=== PATIENT | male | born 1960 | race Caucasian/White ===

== ENCOUNTER 2024-05-08 14:43 | Outpatient (CLI) | payer OTHER, SELFPAY ==
[2024-05-08 15:01] LABS: Hematocrit 44.7 % (42.0-52.0); Hemoglobin 14.8 g/dL (14.0-18.0); Mean Corpuscular HGB Conc 33.1 g/dl (32-36); Mean Corpuscular Hemoglobin 30.8 pg (26-34); Mean Corpuscular Volume 92.9 fl (80-100); Mean Platelet Volume 8.7 fl (7.4-10.4); Platelet Count Result 200 k/mm3 (150-375); Red Blood Count 4.81 M/mm3 (4.6-6.20); Red Cell Distribution Width 13.2 % (11.5-14.5)
[2024-05-08 15:07] LABS: Blood Urea Nitrogen 21 mg/dL (8-26); Carbon Dioxide 25 mmol/L (22-30); Chloride 102 mmol/L (98-109); Estimated Glomerular Filt Rate > 60; Glucose 165 mg/dL (70-105); Ionized Calcium (POC) 1.18 mmol/L (1.11-1.31); Potassium 3.9 mmol/L (3.5-4.9); Sodium 139 mmol/L (138-146)
== END 2024-05-08 14:44 | disposition home or self-care (01) ==
PROVIDERS: PCP Internal Medicine; Visit Provider Internal Medicine Hematology & Oncology
DX: D75.1 Secondary polycythemia (principal)
CPT/HCPCS: 36415; 80047; 85027

== ENCOUNTER 2025-05-08 13:35 | Outpatient (CLI) | payer OTHER, SELFPAY ==
--- OUTSIDE RECORDS SUMMARY | 2025-05-08 13:40 | XMS_ITS | Data Portability ---
Author Organization [facility] [place] Address [address] [address] Care Team Providers Care Junior Brand Manager Name Role Phone LINO MOON Primary Care Provider [phone] Assessment Encounter Date Assessment Date Assessment LastModified by Organization Details LastModified Time 11/30/2024 11/30/2024 Telehealth visit Mode of communication: Secure audiovisual communication Patient location: [place], [place] Physician location: [facility], [place] Total time spent with patient: 11 minutes Total time spent on visit: 21 minutes Assessment: Familial hypercholesterole ines: Noticing increasing myalgias. Discussed options and after shared decision-making we will discontinue rosuvastatin and continue Repatha. CK levels normal. Encouraged to reach out to us regarding update on symptoms in 2 weeks' time. Check follow-up CMP and lipid panel in 8 weeks. Continue current dose of Vascepa. Diet/exercise discussed at length. Coronary artery disease with no angina: Maintained on single antiplatelet therapy with aspirin. No angina. Status post CABG to LAD with OM lesion managed medically. Hypertension: Low-sodium diet, ambulatory blood pressure monitoring. Continue losartan 50 mg daily. Aortic stenosis: Moderate. No symptoms. We will continue monitoring with periodic echocardiograms. Atrial fibrillation: Postoperative. Encouraged self rhythm monitoring and reaching out to us if atrial fibrillation noted on smart watch to consider 30 day event monitor and consideration for resumption of anticoagulation. Type 2 diabetes: Maintained on Mounjaro monitored per endocrinology MARY: Currently intermittently using CPAP. Discussed relationship with untreated sleep apnea and AFib. Encouraged follow-up with sleep specialist to optimize CPAP treatment. We will request a routine in office assessment in 2 months with CMP and lipid panel prior. [email or web address] Not available 11/30/2024 12:26:15 Plan of Treatment Reminders Order Date Submit Date Provider Last Modified By Organization Details Last Modified Time Details Appointments ANY 15 2024 01:15P Sebas Reagan MD Not available Not available Not available Lab CBC [address] Outpatient Lab, [address] [place] [address], [address], 03/29/2025 14:20:24 CMP, serum or plasma [address] Outpatient Lab, [facility] [place], [address], 03/29/2025 14:20:24 lipid panel, serum [address] Outpatient Lab, [address] [place] [address], [address], 03/29/2025 14:20:24 CMP, serum or plasma 2024 025 [facility] Outpatient Lab, [facility] [place], [address], 04/24/2025 09:32:33 lipid panel, serum 2024 025 [facility] Outpatient Lab, [address] [place] [address], [address], 04/24/2025 09:32:33 CMP, serum or plasma 2024 025 [facility], [address] [place], [address], 01/29/2025 11:05:29 lipid panel, serum 2024 025 [facility], [address] [place], [address], 01/29/2025 11:16:19 BMP, serum or plasma 2023 025 [facility] Out[facility], [address] [place], [address], 10/31/2024 09:45:50 CBC 2023 025 [facility] Out[facility], [address] [place] [address] , [place], [address], 10/31/2024 09:45:50 lipid panel, serum 2023 025 [facility], [address] [place] [address] [place], [address], 11/28/2024 14:53:55 hepatic function panel, serum 2023 025 [facility] Out[facility], [address] [place] [address] [place], [address], 10/31/2024 09:45:50 Referral None recorded. Procedures None recorded. Surgeries None recorded. Imaging US, echocardi ogram, transthor acic, complete, w/ color flow 2024 025 [facility], [address], [place], [address], 04/17/2025 15:22:59 Medication Orders Xarelto 20 mg tablet 2024 025 [facility], [address] [place] [address] [address], [place], [address], 03/29/2025 17:08:52 Tricor 145 mg tablet 2024 025 [facility]armacy #[id number], [address] [place], [address], 02/02/2025 14:55:36 aspirin 81 mg tablet,de layed release 2023 024 [facility]/Pharmacy #[id number], [address] [place], [address], 09/27/2024 16:05:57 Repatha SureClick 140 mg/mL subcutane ous pen injector 2023 1204 024 [facility]/Pharmacy #[id number], [address] [place], [address], 09/27/2024 16:05:51 Patient TargetsNo targets recorded. Patient Instructions Encounter Date Encounter Id Patient Instructions Last Modified By Organization Details Last Modified Time 09/27/2024 [id number] 1. Labs 4 weeks 2. Follow up 4 months [email or web address] Not available 09/27/2024 16:08:05 02/02/2025 [id number] A healthy lifestyle: care instructions Not available 02/02/2025 14:55:33 03/29/2025 [id number] A healthy lifestyle: care instructions Not available 03/29/2025 14:20:24 Reason for Referral None Reported. Results Created Date Observation Date Name Description Value Unit Range Abnormal Flag Note LastModifiedBy Organization Detail LastModifiedTime 09/29/2009/29/2024 Gluco se [Mass /volu me] in Blood by Autom ated test strip glucose [mass/volume ] in blood by automated test strip 125 mg/dL low: 70mg/d Lhigh: 99mg/d L high Not Available Not Available 03/29/2025 04:09:25 09/29/20 24 09/29/2024 Gluco se [Mass /volu me] in Blood by Autom ated test strip interpretati on and review of laboratory results Abnorm al Not Available Not Available 04:09:25 09/29/20 24 09/29/2024 Gluco se [Mass /volu me] in Blood by Autom ated test strip glucose [mass/volume ] in blood by automated test strip 107 mg/dL low: 70mg/d Lhigh: 99mg/d L high Not Available Not Available 03/29/2025 04:09:25 09/29/20 24 09/29/2024 Gluco se [Mass /volu me] in Blood by Autom ated test strip interpretati on and review of laboratory results Abnorm al Not Available Not Available 04:09:25 12/06/09/29/2024 Hemog lobin A1c/H emogl obin. total in Blood hemoglobin A1C/hemoglob in.total in blood 6.9 % high: 5.7% high HGB A1C 6.9 (H) <5.7 % 09/29 7:57 AM [facility] Not Available Not Available 02/02/2025 14:28:14 09/29/20 24 09/29/2024 Hemog lobin A1c/H emogl obin. total in Blood glucose mean value [mass/volume ] in blood estimated from glycated hemoglobin 151 mg/dL ESTIM ATED AVG GLUCO SE 151 mg/dL 09/29 7:57 AM [facility] Not Available Not Available 02/02/2025 14:28:14 09/29/20 24 09/29/2024 Hemog lobin A1c/H emogl obin. total in Blood interpretati on and review of laboratory results Abnorm al Not Available Not Available 14:28:14 09/29/20 24 10/03/2024 Patho logy study pathology study [facility] ment of [facility] ne [address] [place] [address] Teleph one: , extens ion [id number] Pathol ogy Report Surgic al Pathol ogy Report Name: CHRISTOPH QUARLES Drew KINGSLEY JR. Specim en #: [id number] Age: [birth year] (Age: 64) Locati on: [place] Sex: M Proced ure Date: Hospit al #: [id number] Date Receiv ed: Date Report ed: 2023 Provid er: BLANCA Alva MD Source : Soft tissue mass, abdomi nal wall Clinic al Histor y: Right upper quadra nt abdomi nal mass. FINAL DIAGNO SIS: Soft tissue , abdomi nal wall mass, excisi on: -Matur e fibroa dipose tissue consis tent with lipoma . Gross Descri ption: Receiv ed in formal in, labele d with a patien t label and as abdom inal wall mass are multip le disrup rukhsana pieces of soft yellow tissue , 10.0 x 7.0 x 1.5 cm in aggreg ate. Sectio ns reveal pale yellow cut surfac es. Repres entati ve tissue is submit rukhsana in casset te 1. Gross examin ation (when applic able), interp retati on, and [facility] [address] [place] [address]. Elec annamaria tapia Signed Out VENICE Hilliard MD Not Available Not Available 04:09:25 11/02/19 25 11/02/2024 Hemog lobin A1c/H emogl obin. total in Blood hemoglobin A1C, POC 7.1 % low: 4%high : 5.6% Hemog lobin A1C, POC 7.1 4.0 - 5.6 % Not Available Not Available 02/02/2025 03:30:42 02/06/20 25 02/05/2025 Hemog lobin A1c/H emogl obin. total in Blood hemoglobin A1C, POC 7.4 % low: 4%high : 5.6% Hemog lobin A1C, POC 7.4 4.0 - 5.6 % Not Available Not Available 03/20/2025 15:04:44 04/17/20 25 04/16/2025 US, echoc ardio gram, trans thora cic, compl ete, w/ color flow No observ ation record ed. [facility] [address] [place], [address], 04/18/2025 14:58:10 04/19/20 event monit or No observ ation record ed. [facility] [address], [place], [address], 04/20/2025 14:22:35 Result Notes None recorded. Problems Name Problem SNOMED Code Status Onset Date Resolution Date Notes Provider Name and Address Organization Details Recorded Time Atheroscler osis of coronary artery without angina pectoris [id number] 03 Active 2023 Tyler Reagan MD Attn: Rebekah bahena,[address], [place], [address], [facility] 4 16:22:09 Essential hypertensio n 07491603 Active 2023 Tyler Reagan MD Attn: Rebekah bahena,[address], [place], [address], [facility] 4 16:22:10 Thoracic aortic aneurysm without rupture 41652755 Active 2023 Tyler Reagan MD Attn: Rebekah bahena,[address], [place], [address], [facility] 4 16:22:12 Pure hypercholes terolemia 374007828 Active 2023 Tyler Reagan MD Attn: Rebekah bahena,[address], [place], [address], [facility] 4 16:22:14 Paroxysmal atrial fibrillatio n 973083204 Active 2023 Tyler Reagan MD Attn: Rebekah bahena,[address], [place], [address], [facility] 4 16:22:17 Type 2 diabetes mellitus without complicatio n 495399121 Active 2023 Tyler Reagan MD Attn: Rebekah bahena,[address], [place], [address], [facility] 4 16:23:01 Aortic valve stenosis 26878172 Active 2023 Tyler Reagan MD Attn: Rebekah bahena,[address], [place], [address], [facility] 4 16:23:59 Problem Notes None recorded. Procedures Surgical History Date Name Laterality Status Provider Name and Address Organization Details Recorded Time 4 Colonoscopy completed Tarsha Andersen RN [facility] 09/27/2024 15:46:04 4 resection of polyp completed Tarsha Andersen RN [facility] 09/27/2024 15:46:35 3 open heart surgery completed Tarsha Andersen RN [facility] 09/27/2024 15:52:19 Imaging Results None recorded. Procedure Notes None recorded. Medical Equipment None Reported. Allergies Allergen ID Allergen Name Allergen Category Reaction Reaction Severity Criticality Documentation Date Start Date Code Code System Note Provider Name and Address Organization Details Recorded Time [id number] niacin medicatio n Not available Not available Not available 09/27/2024 7393 RxNorm VALDEMAR Martinez, [facility] 4 15:48:07 456780 iodine medicatio n Not available Not available Not available 09/27/2024 5933 RxNorm VALDEMAR Martinez, [facility] 4 15:48:12 Medications Name Sig Start Date Stop Date Status Note LastModified by Organization Details LastModified Time losartan 50 mg tablet TAKE 1/2 TABLET BY MOUTH DAILY 2024 active Not Available Not Available Not Avai lable latanoprost 0.005 % eye drops INSTILL 1 DROP INTO BOTH EYES AT BEDTIME active Not Available Not Available No t Available metoprolol tartrate 100 mg tablet TAKE 1 TABLET BY MOUTH TWICE A DAY 09/27 completed Not Available Not Available Not Available amiodarone 200 mg tablet TAKE 1 TABLET BY MOUTH EVERY DAY 09/27 completed Not Available Not Available Not Available hydrocodone 5 mg-acetamin ophen 325 mg tablet prn active Not Available Not Available No t Available amlodipine 5 mg tablet TAKE 1 TABLET (5 MG TOTAL) BY MOUTH DAILY. 09/27 completed Not Available Not Available Not Available aspirin 81 mg tablet,gabbi yed release TAKE 1 TABLET BY MOUTH EVERY DAY active Not Available Not Available No t Available tramadol 50 mg tablet TAKE 1 TABLET (50 MG TOTAL) BY MOUTH EVERY 6 (SIX) HOURS NEEDED FOR ACUTE PAIN active Not Available Not Available No t Available triamcinolo ne acetonide 0.1 % topical cream APPLY A SMALL AMOUNT TO AFFECTED AREA TWICE A DAY NEEDED FOR LEFT ARM active Not Available Not Available No t Available glimepiride 1 mg tablet TAKE 1 TABLET BY MOUTH DAILY BEFORE BREAKFAST . active Not Available Not Available No t Available tamsulosin 0.4 mg capsule TAKE 1 CAPSULE BY MOUTH EVERY DAY active Not Available Not Available No t Available baclofen 10 mg tablet TAKE 1 TABLET BY MOUTH THREE TIMES A DAY active Not Available Not Available No t Available cephalexin 500 mg capsule TAKE 1 CAPSULE BY MOUTH FOUR TIMES A DAY FOR 7 DAYS 09/27 completed Not Available Not Available Not Available metformin 1,000 mg tablet TAKE 1 TABLET BY MOUTH TWICE A DAY active Not Available Not Available No t Available prednisone 50 mg tablet PLEASE SEE ATTACHED FOR DETAILED DIRECTION S 09/27 completed Not Available Not Available Not Available gabapentin 300 mg capsule TAKE 1 CAPSULE BY MOUTH THREE TIMES A DAY 09/27 completed Not Available Not Available Not Available Banophen 25 mg capsule TAKE 2 TABLET/CA PSULE (50 MG TOTAL) BY MOUTH ONCE FOR 1 DOSE TAKE ONE HOUR PRIOR TO CT SCAN. 09/27 completed Not Available Not Available Not Available folic acid 1 mg tablet TAKE 1 TABLET BY MOUTH EVERY DAY IN THE MORNING active Not Available Not Available No t Available zolpidem 10 mg tablet TAKE 1 TABLET BY MOUTH EVERY DAY AT BEDTIME NEEDED FOR SLEEP 09/27 completed Not Available Not Available Not Available rosuvastati n 20 mg tablet TAKE 1 TABLET BY MOUTH EVERY DAY 11/30 completed Not Available Not Available Not Available rosuvastati n 40 mg tablet TAKE 1 TABLET BY MOUTH EVERY DAY 09/27 completed Not Available Not Available Not Available eszopiclone 3 mg tablet TAKE 1 TABLET (3 MG TOTAL) BY MOUTH NIGHTLY TAKE IMMEDIATE LY BEFORE BEDTIME active Not Available Not Available No t Available fenofibrate nanocrystal lized 145 mg tablet TAKE 1 TABLET BY MOUTH EVERY DAY active Not Available Not Available No t Available ferrous sulfate 324 mg (65 mg iron) tablet,gabbi yed release TAKE 1 TABLET BY MOUTH EVERY OTHER DAY active Not Available Not Available No t Available GaviLyte-G 236 gram-22.74 gram-6.74 gram-5.86 gram oral solution TAKE 4,000 ML BY MOUTH ONCE FOR 1 DOSE. active Not Available Not Available No t Available Xarelto 20 mg tablet TAKE ONE TABLET BY MOUTH EVERY DAY active Not Available Not Available No t Available icosapent ethyl 1 gram capsule TAKE 2 CAPSULES BY MOUTH TWICE A DAY WITH MEALS active Not Available Not Available No t Available Eliquis 5 mg tablet TAKE 1 TABLET BY MOUTH TWICE A DAY 09/27 completed Not Available Not Available Not Available Farxiga 10 mg tablet TAKE 1 TABLET (10 MG TOTAL) BY MOUTH EVERY MORNING. active Not Available Not Available No t Available Repatha SureClick 140 mg/mL subcutaneou s pen injector INJECT 1 ML SUBCUTANE OUSLY EVERY 2 WEEKS 2024 active Not Available Not Available Not Avai lable Tresiba FlexTouch U-200 insulin 200 unit/mL (3 mL) subcutaneou s pen INJECT 62 UNITS UNDER THE SKIN DAILY active Not Available Not Available No t Available Accu-Chek Guide test strips USE TO TEST BLOOD SUGAR ONCE DAILY. NEED NEW DISCOUNT CARD active Not Available Not Available No t Available Rybelsus 14 mg tablet TAKE 1 TABLET (14 MG TOTAL) BY MOUTH DYE WINCH OPERATOR BEFORE BREAKFAST 02/02 completed Not Available Not Available Not Available Rybelsus 7 mg tablet TAKE 1 TABLET BY MOUTH EVERY DAY IN THE MORNING 09/27 completed Not Available Not Available Not Available Jatenzo 237 mg capsule TAKE 1 CAPSULE ONCE A DAY BY ORAL ROUTE BEFORE BREAKFAST FOR 90 DAYS. 09/27 completed Not Available Not Available Not Available Mounjaro 5 mg/0.5 mL subcutaneou s pen injector PLEASE SEE ATTACHED FOR DETAILED DIRECTION S active Not Available Not Available No t Available Mounjaro 2.5 mg/0.5 mL subcutaneou s pen injector PLEASE SEE ATTACHED FOR DETAILED DIRECTION S 03/29 completed Not Available Not Available Not Available Vitals Date Recorded Body height Body mass index (BMI) Body weight Respiratory rate Heart rate Oxygen saturation Oxygen saturation in Arterial blood by Pulse oximetry Systolic And Diastolic Provider Name and Address Organization Details Last Updated DateTime 5 180.34 cm 39.1 kg/m2 600974. 86 g 18 /min 86 /min 97 % 97 % 142/78 mm[Hg] Sherie Donnelly LPN [place] [facility] 5 14:39:50 Date Recorded Body height Body mass index (BMI) Body weight Heart rate Oxygen saturation Oxygen saturation in Arterial blood by Pulse oximetry Systolic And Diastolic Provider Name and Address Organization Details Last Updated DateTime 5 180.34 cm 38.1 kg/m2 931397. 72 g 95 /min 96 % 96 % 124/50 mm[Hg] Tarsha Andersen RN [facility] 5 14:05:04 Date Recorded Body weight Body mass index (BMI) Body height Heart rate Respiratory rate Oxygen saturation Oxygen saturation in Arterial blood by Pulse oximetry Systolic And Diastolic Provider Name and Address Organization Details Last Updated DateTime 4 777676. 9 g 38.4 kg/m2 180.34 cm 74 /min 18 /min 98 % 98 % 118/60 mm[Hg] Tarsha Andersen RN [facility] 15:54:35 Social History Question Answer Notes LastModified by [employer] ion Details LastModified Time Tobacco Smoking Status Never Smoker Tarsha Andersen RN null, [facility] 09/27/2024 15:51:40 What Is Your Level Of Caffeine Consumption? Occasional Information not available 09/27/2024 What Was The Date Of Your Most Recent Tobacco Screening? 03/29/2025 Information not available 03/29/2025 Has Tobacco Cessation Counseling Been Provided? No [email or web address] Information not available 02/02/2025 Sex: Male Functional Status Question Answer Note LastModified by Organization D etails LastModified Time Do you or have you ever used any other forms of tobacco or nicotine? No Information not available 03/29/2025 What is your level of alcohol consumption? None Information not available 09/27/2024 Mental Status None recorded. Family History Nothing Reported. Medical History No medical history recorded. Past Encounters Encounter ID Performer Location Encounter Start Date Encounter Closed Date Diagnosis/Indication Diagnosis SNOMED-CT Code Diagnosis ICD10 Code Diagnosis Note [id number] Tyler Reagan MD [facility] [place] [facility] [address] [place] [address] 09/27/2024 15:30:21 10/06/2024 11:08:42 Atherosclerosis of coronary artery without angina pectoris 5259929235 98391 I25.10 Cardiac catheteriz ation in September 13, 2023 with 70% proximal LAD stenosis status post CABG with STOVER. 70% OM1 stenosis and 30% mid RCA stenosis managed medically. Continue aspirin 81 mg daily. No angina and regular aerobic exercise encouraged . Thoracic a ortic aneurysm without rupture 04091454 I71.20 Status post surgical repair by Dr. Morales at [facility] in August 2023. Continue monitoring . Essential hypertension 98867860 I10 Low-sodium diet, ambulatory blood pressure monitoring . Continue losartan 25 mg daily. Pure hypercholesterolemia 366326231 E78.00 Lipid panel in June 2024 markedly suboptimal with triglyceri franko 344, HDL 23, LDL 36. Myalgias with higher intensity statin. Initiate Repatha 140 mg every 2 weeks. Check follow-up CMP and lipid panel 4 weeks after initiation of Repatha. Preoperati ve cardiovascular examination 293245886 Z01.810 Low cardiac risk to proceed with planned right upper quadrant mass excision, Paroxysmal atrial fibrillation 391191646 I48.0 noted in the postoperat emily duration. No recurrence on 30 day event monitor. Anticoagul ation discontinu ed after shared decision-m aking. Continued need monitoring via smart watch reinforced . Type 2 damian betes mellitus without complication 315717008 E11.9 managed by endocrinol ogy. We discussed cardiac risk reduction benefits of Ozempic/We govy/Mounodell marifer over Rybelsus and he plans to discuss further with his endocrinol ogy team regarding potentiall y switching. Aortic valve stenosis 60 977144 I35.0 Echocardio gram June 2023 with moderate aortic stenosis with JONATHAN 1.3, mean gradient 12 mmHg, V max 236 cm/s. We will plan periodic echocardio grams to determine timing of TAVR referral [id number] Tyler Reagan MD [facility] [place] [address] [place] [address] 11/30/2024 10:20:58 12/09/2024 11:37:17 Familial hypercholesterolemia 694732803 E78.01 Paroxysmal atrial fibrillation 194778165 I48.0 Obstructiv e sleep apnea syndrome 86819808 G47.33 [id number] Tyler Reagan MD [facility] [place] [facility] [address] [place] [address] 02/02/2025 14:26:24 02/05/2025 14:58:55 Hypertriglyceridemia 346535559 E78.1 continue Repatha 140 mg subcutaneo us q.2 weeks, or Vascepa. Due to markedly suboptimal triglyceri franko discussed options at length. Lifestyle modificati ons including aerobic exercise, cutting process and carbohydra te rich food discussed. Initiate fenofibrat e 140 mg daily. Check follow-up CMP and lipid panel. Aortic valve stenosis 60 557350 I35.0 Moderate aortic stenosis which is managed conservati vely. We will plan echocardio gram in 6-12 months. Currently asymptomat ic. Echocardio gram June 2023 with moderate aortic stenosis with JONATHAN 1.3, mean gradient 12 mmHg, V max 236 cm/s. Atheroscle rosis of coronary artery without angina pectoris 9570910889 68428 I25.10 Status post CABG x1. Om and RCA stenosis managed medically. Single antiplatel et therapy with aspirin. Regular aerobic exercise encouraged . Cardiac catheteriz ation in August 2023 with 70% proximal LAD stenosis status post CABG with STOVER. 70% OM1 stenosis and 30% mid RCA stenosis managed medically. Paroxysmal atrial fibrillation 311745931 I48.0 Not noted on 30 day event monitor. Anticoagul ation discontinu ed after shared decision-m juddg. Encouraged routine monitoring with his smart watch to be checked around the clock. He will reach out to us if there is recurrence of atrial fibrillati on. We discussed options of implantabl e loop monitor for long-term rhythm detection which he wishes to defer and is reasonable at this juncture. Obesity 402733504 E66.9 Continue current dose of Mounjaro managed per his endocrinol ogy team. Diet/ exercise discussed. He plans to reach out to his endocrinol ogy team to consider escalation of GLP 1 RA dosage. [id number] Tyler Reagan MD [facility] [place] [facility] [address] [place] [address] 03/29/2025 13:46:55 03/30/2025 13:52:09 Obese class II 0622682150 63134 E66.812 Ongoing efforts at diet/exerc ise encouraged . On Mounjaro managed by endocrinol ogy. Paroxysmal atrial fibrillation 051065178 I48.0 CHADS2 Vasc score elevated with age, CAD, hypertensi on, type 2 diabetes. Discussed options of anticoagul ation. Denies bleeding diathesis in the middle initiate rivaroxaba n 20 mg daily given BMI greater than 35. We will consider evaluation for left atrial appendage occlusion in case of any bleeding diathesis. Coronary arteriosclerosis 07609575 I25.10 Status post CABG x1. . Cardiac catheteriz ation in August 2023 with 70% proximal LAD stenosis status post CABG with STOVER. 70% OM1 stenosis and 30% mid RCA stenosis managed medically. No angina. We will continue aspirin along with anticoagul ation for now and consider discontinu ing aspirin case of any bleeding diathesis. Thoracic a ortic aneurysm without rupture 92501441 I71.20 Status post surgical repair by Dr. Morales at [facility] in August 2023. We will need continued monitoring . Currently asymptomat ic. Aortic uri nosis, non-rheumatic 461405818 I35.0 Check follow-up echocardio gram to monitor for progressio n of aortic stenosis. Health Concerns Section Related Observation LastModified by Organization Detai ls LastModified Time None Recorded Concern Status LastModified by Organization Details LastModified Time None Recorded Advance Directives Directive None Recorded Payers Insurance Date Sequence Insurance Name Policy Number Policy Gonzalez Covered Member ID Gonzalez Member ID Guarantor Name 04/24/2025 1 [employer] [facility] B[employer] [id number] Chris Quarles [id number] OI Chris Quarles 09/27/2024 1 [employer] - ALLIED BENEFITS - OPEN ACCESS [id number] Chris Quarles [id number] OI Chris Qurales 01/14/2025 1 UNSPECIFIED REMIT PAYOR Chris Quarles Notes Date Note Type Note Provider Name and Address Organization Details Recorded Time 4 text/html Chris Quarles Jr. is a 64 old male who presents for follow-up of CAD, ascending aortic aneurysm repair, hypertension and postoperative atrial fibrillation. No recurrence of atrial fibrillation noted on smart watch. Denies chest pain or pressure. Denies palpitations, presyncope or syncope. Reports exertional fatigue which is improving following a bout of postoperative anemia after his colonoscopy. Hemoglobin levels are improving. Reports difficulty wearing CPAP and plans to follow-up with a sleep specialist. Denies lower extremity edema. BP normal on current dose of losartan.CARDIAC DIAGNOSTICS:CT chest, 07/28/2023: Thoracic aortic aneurysm at 5.0 centimetreTransthoracic echocardiogram 07/19/2023: LVEF 60-65%, normal RV function, functionally bicuspid aortic valve with fusion of left and right cusp with moderate aortic stenosis and no significant aortic insufficiency (JONATHAN 1.3 cm2, mean gradient 12 mmHg ) with grade 2 diastolic dysfunctionTreadmill nuclear stress test if 02/09/2022: No fixed or reversible perfusion defects. No TID. No EKG changes diagnostic for ischemia at 7 METS on the Jonathan protocol.Cardiac catheterization, 07/07/2016: 20% mid LAD stenosis, codominant RCA with mid 20% stenosis, elevated LVEDP of 20 mmHgCardiac catheterization August 2023: 70% mid LAD and OM stenosisStatus post ascending aortic aneurysm repair 30 mm gel weave graft and single-vessel CABG (STOVER-LAD) by Dr. Morales at [facility] in Augustostoperative atrial fibrillation noted on Holter monitor with burden of 25%, no significant PVCs or clinically significant pauses noted Tyler Reagan MD Attn: Accounting,[address] [place], [address], [facility] 09/27/2024 16:24:17 5 text/html Chris Khalilyao Ulloa. is a 64 old male who presents for follow-up of CAD, ascending aortic aneurysm repair, moderate aortic stenosis, familial hypercholesterolemia, type 2 diabetes, hypertension and postoperative atrial fibrillation. Interval history: Reports dietary indiscretions resulting in increasing cholesterol levels. Reports back pain which he has noticed after initiation of Repatha. Denies chest pain or pressure. Has not remain functionally as active due to the weather. Sporadic tracings of AFib reported on smart watch. Labs:11/28/2024: Sodium 140, potassium 4.4, chloride 105, CO2 23, BUN 18, creatinine 1.0, alk phos 75, CK 141, total cholesterol 130, HDL 23, TG 621,1922-5: HGB A1c 7.111: HGB 11.6, WBC 7.0, platelets 34166/07/2024: TSH 2.25CARDIAC DIAGNOSTICS:CT chest, 07/28/2023: Thoracic aortic aneurysm at 5.0 centimetreTransthoracic echocardiogram 07/19/2023: LVEF 60-65%, normal RV function, functionally bicuspid aortic valve with fusion of left and right cusp with moderate aortic stenosis and no significant aortic insufficiency (JONATHAN 1.3 cm2, mean gradient 12 mmHg ) with grade 2 diastolic dysfunctionTreadmill nuclear stress test if 02/09/2022: No fixed or reversible perfusion defects. No TID. No EKG changes diagnostic for ischemia at 7 METS on the Jonathan protocol.Cardiac catheterization, 07/07/2016: 20% mid LAD stenosis, codominant RCA with mid 20% stenosis, elevated LVEDP of 20 mmHgCardiac catheterization August 2023: 70% mid LAD and OM stenosisStatus post ascending aortic aneurysm repair 30 mm gel weave graft and single-vessel CABG (STOVER-LAD) by Dr. Morales at [facility] in Augustostoperative atrial fibrillation noted on 14 day Holter monitor Done 09/29/2023 with burden of 25%, no significant PVCs or clinically significant pauses noted 30 day MCOT done on 04/24/2024 after greater than 6 weeks on amiodarone: No atrial fibrillation noted, average heart rate 75, Pac and PVC burden less than 1% Tyler Reagan MD Attn: Accounting,[address] [place], [address], [facility] 11/30/2024 13:50:02 5 text/html Chris Quarles Jr. is a 64 old male who presents for follow-up of CAD, ascending aortic aneurysm repair, moderate aortic stenosis, familial hypercholesterolemia, type 2 diabetes, hypertension and postoperative atrial fibrillation. Interval history: triglycerides continue to remain greater than 600. Reports compliance with Repatha and Vascepa. No chest pain or pressure. Smart watch has not shown any recurrence of atrial fibrillation. Walking 3 times a day with his dog for approximately 20 minutes each visit.CARDIAC DIAGNOSTICS:CT chest, 07/28/2023: Thoracic aortic aneurysm at 5.0 centimetreTransthoracic echocardiogram 07/19/2023: LVEF 60-65%, normal RV function, functionally bicuspid aortic valve with fusion of left and right cusp with moderate aortic stenosis and no significant aortic insufficiency (JONATHAN 1.3 cm2, mean gradient 12 mmHg ) with grade 2 diastolic dysfunctionTreadmill nuclear stress test if 02/09/2022: No fixed or reversible perfusion defects. No TID. No EKG changes diagnostic for ischemia at 7 METS on the Jonathan protocol.Cardiac catheterization, 07/07/2016: 20% mid LAD stenosis, codominant RCA with mid 20% stenosis, elevated LVEDP of 20 mmHgCardiac catheterization August 2023: 70% mid LAD and OM stenosisStatus post ascending aortic aneurysm repair 30 mm gel weave graft and single-vessel CABG (STOVER-LAD) by Dr. Morales at [facility] in Augustostoperative atrial fibrillation noted on 14 day Holter monitor Done 09/29/2023 with burden of 25%, no significant PVCs or clinically significant pauses noted 30 day MCOT done on 04/24/2024 after greater than 6 weeks on amiodarone: No atrial fibrillation noted, average heart rate 75, Pac and PVC burden less than 1% Tyler Reagan MD Attn: Accounting,[address] [place] [address], [phone], [facility] 02/02/2025 15:22:56 5 text/html Chris Quarles Jr. is a 64 old male who presents for follow-up of CAD, ascending aortic aneurysm repair, moderate aortic stenosis, familial hypercholesterolemia, type 2 diabetes, hypertension and postoperative atrial fibrillation. Interval history: event monitor with paroxysmal of atrial fibrillation noted. No chest pain or pressure. No symptomatic awareness. He is losing weight through diet/exercise. Denies bleeding diathesis. Reports optimal blood pressure at home. Denies excessive caffeine use and has cut back on diet soda. Does not drink alcohol. CARDIAC DIAGNOSTICS:CT chest, 07/28/2023: Thoracic aortic aneurysm at 5.0 centimetreTransthoracic echocardiogram 07/19/2023: LVEF 60-65%, normal RV function, functionally bicuspid aortic valve with fusion of left and right cusp with moderate aortic stenosis and no significant aortic insufficiency (JONATHAN 1.3 cm2, mean gradient 12 mmHg ) with grade 2 diastolic dysfunctionTreadmill nuclear stress test if 02/09/2022: No fixed or reversible perfusion defects. No TID. No EKG changes diagnostic for ischemia at 7 METS on the Jonathan protocol.Cardiac catheterization, 07/07/2016: 20% mid LAD stenosis, codominant RCA with mid 20% stenosis, elevated LVEDP of 20 mmHgCardiac catheterization August 2023: 70% mid LAD and OM stenosisStatus post ascending aortic aneurysm repair 30 mm gel weave graft and single-vessel CABG (STOVER-LAD) by Dr. Morales at [facility] in Augustostoperative atrial fibrillation noted on 14 day Holter monitor Done 09/29/2023 with burden of 25%, no significant PVCs or clinically significant pauses noted 30 day MCOT done on 04/24/2024 after greater than 6 weeks on amiodarone: No atrial fibrillation noted, average heart rate 75, Pac and PVC burden less than 1% Tyler Reagan MD Attn: Accounting,[address] [place], [address], [facility] 03/29/2025 14:40:12
--- OUTSIDE RECORDS SUMMARY | 2025-05-08 13:40 | XMS_ITS | Encounter Summary ---
Author Organization [facility] Address [address] [place] [address] Care Team Providers Care Human Resource Internship Name Role Phone Unavailable Primary Care Provider Unavailabl e Encounter Details Date Type Department Care Team (Late st Contact Info) Description 02/16/2020 Lab Requisition [facility] DermPath Lab [address] [facility] [place] [address] Hannah Roman MD [address] [facility] [address] [place] [address] Social History Tobacco Use Types Packs/Day Years Used Date Smoking Tobacco: Never Assessed Sex and Gender Information Value Date Recorded Sex Assigned at Not on file Legal Sex Male 12:21 PM CDT Gender Identity Not on file Sexual Orientation Not on file documented as of this encounter Plan of Treatment Not on file documented as of this encounter Procedures Procedure Name Priority Date/Time Associated Diagnosis Comments DERMATOPATH TECHNICAL REPORT Routine 02/15/2020 12:00 AM CDT documented in this encounter Results * DERMATOPATH TECHNICAL REPORT (02/15/2020 12:00 AM CDT) Case Report Dermatopathology Report Case: [id number] Authorizing Provider: Hannah Roman MD Collected: 02/15/2020 12:00 AM Ordering Location: [facility] DermPath Lab Received: 02/16/2020 08:05 AM Pathologist: Frances Covarrubias MD Specimen: Skin, right clifton 0 12:53 PM CDT DERMATOPATHOLOGY LABORATORY Addendum 1 At the request of the diagnosing physician, the technical component for GMS was performed by [facility] Dermatopathology Laboratory. 0 12:53 PM CDT DERMATOPATHOLOGY LABORATORY Addendum electronically signed by Frances Covarrubias MD on 02/20/2020 at 1253 CDT Clinical History Eczema vs NMSC. Chamberlain papule, crusted papule. 0 12:53 PM CDT DERMATOPATHOLOGY LABORATORY Gross Description Specimen A: Received is one formalin filled container labeled with the patient's name and designated right clifton. The specimen consists of a shave measuring [id number]. Jar 0. [facility] Dermatopathology Laboratory performed the technical component only. 0 12:53 PM CDT DERMATOPATHOLOGY LABORATORY Embedded Images 0 12:53 PM CDT DERMATOPATHOLOGY LABORATORY DISCLAIMER An external and internal positive and negative controls are appropriate for the histochemical, immunohistochemical and immunofluorescence stain(s) in this case (if any), except where stated explicitly. The performance characteristics of the stain(s) cited in this report were developed and its performance characteristic determined by the Dermatopathology Laboratory at [facility], directed by Dr. Rashaad Valenzuela. These tests need not be, and therefore are not, approved by the [place] Food and Drug Administration. The tests are used for clinical purposes. 0 12:53 PM CDT DERMATOPATHOLOGY LABORATORY at 1416 CDT Pathology/Cytolog y TISSUE SPECIMEN FROM SKIN / Unknown 02/15/2020 02/16/2020 8:05 AM CDT Hannah Roman MD LAB - PATHOLOGY/CYTOLOGY ORD ERABLES Edited Result - Final DERMATOPATHOLOGY LABORATORY [facility] - Department of Dermatology [address] [place] [address], [address] [place] [address], [facility] [phone] documented in this encounter Visit Diagnoses Not on filedocumented in this encounter
--- OUTSIDE RECORDS SUMMARY | 2025-05-08 13:40 | XMS_ITS | Encounter Summary ---
Author Organization [facility] Care Team Providers Care Industrial Gas Servicer Supervisor Name Role Phone Deepthi Davenport MD Primary Care Provider [phone] Raleigh Villarreal MD Unavailable [phone] Marychuy Pires MD Unavailable [phone] Madyson Carcamo DPM Unavailable [phone] Jacob Truong MD Unavailable [phone] Pietro Estrada MD Unavailable [phone] Raul Cannon MD Unavailable [phone] Lois East MD Unavailable [phone] Chay Emmanuel MD Unavailable [phone] Humble Huerta MD Unavailable [phone] Tyler Reagan MD Unavailable John Vargas OD Unavailable [phone] Antonietta Morales MD Unavailable [phone] Louis Sevilla MD Unavailable [phone] Karla Gu MD Unavailable Encounter Details Date Type Department Care Team (Latest Contact Info) Description 07/07/2016 Orders Only [facility]INCONV Provider, MD Thor [address] [place] [address] Social History Tobacco Use Types Packs/Day Years Used Date Smoking Tobacco: Never Assessed Sex and Gender Information Value Date Recorded Sex Assigned at Not on file Legal Sex Male 7:57 PM OFFLINE EDITOR Gender Identity Male 10/09/2021 7:46 AM OFFLINE EDITOR Sexual Orientation Straight 10/09/2021 7: 46 AM OFFLINE EDITOR documented as of this encounter Plan of Treatment Not on file documented as of this encounter Procedures Procedure Name Priority Date/Time Associated Diagnosis Comments CARDIOLOGY REPORT 09/04/2016 12: 00 AM OFFLINE EDITOR CARDIOLOGY REPORT 07/07/2016 12: 00 AM CDT documented in this encounter Results * CARDIOLOGY REPORT (09/04/2016 12:00 AM OFFLINE EDITOR) Anatomical Region Laterality Modality Other Narrative 09/04/2016 12:00 AM OFFLINE EDITOR Ordered by an unspecified provider. us Historical Provider [facility] CARDIAC SERVICES PROCE DURES Final Result * CARDIOLOGY REPORT (07/07/2016 12:00 AM CDT) Anatomical Region Laterality Modality Other Narrative 07/07/2016 12:00 AM CDT Ordered by an unspecified provider. us Historical Provider CV CARDIAC SERVICES PROCE DURES Final Result documented in this encounter Visit Diagnoses Not on filedocumented in this encounter Additional Health Concerns Infection Onset Date Last Indicated Resolved Time COVID: Suspected 11/25/2021 11/25/2021 11/25/2021 10:00 AM OFFLINE EDITOR documented as of this encounter Care Teams Industrial Gas Servicer Supervisor Relationship Specialty Start Date End Date Deepthi Davenport MD [address] [address] PCP - General Internal Medicine 02/17/19 Raleigh Villarreal MD [address] [place] [address] Referring Physician Cardiovascular Disease 04/26/1911/26/21 Marychuy Pires MD [address] [address] Endocrinology 04/26/19 03/07/24 Madyson Carcamo DPM [address] [facility] [address] [place] [address] Referring Physician Orthopedic Surgery 04/26/19 Jacob Truong MD [address] [place] [address] Referring Physician Ophthalmology 11/12/20 Pietro Estrada MD [address] [facility] [address] [place] [address] Consulting Physician Pulmonary Disease 11/12/20 Raul Cannon MD [address] [facility] [address] [place] [address] Referring Physician Urology 11/12/20 Lois East MD [address] [facility] [address] [place] [address] Consulting Physician Cardiology 11/27/21 12/01/23 Chay Emmanuel MD [address] [place] [address] Referring Physician Cardiology 08/03/23 Humble Huerta MD [address] [place] [address] Consulting Physician Cardiothoracic Surgery 08/03/23 Tyler Reagan MD [address] [facility] [address] [place] [address] Consulting Physician Cardiovascular Disease 09/15/23 John Vargas OD [address] [place] [address] Optometry 03/08/24 Antonietta Morales MD [address] [facility] [address] [place] [address] Consulting Physician Cardiothoracic Surgery 03/08/24 Louis Sevilla MD [address] [address] Referring Physician Hematology 05/15/24 Karla Gu MD [address] [facility] [address] Consulting Physician Pain Management 06/08/24 documented as of this encounter
--- OUTSIDE RECORDS SUMMARY | 2025-05-08 13:40 | XMS_ITS ---
Author Organization [facility] Address [address] [place], [place] [address] Care Team Providers Care Personal Caregiver Name Role Phone NENA CARCAMO Unavailable [phone] Deepthi Freire Unavailable Unavailable REASON FOR VISIT fracture check w/o xray Encounters Encounter Location Date Provider Diagnosis [facility] [address] [place], [place] [id number] 05/03/2024 NENA CARCAMO Plan Of Treatment No Information Progress Notes * DANICA QUAR[birth year]DOB:[birth year] (65 yo M)Acc No.[id number]:05/03/2024 Patient: Drew DANICA CHAPA Provider: Jesús Carcamo DPM :1960 A ge:64 Y S ex:Male Date:05/03/2024 Address:[facility] [address] [place], [place] Subjective: * Chief Complaints: * 1 . Fracture check w/o xray. * Medical History: Objective: * Vitals: Assessment: Plan: * Treatment: * Billing Information: * Visit Code: * Procedure Codes: * Electronic signature of NURYS VIRAMONTES DPM on 05/08/2025 at 01:39 PM CDT Sign off status: Pending * Provider: Jesús Carcamo DPM Date: 05/03/2024 Generated for Toddi julieta/Hailey/eTransmitting on: 0 05/08/2025 01:39 PM CDT
--- OUTSIDE RECORDS SUMMARY | 2025-05-08 13:40 | XMS_ITS | Clinical Summary ---
Author Organization [facility] Address [address] [facility] [place] [address] Care Team Providers Care Blanchard Grinder Operator Name Role Phone Unavailable Primary Care Provider Unavailabl e Source Comments [facility],non-owned Affiliates and Associated Physician Practices is amultiple site organization consisting of ambulatory clinics and hospital sitesin [place], [place], [place] and [place]. This disclosure is being madepursuant to the Care Everywhere program and may not contain all information available regarding this patient. Last updated 18.[facility] oboxo Social History Tobacco Use Types Packs/Day Years Used Date Smoking Tobacco: Never Assessed Sex and Gender Information Value Date Recorded Sex Assigned at Not on file Legal Sex Male 12:21 PM CDT Gender Identity Not on file Sexual Orientation Not on file Plan of Treatment Health Maintenance Due Date Last Done Comments COLOGUARD (AGES 45-75) - COL ON CA SCREENING 1960 COLON MONITORING 1960 COLONOSCOPY - COLON CA SCREENING 1958 CT COLONOGRAPHY - COLON CA SCREENING 1960 Colorectal Cancer Screening 1960 FIT - COLON CA SCREENING 1960 FLEX SIG - COLON CA SCREENING 1958 LIPID TESTING 1960 HEPATITIS C SCREENING 04/26/1976 DTAP/TDAP/TD VACCINES (1 - Tdap) 1977 PNEUMOCOCCAL VACCINE 50+ (1 of 1 - PCV) 2008 ZOSTER VACCINE (1 of 2) 2008 COVID-19 VACCINE ( - 2023-2 5 season) 2024 DEPRESSION SCREENING 10/25/2024 INFLUENZA VACCINE (#1) 2025 Respiratory Syncytial Virus (RSV) Vaccine Pt: or over 60 yrs (1 - 1-dose 75+ series) 2033 HEPATITIS B VACCINE Aged Out No longe r eligible based on patient's age to complete this topic HIB VACCINE Aged Out No longer eligi ble based on patient's age to complete this topic HPV VACCINE Aged Out No longer eligi ble based on patient's age to complete this topic MENINGOCOCCAL (Group B) VACC INE SHARED DECISION-MAKING Aged Out No longer eligibl e based on patient's age to complete this topic MENINGOCOCCAL GROUPS A/C/Y/W VACCINE Aged Out No longer eligible b ased on patient's age to complete this topic Insurance [employer]
--- OUTSIDE RECORDS SUMMARY | 2025-05-08 13:40 | XMS_ITS | Encounter Summary ---
Author Organization [facility] Address [address] [facility] [place] [address] Care Team Providers Care Customs Broker Name Role Phone Unavailable Primary Care Provider Unavailabl e Encounter Details Date Type Department Care Team (Late st Contact Info) Description 07/19/2024 Lab Requisition [facility] - DermPath Lab [address] [facility] [place] [address] Hannah Roman MD [address] [facility] [address] [place] [address] Social History Tobacco Use Types Packs/Day Years [...] Procedure Name Priority Date/Time Associated Diagnosis Comments DERMATOPATHOLOGY Routine 07/19/2024 8:14 AM CDT documented in this encounter Results * DERMATOPATHOLOGY (07/19/2024 8:14 AM CDT) Case Report Dermatopathology Report Case: [id number] Authorizing Provider: Hannah Roman MD Collected: 07/19/2024 08:14 AM Ordering Location: [facility] - Received: 07/19/2024 12:21 PM DermPath Lab Pathologist: Damari Covarrubias MD Specimen: Skin, right crown 4:25 PM CDT DERMATOPATHOLOGY LABORATORY Final Diagnosis Specimen A. SKIN, right crown: HYPERPLASTIC (HYPERTROPHIC) ACTINIC KERATOSIS, WITH ADNEXAL EXTENSION (L57.0) 4:25 PM CDT DERMATOPATHOLOGY LABORATORY at 1624 CDT Clinical History R/O SCC 4:25 PM CDT DERMATOPATHOLOGY LABORATORY Gross Description Specimen A: Received is one formalin filled container labeled with the patient's name and designated right crown. The specimen consists of a shave biopsy measuring 10x5x1 mm. Jar 0. 4:25 PM CDT DERMATOPATHOLOGY LABORATORY Microscopic Description Specimen A. SKIN, right crown: There is hyperkeratosis alternating with parakeratosis. There is epidermal hyperplasia with disorderly maturation of keratinocytes with nuclear pleomorphism confined to the lower half of the epidermis. Adnexal extension of the lesion is seen. 4:25 PM CDT DERMATOPATHOLOGY LABORATORY Disclaimer An external and internal positive and negative controls are appropriate for the histochemical, immunohistochemical and immunofluorescence stain(s) in this case (if any), except where stated explicitly. The performance characteristics of the stain(s) cited in this report were developed and its performance characteristic determined by the Dermatopathology Laboratory at [facility], directed by Dr. Rashaad Valenzuela. These tests need not be, and therefore are not, approved by the [place] Food and Drug Administration. The tests are used for clinical purposes. Billing Codes Specimen Charges Stain Charges 38324 1 4:25 PM CDT DERMATOPATHOLOGY LABORATORY Embedded Images 4:25 PM CDT DERMATOPATHOLOGY LABORATORY Pathology/Cytolo gy TISSUE SPECIMEN FROM SKIN / Unknown 07/19/2024 8:14 AM CDT 07/19/2024 12:21 PM CDT us Hannah Roman MD LAB - PATHOLOGY/CYTOLOGY ORD ERABLES Final Result DERMATOPATHOLOGY LABORATORY [facility] - Department of Dermatology [address], [address] [phone] documented in this encounter Visit Diagnoses Not on filedocumented in this encounter
--- OUTSIDE RECORDS SUMMARY | 2025-05-08 13:40 | XMS_ITS | Clinical Summary ---
Author Organization [facility] Address [address] [place] [address] Care Team Providers Care Supervisor [employer] Name Role Phone Lino Davenport MD Primary Care Provider + [phone] Madyson Carcamo DPM Unavailable [phone] Jacob Truong MD Unavailable [phone] Pietro Estrada MD Unavailable [phone] Raul Cannon MD Unavailable [phone] Chay Emmanuel MD Unavailable [phone] Humble Huerta MD Unavailable [phone] Tyler Reagan MD Unavailable John Vargas OD Unavailable [phone] Antonietta Morales MD Unavailable [phone] Louis Sevilla MD Unavailable [phone] Karla Gu MD Unavailable Allergies Active Allergy Reactions Criticality Noted Date Comments Gadolinium-Containing Contrast Media Rash Medium 07/11/2024 Iodinated Contrast Media Unknown,Hives Medium 04/26/2019 Iodine Unknown 02/16/2019 Betadine is ok Niacin Rash,Other (See comments),Unknown Medium 11/05/2016 rash,swelling Purple ears Hot face Medications folic acid (FOLVITE) 1 mg tablet Take 1 tablet (1,000 mcg total) by mouth daily 1 019 Active [place] [facility] [place]u-[place] Zo[place] Acti ve lancets 33 gauge [facility] [place] OneTouch Delica Lancets 33 gauge USE TO TEST SUGARS TWICE A DAY Active aspirin 81 mg enteric coated tablet Low Dose Aspirin 81 mg tablet,delayed release Take 1 tablet every day by oral route. 018 Active latanoprost (XALATAN) 0.005 % ophthalmic solution 022 Active Vascepa 1 gram capsule Take 2 capsules (2 g total) by mouth 2 (two) times a day 360 capsule 3 023 Active acetaminophen (TYLENOL) 325 mg tabletIndications: Pain Take 1 tablet (325 mg total) by mouth every 4 (four) hours as needed for pain 023 Active gabapentin (NEURONTIN) 300 mg capsule Take 1 capsule (300 mg total) by mouth 3 (three) times a day 90 capsule 024 Active blood-glucose sensor device Dexcom g7 sample 1 each 024 Active losartan (COZAAR) 50 mg tablet TAKE 1/2 TABLET BY MOUTH DAILY 45 tablet 1 024 Active zolpidem (AMBIEN) 10 mg tabletIndications: Primary insomnia TAKE 1 TABLET BY MOUTH AT BEDTIME NEEDED FOR SLEEP 30 tablet 2 024 Active metoprolol (LOPRESSOR) 100 mg tablet Take 1 tablet (100 mg total) by mouth 2 (two) times a day 024 Active rosuvastatin (CRESTOR) 20 mg tablet Take 1 tablet (20 mg total) by mouth daily 024 Active Repatha SureClick 140 mg/mL pen injector INJECT 1 ML SUBCUTANEOUSLY EVERY 2 WEEKS 024 Active metFORMIN (GLUCOPHAGE) 1,000 mg tabletIndications: Type 2 diabetes mellitus without complication, without long-term current use of insulin (HCC) Take 1 tablet (1,000 mg total) by mouth 2 (two) times a day 180 tablet 1 025 Active fenofibrate nanocrystallized (TRICOR) 145 mg tablet 1 tablet (145 mg total) 025 Active triamcinolone (KENALOG) 0.1 % cream Apply topically Active TRESIBA 200 unit/mL (3 mL) pen for injectionIndicatio ns:Type 2 diabetes mellitus with stable proliferative retinopathy of left eye, with long-term current use of insulin ([facility]) INJECT 0.31 ML (62 UNITS TOTAL) UNDER THE SKIN DAILY 27.9 mL 3 025 02/07 Active Accu-Chek Guide test strips strip USE TO TEST BLOOD SUGAR ONCE DAILY 100 strip 2 Active baclofen (LIORESAL) 10 mg tablet TAKE 1 TABLET BY MOUTH THREE TIMES A DAY 270 tablet 1 Active tamsulosin (FLOMAX) 0.4 mg extended release capsuleIndications :Benign prostatic hyperplasia with lower urinary tract symptoms TAKE 1 CAPSULE BY MOUTH EVERY DAY 100 capsule 1 Active Farxiga 10 mg tabletIndications: Type 2 diabetes mellitus with stable proliferative retinopathy of left eye, with long-term current use of insulin ([facility]) TAKE 1 TABLET (10 MG TOTAL) BY MOUTH EVERY MORNING. 90 tablet 3 025 04/18 Active tirzepatide (MOUNJARO) 5 mg/0.5 mL pen injector injectionIndicatio ns:type 2 diabetes mellitus 5 mg weekly subQ, Hold medication if developing abdominal pain, nausea, vomiting, dyspepsia, bloating, or severely ill; Hold medication during hospital stay; Hold medication for >1 week for planned surgical/medical procedure with anesthesia, to prevent possible complications such as vomiting. 2 mL 1 Active pen needle, diabetic 32 gauge x 1/4 needleIndications: Uncontrolled type 2 diabetes mellitus with hyperglycemia (HCC) Use to inject tresiba once daily 100 each 3 Active ferrous sulfate ER 324 mg (65 mg iron) EC tablet TAKE 1 TABLET BY MOUTH EVERY OTHER DAY 45 tablet Active eszopiclone (LUNESTA) 3 mg tabletIndications: Insomnia TAKE 1 TABLET (3 MG TOTAL) BY MOUTH NIGHTLY TAKE IMMEDIATELY BEFORE BEDTIME 30 tablet Active pen needle, diabetic 32 gauge x 1/4 needle BD Ultra-Fine Micro Pen Needle 32 gauge x 1/4 USE TO INJECT TRESIBA AT BEDTIME 05/04 Discontinued( Reorder) Farxiga 10 mg tabletIndications: Type 2 diabetes mellitus with stable proliferative retinopathy of left eye, with long-term current use of insulin (HCC) Take 1 tablet (10 mg total) by mouth every morning 90 tablet 3 024 04/18 Discontinued ferrous sulfate ER 324 mg (65 mg iron) EC tablet TAKE 1 TABLET BY MOUTH EVERY OTHER DAY 45 tablet 1 025 05/08 Discontinued tirzepatide (MOUNJARO) 5 mg/0.5 mL pen injector injectionIndicatio ns:type 2 diabetes mellitus 5 mg weekly subQ, Hold medication if developing abdominal pain, nausea, vomiting, dyspepsia, bloating, or severely ill; Hold medication during hospital stay; Hold medication for >1 week for planned surgical/medical procedure with anesthesia, to prevent possible complications such as vomiting. 2 mL 3 025 05/01 Discontinued( Reorder) eszopiclone (LUNESTA) 3 mg tabletIndications: Insomnia TAKE 1 TABLET (3 MG TOTAL) BY MOUTH NIGHTLY TAKE IMMEDIATELY BEFORE BEDTIME 30 tablet 1 025 05/08 Discontinued Active Problems Problem Noted Date Diagnosed Date Colon cancer screening 02/16/2025 Chronic midline low back pain without sciatica 0 02/05/2025 Lower GI bleed 07/16/2024 Acute blood loss anemia 07/12/2024 Assessment & Plan (07/25/2024 9:46 AM CDT): From removal of polyp during colonoscopy , admitted for 2 days for gi bleed Hgb down to 9.6 Hgb up to 10.3 Start ferrous gluconate 324 mg q other day Eat iron rich foods Sacroiliac pain 03/08/2024 Assessment & Plan (03/08/2024 9:07 AM CDT): Uncomfortable and causing pain nicole in am or sits too long No recent xrays of the L spine and pelvis Will refer to pain mgt for trigger point inj and eval and tx of LBP PAF (paroxysmal atrial fibrillation) 11/04/2023 Assessment & Plan (12/02/2023 5:34 PM GRAIN INSPECTOR): Continue under the care gmat tutor. Continue on anticoagulation therapy. Stable. High risk medication use 11/04/2023 Aftercare following surgery of the circulatory s ystem 10/20/2023 Hx of CABG 09/19/2023 Overview (03/08/2024): Ascending aortic aneurysm, bicuspid aortic valve with mild aortic stenosis, severe left anterior descending coronary artery stenosis; s/p ascending aortic replacement, coronary artery bypass grafting x 1, and Titanium sternal plating on 09/14/23 Aortic aneurysm without rupture 09/14/2023 Nonrheumatic aortic valve stenosis 08/30/2023 Aneurysm of ascending aorta without rupture 06/2023 Assessment & Plan (12/02/2023 5:33 PM GRAIN INSPECTOR): Resolved with recent surgical repair Vitamin B12 deficiency (non anemic) 07/26/2023 Secondary erythrocytosis 05/14/2023 Overview (05/14/2023): Dr Di crawford managing Phlebotomy started December 23, 2020 Secondary erythrocytosis JAK2 mutation negative. This is secondary to sleep apnea and testosterone replacement therapy. Assessment & Plan (05/14/2023 2:30 PM CDT): Stable Dr Di crawford managing Phlebotomy started December 23, 2020 Secondary erythrocytosis JAK2 mutation negative. This is secondary to sleep apnea and testosterone replacement therapy. Lipoma of abdominal wall 05/14/2023 Assessment & Plan (03/08/2024 9:01 AM CDT): Changing in size Repeat US abd wall for lipomatous growth Assessment & Plan (05/14/2023 2:56 PM CDT): Getting more uncomfortable and painful Unsure if enlarging Imaging and possible bx or excision of the back Start with US of both areas and then might need MRI next Trapezius strain 08/10/2022 Assessment & Plan (08/10/2022 10:00 AM CDT): Worsening Refer to PT Mixed hyperlipidemia 07/13/2022 Male hypogonadism 07/13/2022 Well controlled type 2 diabetes mellitus 022 Pneumonia due to COVID-19 virus 12/16/2021 Abnormal chest x-ray 11/28/2021 Overview (11/28/2021): IMPRESSION: Mild left basilar ground-glass opacity, likely infectious/inflammatory change. Recommend short interval follow-up standard two-view chest radiograph to document resolution. Assessment & Plan (11/28/2021 8:43 AM GRAIN INSPECTOR): IMPRESSION: Mild left basilar ground-glass opacity, likely infectious/inflammatory change. Recommend short interval follow-up standard two-view chest radiograph to document resolution. No hx of covid illness Vaccinated 3 doses completed Repeat cxr in 4 wks to trend If better, do nothing If same, monitor likely repeat cxr in 6 mos could be from old bilat pneumonia yrs ago If worse, high resolution CT chest Discussed plans with Kam Johnson symptoms Decreased vision of left eye 11/28/2021 Overview (11/28/2021): Proliferative Retinopathy, sec to DM Dr Truong is retina specialist Assessment & Plan (11/28/2021 8:51 AM GRAIN INSPECTOR): Proliferative Retinopathy, sec to DM Dr Truong is retina specialist Medial epicondylitis of elbow, right 10/29/2021 Overview (11/28/2021): Dr Troy injected right elbow with cortisone Right lateral epicondylitis 10/29/2021 Right bundle branch block 04/24/2021 Status post colon polypectomy 03/10/2021 Overview (04/30/2021): Dr Jennifer Carcamo, Colonoscopy 02/27/2021, tubular adenoma. Poor prep, repeated 04/24/2021, poor prep, 3 transverse colon polyps removed. Repeat in 3 yrs Assessment & Plan (08/18/2024 9:34 PM CDT): The patient was recently hospitalized in [place] with post polypectomy bleeding after a colonoscopy on 07/04/2024 at [facility]. Pathology results unavailable for review today - I will request these from [facility]. The colonoscopy in [place] revealed an additional 5-6 small 3-6 mm polyps throughout the cecum and ascending colon. Will plan for a repeat colonoscopy within 6 months to 1 year - the patient will reach out to our office when he is ready to schedule in this time frame. Will check a CBC in the meantime. Primary insomnia 01/31/2021 Assessment & Plan (08/15/2024 2:45 PM CDT): The patient will continue with the Ambien. After the patient is near the end of his Ambien prescription he will call in for a change in sleep aid. The patient was advised to try cognitive behavioral therapy for insomnia. Assessment & Plan (05/15/2024 3:57 PM CDT): Due to continued symptoms, the patient will continue cognitive behavior therapy. The patient will also continue Ambien 10 mg nightly and alternating with Tylenol PM. He denied need for medication refill at this time Assessment & Plan (05/10/2023 3:22 PM CDT): The problem of recurrent insomnia is discussed. Avoidance of caffeine sources is strongly encouraged. Sleep restriction and Sleep hygiene issues are reviewed.The patient and I also discussed the gold standard of insomnia is cognitive behavior therapy. I have also provided the patient with 2 pamphlets in regards to sleeping better insomnia as written by the [place] [employer]. I encouraged the patient to keep a journal and to get out of bed if mind is racing and unable to get back to sleep. The patient and I also discussed the decrease of lighting in the evening hours and turning off electronic devices. The use of sedative hypnotics for temporary relief is appropriate; we discussed the addictive nature of these drugs. Cognitive behavior therapy was reviewed in depth. The patient will continue with Ambien 10 mg nightly. I have offered to prescribe the patient Ambien extended release, however, the patient would like to try cognitive behavior therapy. Assessment & Plan (04/06/2022 11:33 AM CDT): The problem of recurrent insomnia is discussed. The patient and I discussed practicing cognitive behavior therapy. I have instructed the patient the gold standard of treating insomnia is cognitive behavior therapy. The patient was provided 2 pamphlets in regards to sleeping better and insomnia. Avoidance of caffeine sources is strongly encouraged. Sleep restriction and Sleep hygiene issues are reviewed. The use of sedative hypnotics for temporary relief is appropriate; we discussed the addictive nature of these drugs. I have reordered the Ambien 10 mg p.o. at bedtime. The patient was instructed that if he takes Ambien he must wear his CPAP at night. Assessment & Plan (02/02/2022 12:49 PM CDT): I did give the patient a trial of Ambien 10 mg to take at night to help initiate and maintain sleep. The patient was informed that he must wear his CPAP if taking the Ambien. The patient verbalized understanding. Assessment & Plan (01/31/2021 10:44 AM CDT): I did inform the patient that he can try melatonin up to 10 mg [id number]. I also gave the patient information published by the Academy of [employer]. Annual physical exam 11/09/2019 Assessment & Plan (07/25/2024 9:34 AM CDT): Reviewed previous labs and diagnostic test results. Chronic medical problems evaluated and management plans discussed with the patient. Prescription medications, supplements, vitamins and immunizations reviewed. Wear seatbelts. Use sunscreen. Discussed healthy diet and disease prevention. Recommend moving towards a plant based diet. Discussed importance of scheduling recommended screening tests. Discussed importance of regular physical examinations for health maintenance. Assessment & Plan (05/14/2023 2:32 PM CDT): Reviewed previous labs and diagnostic test results. Chronic medical problems evaluated and management plans discussed with the patient. Prescription medications, supplements, vitamins and immunizations reviewed. Wear seatbelts. Use sunscreen. Discussed healthy diet and disease prevention. Recommend moving towards a plant based diet. Discussed importance of scheduling recommended screening tests. Discussed importance of regular physical examinations for health maintenance. Assessment & Plan (11/27/2021 3:25 PM GRAIN INSPECTOR): shingrix vaccination series recommended Flu vax if not already done Dilated eye exam due, need report if done psa screening due Reviewed previous labs and diagnostic test results. Chronic medical problems evaluated and management plans discussed with the patient. Prescription medications, supplements, vitamins and immunizations reviewed. Wear seatbelts. Use sunscreen. Discussed healthy diet and disease prevention. Recommend moving towards a plant based diet. Discussed importance of scheduling recommended screening tests. Discussed importance of regular physical examinations for health maintenance. Discussed importance of a living will, advanced directives and establishing or updating healthcare power of document review attorney document and providing our office with a copy. Assessment & Plan (11/12/2020 8:15 AM GRAIN INSPECTOR): Wear sunscreen with SPF over 50 while outdoors. Wear sun protective head wear and clothing if planning to stay outdoors exposed to the direct sunlight for extended hours. Wear seatbelts while in a vehicle. Do not TEXT and DRIVE Do not DRINK and DRIVE. Drink responsibly Follow a heart healthy diet and lifestyle. Consume 5-7 servings of fruits and vegetables a day.. Such as the Mediterranean Diet. Maintain/attain normal body weight. Exercise regularly, minimum 20 mins 3 days a week to reduce cardiovascular healthy. Maintain good sleep schedule and sleep habits I recommend that all patients follow a diet that is high in fruits and vegetables and low in processed foods such as sugar and foods that are made with white flour. I recommend using beneficial fats such as olive oil, nuts, seeds and berries and avoiding saturated animal fats. Please stay physically active to the extent that you are physically able to. Test results: if you have not received communication about test results within 7 days of the test being performed, please contact the office. Assessment & Plan (11/09/2019 10:02 AM GRAIN INSPECTOR): Wear sunscreen while outdoors. Wear seatbelts while in a vehicle. Do not text and drive. Follow a heart healthy diet and lifestyle. Consume 5-7 servings of fruits and vegetables a day. Maintain/attain normal body weight. Maintain good sleep schedule and sleep habits. I recommend that all patients follow a diet that is high in fruits and vegetables and low in processed foods such as sugar and foods that are made with white flour. I recommend using beneficial fats such as olive oil, nuts, seeds and berries and avoiding saturated animal fats. Please stay physically active to the extent that you are able. Test results: if you have not received communication about test results within 7 days of the test being performed, please contact the office. Consider getting Shingrix (shingles vaccine). This is a 2-shot series with each injection given 2-6 months apart. You can obtain the vaccine at most major pharmacies without a prescription Mediterranean diet recommended Class 2 severe obesity due t o excess calories with serious comorbidity and body mass index (BMI) of 39.0 to 39.9 in adult 11/09/2019 Overview (11/27/2021): Last Assessment & Plan: Work on attempts to lose weight about 1 lb a week. Join a wt loss program if necessary. Try to reach for BMI under 30. Exercise regularly, Limit carbs and sugars. Control portion intake. Consume 6-8 8oz glasses of water daily. BMI Follow-up includes: nutrition counseling, exercise counseling and education provided. Assessment & Plan (07/25/2024 9:41 AM CDT): Cont to work on wt loss Cont to walk more regularly Assessment & Plan (03/08/2024 8:49 AM CDT): Working on wt loss Cont to walk more regularly Assessment & Plan (12/02/2023 8:54 AM GRAIN INSPECTOR): Cont wt loss attempts Cont to exercise regularly Heart healthy diet Assessment & Plan (05/14/2023 2:25 PM CDT): Work on attempts to lose weight about 1 lb a week. Join a wt loss program if necessary. Try to reach for BMI under 30. Exercise regularly, Limit carbs and sugars. Control portion intake. Consume 6-8 8oz glasses of water daily. BMI Follow-up includes: nutrition counseling, exercise counseling and education provided. Assessment & Plan (08/10/2022 9:59 AM CDT): Work on wt loss exercise Assessment & Plan (11/27/2021 3:19 PM GRAIN INSPECTOR): Work on serious permanent wt loss attempts Candidate for gastric sleeve surgery, discussed Assessment & Plan (11/12/2020 8:19 AM GRAIN INSPECTOR): Work on attempts to lose weight about 1 lb a week. Join a wt loss program if necessary. Try to reach for BMI under 30. Exercise regularly, Limit carbs and sugars. Control portion intake. Consume 6-8 8oz glasses of water daily. BMI Follow-up includes: nutrition counseling, exercise counseling and education provided. Assessment & Plan (11/09/2019 9:59 AM GRAIN INSPECTOR): Work on attempts to lose weight about 1 lb a week. Join a wt loss program if necessary. Try to reach for BMI under 30. Exercise regularly, Limit carbs and sugars. Control portion intake. Consume 6-8 8oz glasses of water daily. BMI Follow-up includes: nutrition counseling, exercise counseling and education provided. Dyslipidemia 04/30/2019 Overview (11/12/2020): Dr Villarreal managing Essential hypertension 04/30/2019 Assessment & Plan (03/08/2024 9:05 AM CDT): Follow low sodium DASH Diet. Exercise regularly for CV health and weight loss. Achieve or Maintain normal BMI/Weight. Continue Rx medication. BP is controlled and stable. Assessment & Plan (12/02/2023 5:32 PM GRAIN INSPECTOR): Follow low sodium DASH Diet. Exercise regularly for CV health and weight loss. Achieve or Maintain normal BMI/Weight. Continue Rx medication. BP is controlled and stable. Assessment & Plan (05/14/2023 2:25 PM CDT): Follow low sodium DASH Diet. Exercise regularly for CV health and weight loss. Achieve or Maintain normal BMI/Weight. Take medications as prescribed. Report if having problems with the medication or if develops Chest pains. Monitor BP occly and record. Report if BP consistently over 160/90 or under 90/60 and dizzy and LH. Continue Rx medication. BP is controlled and stable. Assessment & Plan (08/10/2022 9:58 AM CDT): bp controlled Cont same regimen Lose wt Assessment & Plan (11/27/2021 3:20 PM GRAIN INSPECTOR): bp controlled Low sodium diet Reg exercise, make it regular at least 4 d a week for 30 mins Wt loss Assessment & Plan (11/12/2020 8:25 AM GRAIN INSPECTOR): bp controlled Type 2 diabetes mellitus wit h ophthalmic complication, with long-term current use of insulin 04/30/2019 Overview (03/08/2024): Dr esdras Pires managing Dr Truong retina specialist. Decreased vision left eye, retinopathy >>OVERVIEW FOR CONTROLLED TYPE 2 DIABETES MELLITUS WITH RETINOPATHY, WITH LONG- TERM CURRENT USE OF INSULIN (HCC) WRITTEN ON 11/27/2021 3:28 PM BY LINO DAVENPORT MD Managed by Dr Pires On Tresiba therapy Assessment & Plan (03/08/2024 9:04 AM CDT): Seeing endo soon at [facility] Will see what they recommend re med changes A1c is 6.4 cont the same regimen for now Assessment & Plan (12/02/2023 8:52 AM GRAIN INSPECTOR): Improving Cont to exercise A1c 6 Lower amaryl to 1 mg ( BS low and to avoid Hypoglycemia) Inc rybelsus to 14 mg, plan is to get off amaryl Plan is to reduce insulin over time, come off sulfonylurea and get on GLP 1 injections once availably of supply is feasible Wednesday gets inj to retina Assessment & Plan (03/08/2024 8:42 AM CDT): >>ASSESSMENT AND PLAN FOR TYPE 2 DIABETES MELLITUS WITH OPHTHALMIC COMPLICATION, WITH LONG-TERM CURRENT USE OF INSULIN (HCC) WRITTEN ON 11/28/2021 8:44 AM BY LINO DAVENPORT MD Cont under dr Pires for diabetic care Cont under Dr Truong for retinal care and monitoring Ff diabetic diet Wt loss and exercise as discussed Good glycemic control No sugar or high carbs in diet >>ASSESSMENT AND PLAN FOR CONTROLLED TYPE 2 DIABETES MELLITUS WITH RETINOPATHY, WITH LONG-TERM CURRENT USE OF INSULIN (HCC) WRITTEN ON 11/27/2021 3:28 PM BY LINO DAVENPORT MD Managed by Dr Pires On tresiba therapy Get yrly dilated eye exams Assessment & Plan (04/30/2019 9:46 PM CDT): Follow a diabetic diet, especially no sugar in the diet Work on wt loss if body mass not at goal Start to exercise on a regular basis at least 3 days a week once boot comes off foot Routine diabetic foot care recommended with a mill worker Inspect feet on a regular basis report immediately if there are any open sores or signs of infection Monitor blood sugars as discussed. Fasting blood sugars should be less than 120 and two-hour post meal blood sugars should be less than 180. Repeat and record blood sugars and bring readings to office visits. Controlled on current regimen. Continue under care of turbine engineer Dr Pires Weight disorder 04/30/2019 Assessment & Plan (04/30/2019 10:00 PM CDT): Morbid obesity = body mass index above 40, Pt is almost MORBID Today his BMI =Body mass index is 39.47 kg/m . I recommend 30 minutes of challenging exercise daily to your heart rate goal. Once boot comes off, he needs to start seriously exercising. In meantime since it is summer and he has access to a pool, he needs to do water exercises and swim. He needs to eat out much less and prep meals more often. is diabetic, the 2 should get more serious about their health. Their children are no longer living at home and are independent. Any alcohol needs to be reduced, slows metabolism. A great deal of time at the was spent counseling the patient about diet, lifestyle and risk for complications given his co-morbidities. His meds were reviewed and none cause or can be blamed for weight gain. I recommend initiating the Whole 30 diet-- He has looked into it in the past, but never started it despite my previous counseling. Consider going on this Whole 30 diet program. The book that discusses the diet in informative and a useful read. This diet eliminates: Alcohol, Sugar, Gluten, Legumes, Peanuts & Peanut butter, Soy, Dairy, processed foods and preservatives. After one month on these restrictions try to resume the food group you miss the most and observe how It effects you over 2-3 weeks before introducing foods from any other new group. I advise moving towards the Mediterranian diet as your ultimate diet routine, anti-inflammatory and compatible with his diabetes. Splenic artery aneurysm (CMS/HCC) 06/21/2018 Overview (11/27/2021): 1.[address] Angiogram Overview: 1.[address] Angiogram ED (erectile dysfunction) of organic origin 03/26 Overview (11/27/2021): Diabetes, Low T Diabetes, Low T Last Assessment & Plan: Continue under care of Dr Pires, she seems to be managing this well and giving him instructions on Testosterone injections. Stable at this time. Labs reviewed and discussed with patient. Assessment & Plan (04/30/2019 9:47 PM CDT): Continue under care of Dr Pires, she seems to be managing this well and giving him instructions on Testosterone injections. Stable at this time. Labs reviewed and discussed with patient. Thoracic aortic ectasia 04/20/2018 PVC (premature ventricular contraction) 10/27/19 17 Coronary artery disease invo lving [place] heart without angina pectoris 10/22/2016 Overview (09/19/2023): Ascending aortic aneurysm, bicuspid aortic valve with mild aortic stenosis, severe left anterior descending coronary artery stenosis; s/p ascending aortic replacement, coronary artery bypass grafting x 1, and sternal plating on 09/14/23 Assessment & Plan (11/28/2021 8:49 AM GRAIN INSPECTOR): 15 % blockage of coronary artery on cardiac cath dont think recent ER visit with r sided cp is cardiac. Patient has musculoskeletal pain and pain in the shoulder upper back area Stretching and exercises of the upper back and shoulders recommended Patient to ff up with Dr East soon, may need update on stress testing MARY on CPAP 08/27/2016 Overview (11/12/2020): On CPAP, Dr Estrada Assessment & Plan (08/15/2024 2:45 PM CDT): Patient will continue to wear CPAP at 14 cm water pressure while sleeping. His DME is [facility]. Assessment & Plan (05/15/2024 3:58 PM CDT): Due to the current CPAP machine malfunctioning, I have ordered the patient a new CPAP machine set at 14 cm water pressure with heated humidity and a full set of supplies. I ordered a ResMed machine. The patient and I discussed the possible need to recertify for CPAP therapy with a PSG if required by insurance. The patient states he would be willing to complete an in-home nocturnal polysomnogram if required. The patient will prefer not to do an in-lab study. DME adapt Assessment & Plan (12/02/2023 5:32 PM GRAIN INSPECTOR): Work on compliance with CPAP Ff up with Dr Estrada Assessment & Plan (05/10/2023 3:21 PM CDT): The patient will continue CPAP at 14 cm water pressure. Denied need for supplies. DME adapt Assessment & Plan (04/06/2022 11:32 AM CDT): Patient will continue with CPAP therapy at 14 cm water pressure. Patient denied need for supplies. DME company [employer]. The patient and I discussed the recall in depth. Patient was educated on the need to examine CPAP machine prior to use for debris. Patient was also provided information in regards to the recall. Assessment & Plan (02/02/2022 12:48 PM CDT): Patient continue to wear CPAP at 14 cm water pressure while sleeping. His DME is [facility]. Assessment & Plan (11/27/2021 3:19 PM GRAIN INSPECTOR): Work on compliance with CPAP Ff up with Dr Estrada in January as planned Assessment & Plan (01/31/2021 10:43 AM CDT): Patient continue to wear his CPAP at 14 cm water pressure while sleeping. His DME is [facility]. Assessment & Plan (11/12/2020 8:26 AM GRAIN INSPECTOR): Work on compliance with CPAP Ff up with Dr Estrada in January as planned Pure hypertriglyceridemia 06/10/2016 Overview (11/27/2021): Managed by dr East on fenofibrate 160 mg daily. Managed by dr East on fenofibrate 160 mg daily. Last Assessment & Plan: Ff low chol diet, cont meds. Eat out less Stop cheese intake Assessment & Plan (11/28/2021 8:46 AM GRAIN INSPECTOR): Now on lopid 600 mg bid and vascepa Improve diet No sugars in diet, no pastas, flour, breads Change cooking oils to avocado, olive oil instead Eat more fish in diet At risk for stroke and pancreatitis Patient does not drink etoh Assessment & Plan (04/26/2019 4:32 PM CDT): Ff low chol diet, cont meds. Eat out less Stop cheese intake Bicuspid aortic valve 05/27/2016 Overview (11/27/2021): Aortic Valve Insuf Aortic Valve Insuf Resolved Problems Problem Noted Date Diagnosed Date Resolved Date Right upper quadrant abdominal pain 08/10/2022 05/14/2023 Assessment & Plan (08/10/2022 9:56 AM CDT): Probably has a spigelian hernia CT abdomen c contrast Encounters Date Type Department Care Team Description 04/16/2025 Orders Only [facility] Information Management [address] [place] [id number] Scanning, Provider 03/28/2025 3:05 PM CDT Lab [facility] [address] [place] [address] 03/28/2025 Telephone [facility] Primary Care [address] [facility] [address] [place] [address] Lino Davenport MD 03/07/2025 9:02 AM CDT - 03/07/2025 11:59 PM CDT Hospital Encounter [facility] Pain [facility]mt [address] [facility] [address] [place] [address] Karla Gu MD Pain of lumbar facet joint (Primary Dx); Facet arthropathy, lumbar Discharge Disposition: Discharge to home or self care 03/04/2025 Results Follow-Up [facility] Gastroenterology at [place] [address] [facility] [address] [place] [address] Konrad Jj MD Surgical pathology 02/21/2025 9:02 AM CDT - 02/21/2025 11:59 PM CDT Hospital Encounter [facility] Pain Mgmt [address] [address] Karla Gu MD Pain of lumbar facet joint (Primary Dx); Facet arthropathy, lumbar Discharge Disposition: Discharge to home or self care 02/16/2025 1:42 PM CDT Anesthesia Event [facility] [address] [place] [address] Asiya Quarles MD Stein, Robert Joseph, [facility] 02/16/2025 1:30 PM CDT - 02/16/2025 2:00 PM CDT Surgery [facility] [address] [place] [id number] Konrad Jj MD COLON REMOVAL SNARE 02/16/2025 12:30 PM CDT - 02/16/2025 3:30 PM CDT Hospital Encounter [facility] [address] [place] [address] Konrad Jj MD Status post colon polypectomy Discharge Disposition: Discharge to home or self care 02/13/2025 2:08 PM CDT - 02/13/2025 11:59 PM CDT Hospital Encounter [facility] Pain [facility] [address] [id number] Karla Gu MD Facet arthropathy, lumbar (Primary Dx); Pain of lumbar facet joint; Facet arthropathy, thoracic Discharge Disposition: Discharge to home or self care from Last 3 Months Immunizations Immunization Administration Dates Next Due Influenza, Quadrivalent, Spl it, Preservative Free, Intramuscular 10/12/2023,11/28/2021,08/29/2020,11/09 Influenza, Trivalent, High D ose, Split, Preservative Free, Intramuscular 07/25/2024 Influenza, Trivalent, IM (MDV) 08/26/2016,2011,08/22/2012 Influenza, Unspecified 07/23/2022,2015,10/02/2012,08/22 Pfizer SARS-CoV-2 Monovalent Vaccination (12+ Yrs) FAULKNER-READY TO USE 04/06/2022 Pfizer SARS-CoV-2 Monovalent Vaccination (12+ Yrs) PURPLE 07/07/2022 Pfizer Sars-Cov-2 Bivalent V accination (12+ YRS) 07/06/2022 Pneumococcal Conjugate Pcv20 08/10/2022 ZOSTER Recombinant 11/23/2022,08/24/2022 Surgical History Surgery Date Site/Laterality Comments ROTATOR CUFF REPAIR COLONOSCOPY CARDIAC CATHETERIZATION CYSTOSCOPY PROSTATE W/ LASER 05/2021 [place] CORONARY ARTERY BYPASS GRAFT 09/14/2023 Ascending aortic aneurysm, bicuspid aortic valve with mild aortic stenosis, severe left anterior descending coronary artery stenosis; s/p ascending aortic replacement, coronary artery bypass grafting x 1, and sternal plating on 09/14/23 ARTERIAL ANEURYSM REPAIR 09/14/2023 Asc Aorta Repl. CABGx1, Sternal Plating LIPOMA RESECTION 07/25/2024 from abd POLYPECTOMY Medical History Medical History Date Comments DM2 (diabetes mellitus, type 2) (HCC) Dyslipidemia Rosacea Lumbar facet arthropathy Bicuspid aortic valve Aortic valve insufficiency Dilated aortic root Hypertension DDD (degenerative disc disease), cervical Arthropathy of cervical facet joint Foraminal stenosis of cervical region Spondylolisthesis, cervical region Hyperlipidemia Obesity Family History Medical History Relation Name Comments Cancer Father Danica Quarles Alzheimer's disease Mother Acacia Quarles Diabetes Mother Acacia Quarles Cancer Sister 1 Jenniffer Mcintosh Lung cancer Sister 1 Jenniffer Mcintosh Diabetes Sister 2 Acacia Jeannette Malagon Relation Name Status Comments Father Danica Quarles Mother Acacia Quarles Sister 1 Jenniffer Mcintosh Sister 2 Acacia Malagon Social History Tobacco Use Types Packs/Day Years Used Date Smoking Tobacco: Never Smokeless Tobacco: Never Tobacco Cessation:Counseling Given: Not Answered Alcohol Use Standard Drinks/Week Comments Not Currently 0 (1 standard drink = 0.6 oz pur e alcohol) very rare OASIS D0700: Social Isolation Answer Da te Recorded Frequency of experiencing loneliness or isolatio n Never 10/07/2023 OASIS A1250: Transportation Answer Date Recorded Lack of Transportation (Medical) No 10/07/2023 Lack of Transportation (Non-Medical) No 10/07/2023 Patient Unable or Declines to Respond No 10/07/2023 OASIS B1300: Health Literacy Answer Ramesh e Recorded Frequency of needing help to read materials from doctor or pharmacy Never 10/07/2023 [facility] Utilities Answer Date Recorded In the past 12 months has th e [employer], gas, oil, or water company threatened to shut off services in your home? No 09/17/2023 Social Connection and Isolation Panel [NHANES] A nswer Date Recorded In a typical week, how many times do you talk on the phone with family, friends, or neighbors? Three times a week 09/17/20 How often do you get togethe r with friends or relatives? Three times a week 09/17/2023 How often do you attend chur ch or jehovah's witness services? 1 to 4 times per year 09/17/2023 Do you belong to any clubs o r organizations such as yarsani groups, unions, fraternal or athletic groups, or school groups? Yes 09/17/2023 How often do you attend meet ings of the clubs or organizations you belong to? 1 to 4 times per year 09/17/2023 Are you , , di vorced, , never , or living with a partner? 09/17/2023 AUDIT-C Answer Date Recorded Q1: How often do you have a drink containing alc ohol? Monthly or less 02/16/2025 Q2: How many drinks containi ng alcohol do you have on a typical day when you are drinking? 1 or 2 02/16/2025 Q3: How often do you have si x or more drinks on one occasion? Never 02/16/2025 Overall Financial Resource Strain (CARDIA) Answe r Date Recorded How hard is it for you to pa y for the very basics like food, housing, medical care, and heating? Not very hard 09/17/2023 PHQ-2 Answer Date Recorded PHQ-2 Total Score (If total score is 3 or more points, staff should administer the PHQ-9) 0 02/05/2025 Hunger Vital Sign Answer Date Recorded Within the past 12 months, y ou worried that your food would run out before you got the money to buy more. Never true 09/17/20 23 Within the past 12 months, t he food you bought just didn't last and you didn't have money to get more. Never true 09/17/2023 PRAPARE - Transportation Answer Date Re corded In the past 12 months, has l ack of transportation kept you from medical appointments or from getting medications? No 08/26 In the past 12 months, has l ack of transportation kept you from meetings, work, or from getting things needed for daily living? No 09/17/2023 Housing Stability Vital Sign Answer Ramesh e Recorded In the last 12 months, was t here a time when you were not able to pay the mortgage or rent on time? No 09/17/2023 In the last 12 months, how many places have you lived? 1 09/17/2023 In the last 12 months, was t here a time when you did not have a steady place to sleep or slept in a custodial (including now)? No 09/17/2023 PHQ-9 Answer Date Recorded PHQ-9 Total Score 4 07/25/2024 Personal Safety Answer Date Recorded Have you ever been in or are you currently in a harmful physical or emotional relationship or is someone making you feel afraid or unsafe? Denies 02/16/2025 Sex and Gender Information Value Date Recorded Sex Assigned at Not on file Legal Sex Male 7:57 PM GRAIN INSPECTOR Gender Identity Male 10/09/2021 7:46 AM GRAIN INSPECTOR Sexual Orientation Straight 10/09/2021 7: 46 AM GRAIN INSPECTOR Obstetrics History Last Filed Vital Signs Vital Sign Reading Time Taken Comments Blood Pressure 122/67 03/07/2025 10:12 AM CDT Pulse 85 03/07/2025 10:12 AM CDT Temperature 36.2 C (97.2 F) 03/07/2025 9:19 AM CDT Respiratory Rate 18 03/07/2025 9:19 AM CDT Oxygen Saturation 94% 03/07/2025 10:12 AM CDT Inhaled Oxygen Concentration - - Weight 122.5 kg (270 lb) 02/16/2025 1:00 PM CDT Height 180.3 cm (5' 11) 02/13/2025 2:17 PM CDT Body Mass Index 37.66 02/13/2025 2:17 PM CDT Plan of Treatment Health Maintenance Due Date Last Done Comments Hepatitis B Screening 1978 Covid-19 Vaccine (2023- 5 season) 2024 10/12/2023, 07/07/2022, 07/06/2022, Additional history exists Albumin Creatinine Ratio, Urine 03/01/2025 03/01/2024, 11/26/2023, 07/05/2023, Additional history exists Influenza Vaccine (#1) 2025 , 10/12/2023, 07/23/2022, Additional history exists Foot Exam 07/25/2025 07/25/2024, 10/2023, 05/14/2023, Additional history exists Well Visit 65+ 07/25/2025 07/25/2024, 04/25, 11/28/2021, Additional history exists Hemoglobin A1C 08/07/2025 02/05/2025, 0 06/2025, 07/18/2024, Additional history exists Prostate Cancer Screening-PSA 11/26/2025 11/26/2023, 06/08/2022 Lipid Panel 01/29/2026 01/29/2025, 020 01/2025, 07/18/2024, Additional history exists Depression Screening 02/05/2026 02/05/2025, 07/25/2024, 07/25/2024, Additional history exists Fall Risk Assessment 02/05/2026 02/05/2025, 12/02/2023, 09/20/2023, Additional history exists Dilated Eye Exam 03/28/2026 03/28/2025, , 02/07/2024, Additional history exists eGFR 03/28/2026 03/28/2025, 04/0 04/2025, 11/28/2024, Additional history exists Colon Cancer Screening-Colonoscopy 02/16/2030 02/16/2025, 07/04/2024, 04/24/2021, Additional history exists Hepatitis C Screening Completed 03/26/2020, 020 Pneumococcal vaccine 65+ Completed 08/10/2022 Zoster Vaccine Completed 11/23/2022, 08/24/2022 Colon Cancer Screening-CT Colonography Discontinued 02/16/2025, 07/04/2024, 04/24/2021, Additional history exists Colon Cancer Screening-DNA Stool Discontinued 02/16/2025, 07/04/2024, 04/24/2021, Additional history exists Colon Cancer Screening-FIT Discontinued 02/16, 07/04/2024, 04/24/2021, Additional history exists Colon Cancer Screening-Sigmoidoscopy Discontinued 02/16/2025, 07/04/2024, 04/24/2021, Additional history exists DTaP/Tdap/Td Vaccine Discontinued Medical Devices Implanted Type Area Soft Crab Shedder Device Identifier Shelf Expiration Date Model / Serial / Lot Abyrx Hemasorb Os-Spa Sp[place] Wax 2gm Bone Sterile Os-201 - [id number] Implanted:Qty: 1 on 09/14/2023 by Antonietta Morales MD at [facility] Other - see comments N/A: Sternum Abyrx 03/24/2026 OS- [employer] Plate Bone Low Profile 6 Hole H Shape Sternum Ti 115.102.06 - [id number] Implanted:Qty: 2 on 09/14/2023 by Antonietta Morales MD at [facility] Other - see comments N/A: Sternum [employer] 115.102. 06 / / [employer] Plate Bone Low Profile 6 Hole O Shape Sternum Ti 115.104.06 - [id number] Implanted:Qty: 1 on 09/14/2023 by Antonietta Morales MD at [facility] Other - see comments N/A: Sternum [employer] 115.104. 06 / / [employer] Screw Bone Slf Drl Full Thread Locking 3.5x18mm Ti 100.035.18 - [id number] Implanted:Qty: 12 on 09/14/2023 by Antonietta Morales MD at [facility] Other - see comments N/A: Sternum [employer] 100.035. 18 / / [employer] Screw Bone Slf Drl Full Thread Locking 3.5x16mm Ti 100.035.16 - [id number] Implanted:Qty: 10 on 09/14/2023 by Antonietta Morales MD at [facility] Other - see comments N/A: Sternum [employer] 100.035. 16 / / [employer] Plate Bone Low Profile 4 Hole Box Sternum Ti 115.103.04 - [id number] Implanted:Qty: 1 on 09/14/2023 by Antonietta Morales MD at [facility] Other - see comments N/A: Sternum [employer] 115.103. 04 / / [employer] Gelweave 30mm 30cm Suture Retention Unique Hydrolyzable Abdomen [id number] - S20... - [id number] Implanted:Qty: 1 on 09/14/2023 by Antonietta Morales MD at [facility] N/A: Asending Aorta [employer] 04/23/2026 [id number] / 20... / [id number] Procedures Procedure Name Priority Date/Time Associated Diagnosis Comments CARDIOLOGY DOCUMENT SCAN 04/16/2025 EGFR Routine 03/28/2025 3:24 PM CDT DIFFERENTIAL AUTO Routine 03/28/2025 3:2 4 PM CDT CBC WITH AUTO DIFFERENTIAL Routine 03/28/2025 3:24 PM CDT COMPREHENSIVE METABOLIC PANEL Routine 03/28/2025 3:24 PM CDT HM DIABETES EYE EXAM Routine 03/28/2025 11:46 AM CDT PAIN MGMT IMAGING LUMBAR/SACRAL FACET/ MEDIAL BRANCH BLOCK BILATERAL Schedule Routine, Read Routine (OP Routine) 03/07/2025 9:50 AM CDT Facet arthropathy, lumbar POCT GLUCOSE DEVICE Routine 03/07/2025 9 :09 AM CDT PAIN MGMT IMAGING LUMBAR/SACRAL FACET/ MEDIAL BRANCH BLOCK BILATERAL Schedule Routine, Read Routine (OP Routine) 02/21/2025 9:57 AM CDT Facet arthropathy, lumbar POCT GLUCOSE DEVICE Routine 02/21/2025 9 :15 AM CDT SURGICAL PATHOLOGY Routine 02/16/2025 1: 55 PM CDT Status post colon polypectomy COLON REMOVAL SNARE 02/16/2025 1 :44 PM CDT Status post colon polypectomy COLONOSCOPY 02/16/2025 1:40 PM CDT POCT GLUCOSE DEVICE Routine 02/16/2025 1 :11 PM CDT POCT HEMOGLOBIN A1C Routine 02/05/2025 8 :47 AM CDT Type 2 diabetes mellitus with stable proliferative retinopathy of left eye, with long-term current use of insulin (HCC) LIPID PANEL Routine 01/29/2025 7:26 AM CDT ALBUMIN CREATININE RATIO, URINE Routine 03/01/2024 7:49 AM CDT Essential hypertension PSA SCREEN Routine 11/26/2023 7:27 AM GRAIN INSPECTOR Benign prostatic hyperplasia with lower urinary tract symptoms, symptom details unspecified Essential hypertension Hypertriglyceridemi a Mixed hyperlipidemia Type 2 diabetes mellitus with stable proliferative retinopathy of left eye, with long-term current use of insulin (HCC) HEPATITIS C ANTIBODY Routine 03/26/2020 8:44 AM CDT Encounter for hepatitis C screening test for low risk patient HM DIABETES FOOT EXAM Routine 05/09/2019 from Last 3 Months or Most Recently Relevant to Health Maintenance Results * Cardiology Document Scan (04/16/2025) Anatomical Region Laterality Modality Other us Provider Scanning CV CARDIAC SERVICES PROCEDURES Final Result * eGFR (03/28/2025 3:24 PM CDT) eGFR 74 >=60 mL/min/1. 73 m2 Comment: Interpretive Data Reference Interval Normal >/= 90 mL/min/1.73m2 Mildly decreased* 60 - 89 mL/min/1.73m2 Mildly to moderately decreased 45 - 59 mL/min/1.73m2 Moderately to severely decreased 30 - 44 mL/min/1.73m2 Severely decreased 15 - 29 mL/min/1.73m2 Kidney Failure < 15 mL/min/1.73m2 *Relative to young adult level Estimated glomerular filtration rate is determined by the 2020 CKD-EPI equation recommended by the National Kidney Foundation (A Unifying Approach to GFR Estimation: Recommendations of the NKF-ASK Task Force on Reassessing the Inclusion of Race in Diagnosing Kidney Disease, JASN 2020). The CKD-EPI equation should not be used for patients with unstable renal function and has not been validated in children and those over 70. Current interpretive data was last reviewed 2021. Testing performed by: [address] [address] Blood 03/28/2025 3:24 PM CDT 03/28/2025 3:42 PM CDT us Tyler Reagan MD LAB BLOOD ORDERABLES Final Resul t [facility] [address] [facility] [place] [address] * Differential, auto (03/28/2025 3:24 PM CDT) Neutrophil abs 4.13 1.50 - 6.50 K/cumm Comment:Testing performed by : [address] [address] Imm gran abs 0.02 0.00 - 0.10 K/cumm [facility] Comment:Testing performed by : [address], [place]., [address] Lymphocyte abs 1.90 0.80 - 3.30 K/cumm [facility] Comment:Testing performed by : [address] [address] Monocyte abs 0.66 0.20 - 0.80 K/cumm [facility] Comment:Testing performed by : [address], [place]., [address] Eosinophil abs 0.25 0.00 - 0.50 K/cumm [facility] Comment:Testing performed by : [address], [place]., [address] Basophil abs 0.06 0.00 - 0.10 K/cumm [facility] Comment:Testing performed by : [address] [address] Neutrophil pct 58.7 % [facility] Comment: Interpretive Data Percent cell count reference ranges are not reported, since discordance with absolute values may lead to misinterpretation of CBC data. Current Interpretive Data was last revised on 2018. Testing performed by: [address] [address] Imm gran pct 0.3 % [facility] Comment: Interpretive Data Percent cell count reference ranges are not reported, since discordance with absolute values may lead to misinterpretation of CBC data. Current Interpretive Data was last revised on 2018. Testing performed by: [address] [address] Lymphocyte pct 27.1 % [facility] Comment: Interpretive Data Percent cell count reference ranges are not reported, since discordance with absolute values may lead to misinterpretation of CBC data. Current Interpretive Data was last revised on 2018. Testing performed by: [address] [address] Monocyte pct 9.4 % [facility] Comment: Interpretive Data Percent cell count reference ranges are not reported, since discordance with absolute values may lead to misinterpretation of CBC data. Current Interpretive Data was last revised on 2018. Testing performed by: [address] [address] Eosinophil pct 3.6 % [facility] Comment: Interpretive Data Percent cell count reference ranges are not reported, since discordance with absolute values may lead to misinterpretation of CBC data. Current Interpretive Data was last revised on 2018. Testing performed by: [address] [address] Basophil pct 0.9 % [facility] Comment: Interpretive Data Percent cell count reference ranges are not reported, since discordance with absolute values may lead to misinterpretation of CBC data. Current Interpretive Data was last revised on 2018. Testing performed by: [address] [address] Blood 03/28/2025 3:24 PM CDT 03/28/2025 3:24 PM CDT us Tyler Reagan MD LAB BLOOD ORDERABLES Final Resul t [facility] Department [place] [address] * (ABNORMAL) CBC with auto differential (03/28/2025 3:24 PM CDT) WBC 7.02 3.80 - 9.90 K/cumm Comment:Testing performed by : [address] [address] Hgb 13.4 13.0 - 17.5 g/dL [facility] Comment:Testing performed by : [address] [address] Hct 42.9 38.9 - 50.3 % [facility] Comment:Testing performed by : [address] [address] Plt 209 150 - 400 K/cumm [facility] Comment:Testing performed by : [address] [address] MPV 8.9(L) 9.1 - 12.3 fL [facility] Comment:Testing performed by : [address] [address] RBC 5.11 4.30 - 5.80 M/cumm [facility] Comment:Testing performed by : [address] [address] MCV 84.0 81.3 - 96.4 fL [facility] Comment:Testing performed by : [address] [address] MCH 26.2(L) 27.1 - 33.3 pg [facility] Comment:Testing performed by : [address] [address] MCHC 31.2(L) 32.3 - 35.7 g/dL [facility] Comment:Testing performed by : [address] [address] RDW CV 17.8(H) 11.1 - 14.9 % [facility] Comment:Testing performed by : [address] [address] RDW SD 53.8(H) 35.7 - 48.1 fL [facility] Comment:Testing performed by : [address] [address] NRBC abs 0.00 0.00 - 0.01 K/cumm [facility] Comment:Testing performed by : 05 [address] [address] Blood 03/28/2025 3:24 PM CDT 03/28/2025 3:42 PM CDT Tyler Reagan MD LAB BLOOD ORDERABLES Final Resul t [facility] [address] [facility] [place] [address] * Comprehensive metabolic panel (03/28/2025 3:24 PM CDT) Sodium 140 135 - 145 mmol/L Comment:Testing performed by : [address] [address] Potassium, pl 4.0 3.3 - 4.9 mmol/L ELIZABETH Comment:Testing performed by : [address] [address] Chloride 105 97 - 110 mmol/L [facility] Comment:Testing performed by : [address], [place]., [address] CO2 23 22 - 32 mmol/L ELIZABETH Comment:Testing performed by : [address], [place]., [address] Anion gap 12 2 - 15 mmol/L ELIZABETH Comment:Testing performed by : [address], [place]., [address] BUN 19 6 - 25 mg/dL [facility] Comment:Testing performed by : [address], [place]., [address] Creatinine 1.10 0.80 - 1.30 mg/dL ELIZABETH Comment:Testing performed by : [address], [place]., [address] Glucose 176 70 - 199 mg/dL [facility] Comment: Interpretive Data Fasting glucose >/= 126 mg/dl is diagnostic for diabetes. Fasting is defined as no caloric intake for at least 8 hours. Fasting glucose between 100 mg/dl to 125 mg/dl is diagnostic of prediabetes. In a patient with classic symptoms of hyperglycemia or hyperglycemic crisis, a random glucose >/= 200 mg/dl is diagnostic for diabetes. In the absence of unequivocal hyperglycemia, results should be confirmed by repeat testing. The classification and Diagnosis of Diabetes Diabetes Care 202; 46: S19-S40. Current interpretive data was last revised 2022. Testing performed by: [address] [address] Calcium 8.8 8.5 - 10.3 mg/dL [facility] Comment:Testing performed by : [address] [address] Bilirubin, total 0.3 0.1 - 1.2 mg/dL EL[facility]ETH Comment:Testing performed by : [address] [address] Protein, pl 6.7 6.5 - 8.5 g/dL [facility]ETH Comment:Testing performed by : [address] [address] Albumin 4.1 3.5 - 5.0 g/dL EL[facility]ETH Comment:Testing performed by : [facility], [address] [place] [address]., [address] Alk phos 66 40 - 130 Units/L ELIZABETH Comment:Testing performed by : [address] [address] ALT 32 7 - 55 Units/L ELIZABETH Comment:Testing performed by : [address] [address] AST 22 10 - 50 Units/L [facility]ETH Comment:Testing performed by : [address] [address] Blood 03/28/2025 3:24 PM CDT 03/28/2025 3:42 PM CDT Tyler Reagan MD LAB BLOOD ORDERABLES Final Resul t Performing Organization Address [facility] Co de Phone Number [place] [phone] [facility] Department [place] [address] * (ABNORMAL) DIABETES EYE EXAM (03/28/2025 11:46 AM CDT) SCRIBED DIABETIC DILATED EYE EXAM Abnormal Thor Lizama MD HEALTH MAINTENANCE Final Result * Imaging Lumbar/Sacral Facet Medial Branch Block Bilateral ([id number]) (03/07/2025 9:50 AM CDT) Narrative R[facility]MON_[facility]GET_CR[facility]Y_[facility] - 03/07/2025 4:01 PM CDT The images from this study are not interpreted by Radiology. Please refer to the physician's procedure / OR operative note. Karla Gu MD IMG PAIN MGMT PROCEDURES Final R esult Performing Organization Address City/[facility]/ZIP Co de Phone Number [email or web address] * POCT glucose (03/07/2025 9:09 AM CDT) Glucose, POC 157 70 - 199 mg/dL Blood 03/07/2025 9:09 AM CDT 03/07/2025 9:09 AM CDT Karla Gu MD LAB POCT ORDERABLES - DEVICE Fin al Result Performing Organization Address [facility] de Phone Number ELIZABETH [address] [address] * Imaging Lumbar/Sacral Facet Medial Branch Block Bilateral ([id number]) (02/21/2025 9:57 AM CDT) Narrative TRAMAINE_MHB_MHE - 02/21/2025 12:57 PM CDT The images from this study are not interpreted by Radiology. Please refer to the physician's procedure / OR operative note. Karla Gu MD IMG PAIN MGMT PROCEDURES Final R esult Performing Organization Address [facility] de Phone Number [email or web address] * POCT glucose (02/21/2025 9:15 AM CDT) Glucose, POC 182 70 - 199 mg/dL Blood 02/21/2025 9:15 AM CDT 02/21/2025 9:15 AM CDT Karla Gu MD LAB POCT ORDERABLES - DEVICE Fin al Result Performing Organization Address [facility] Co de Phone Number ELIZABETH [address] [place] [address] * Surgical pathology (02/16/2025 1:55 PM CDT) Tissue (Polyp(s), colon/colorectal, esophageal, gastric) 02/16/2025 1:55 PM CDT Tissue specimen (specimen) (Polyp(s), colon/colorectal, esophageal, gastric) 02/16/2025 2:08 PM CDT Narrative PATHOLOGY [facility] - 02/20/2025 2:55 PM CDT [facility] Department of Pathology [address] [place] [address] Note to Patients: This report may contain a detailed description of human tissue sent by a health care provider to the laboratory for pathologic evaluation. The content of this report is essential for diagnosis and may provide important critical findings. This information may be unfamiliar to patients to review without a medical professional present. It is advised that the patient review this report in the presence of a health care provider who can answer questions and explain the details. Final Report Patient Name: DANICA QUARLES JR. : 1960 (Age: 64) Gender: M Address: [address] [place] [address] [place] [address] Hospital #: [id number] Service: Gastro Location: Patient Type: [facility] OUTPATIENT Taken: 02/16/2025 Received: 02/19/2025 Accessioned: 02/19/2025 Reported: 02/20/2025 Physician(s): MD Lino Corcoran M.D. Diagnosis: A. Large bowel, cecal polyp x3, biopsy - Fragments of tubular adenoma(s) B. Large bowel, ascending colon polyp x3, biopsy - Fragments of tubular adenoma(s) Francy Guzman MD Report Electronically Reviewed and Signed Out By Francy Guzman MD 02/20/2025 14:55:31 Specimen(s) Received: A: Cecal polyp x3 B: Ascending colon polyp cold x3 Microscopic Description: Unless gross-only is specified, the final diagnosis for each specimen is based on a microscopic examination of each tissue sample. Clinical History: The patient is a 64-year-old man status post colon polypectomy. Operative procedure: Colonoscopy with biopsy. Gross Description Received in two formalin jars labeled with the patient's identifiers. A. Labeled cecal polyp x3 and consists of three schumacher tissue fragments ranging from 0.5-0.8 cm. Entirely submitted. Labeled A1. Jar 0. B. Labeled ascending colon polyp cold x3 and consists of multiple schumacher tissue fragments admixed with debris, measuring 1.2 x 1.0 x 0.3 cm in aggregate. Entirely submitted. Labeled B1. Jar 0. jjmhb/02/19/2025 15:01 ANGELO Kwon, PA (ASCP) Microscopic slide review and interpretation for this case was performed at [facility], Department of Surgical Pathology, [address] [facility] [id number], [place] [address] CLIA # [id number] Konrad Jj MD LAB PATHOLOGY ORDERABLES Final Result PATHOLOGY [facility] * Colonoscopy (02/16/2025 1:40 PM CDT) Anatomical Region Laterality Modality Other Narrative Procedure Note Konrad Jj MD - 02/16/2025 1:40 PM CDT [facility] GI ENDOSCOPY Patient Name: Danica Quarles Procedure Date: 02/16/2025 1:40 PM Date of : 1960 Admit Type: Outpatient Age: 64 Gender: Male Attending MD: Konrad Jj M.D. Room: [facility] ENDOSCOPY ROOM 06 Note Status: Finalized Procedure: Colonoscopy Indications: High risk colon cancer surveillance: Personalhistory of colonic polyps Referring MD: Providers: Konrad Jj M.D. Medicines: See the Anesthesia note for documentation of the administered medications Complications: No immediate complications. Estimated Blood Loss: Estimated blood loss was minimal. Procedure: Pre-Anesthesia Assessment: - Prior to the procedure, a History and Physicalwas performed, and patient medications and allergieswere reviewed. The risks and benefits of the procedureand the sedation options and risks were discussed withthe patient. All questions were answered and informed consent was obtained. Patient identification and proposed procedure were verified. After reviewingthe risks and benefits, the patient was deemed in satisfactory condition to undergo the procedure.The anesthesia plan was to use monitored anesthesiacare (MAC). Immediately prior to administration of medications, the patient was re-assessed foradequacy to receive sedatives. The heart rate, respiratory rate, oxygen saturations, blood pressure, adequacyof pulmonary ventilation, and response to care were monitored throughout the procedure. The physical status of the patient was re-assessed after the procedure. The benefits, risks and alternatives of theprocedure and sedation were discussed and informed consentwas obtained. All questions were answered. Please referto the signed informed consent document in the medical record. The scope was passed under direct vision.The [id number] colonoscope was introduced through theanus and advanced to the cecum, identified byappendiceal orifice and ileocecal valve. The colonoscopy was performed without difficulty. The patient tolerated the procedure well. The quality of the bowel preparation was adequate. Scope insertion time was5 minutes. Scope withdrawal time was 25 minutes. Prep was administered in a split dose. Findings: The perianal and digital rectal examinations were normal. Three sessile polyps were found in the cecum. The polyps were 5 - 6mm in size. These polyps were removed with a cold snare. Resection and retrieval were complete. Three sessile polyps were found in the ascending colon. The polypswere 5 - 6 mm in size. These polyps were removed with a cold snare.Resection and retrieval were complete. Diverticula (mild) were found in the sigmoid colon. Internal hemorrhoids were found. The hemorrhoids were small. Impression: - Three 5 - 6 mm polyps in the cecum, removed witha cold snare. Resected and retrieved. - Three 5 - 6 mm polyps in the ascending colon, removed with a cold snare. Resected andretrieved. - Diverticulosis in the sigmoid colon. - Internal hemorrhoids. Recommendation: - Await pathology results. - Resume previous diet today. - Discharge patient to home. - Patient has a contact number available for emergencies. The signs and symptoms of potential delayed complications were discussed with thepatient. Return to normal activities tomorrow. Written discharge instructions were provided to thepatient. - Repeat colonoscopy in 3 years for surveillancewith extended prep. - I would be happy to see you in my GI clinic ifyou have further questions or concerns or if symptoms progress Konrad Jj M.D. 02/16/2025 3:07:35 PM Number of Addenda: 0 Note Initiated On: 02/16/2025 1:40 PM Recognized by the [employer] for promoting quality in endoscopy Konrad Jj MD ENDOSCOPY PROCEDURES Lillie l Result * POCT glucose (02/16/2025 1:11 PM CDT) Glucose, POC 122 70 - 199 mg/dL Blood 02/16/2025 1:11 PM CDT 02/16/2025 1:11 PM CDT Konrad Jj MD LAB POCT ORDERABLES - DEV ICE Final Result [facility] [address] [facility] Department [place] [address] * POCT hemoglobin A1c (02/05/2025 8:47 AM CDT) Hemoglobin A1C, POC 7.4 4.0 - 5.6 % Blood spot 02/05/2025 8:47 AM CDT Irena Jung NP POINT OF CARE TEST ORDERABLE S Final Result * (ABNORMAL) Lipid panel (01/29/2025 7:26 AM CDT) Cholesterol 152 30 - 199 mg/dL Comment: Interpretive Data Ages < or = 19 years Acceptable: <170 mg/dL Borderline high: 170-199 mg/dL High: >or= 200 mg/dL Ages > or = 20 years Desirable: <200 mg/dL Borderline high: 200-239 mg/dL High: >or= 240 mg/dL Literature References: 1. Expert Panel on Integrated Guidelines for Cardiovascular Health and Risk Reduction in Children and Adolescents. Pediatrics 2011;128:S213 2. NCEP Expert Panel. Circulation 2003;110:227 Current Interpretive Data was last revised on 2018. Testing performed by: [address] [address] Triglycerides 666(H) <=149 mg/dL ELIZABETH Comment: Interpretive Data Ages < or = 9 years Acceptable: <75 mg/dL Borderline high: 75-99 mg/dL High: >or= 100 mg/dL Ages 10 to 20 years Acceptable: <90 mg/dL Borderline high: 90-129 mg/dL High: >or= 130 mg/dL Ages > or = 20 years Desirable: <150 mg/dL Borderline high: 150-199 mg/dL High: 200-499 mg/dL Very high: >or= 499 mg/dL Literature References: 1. Expert Panel on Integrated Guidelines for Cardiovascular Health and Risk Reduction in Children and Adolescents. Pediatrics 2011;128:S213 2. NCEP Expert Panel. Circulation 2004;110:227 Current Interpretive Data was last revised on 2018. Testing performed by: [address] [address] HDL 24(L) >=40 mg/dL ELIZABETH Comment: Interpretive Data Ages < or = 19 years Acceptable: >45 mg/dL Borderline low: 40-45 mg/dL Low: <40 mg/dL Ages > or = 20 years Desirable: >or= 60 mg/dL Low: <40 mg/dL Literature References: 1. Expert Panel on Integrated Guidelines for Cardiovascular Health and Risk Reduction in Children and Adolescents. Pediatrics 2011;128:S213 2. NCEP Expert Panel. Circulation 2004;110:227 Current Interpretive Data was last revised on 2018. Testing performed by: [address] [address] LDL, calculated See Comment <=129 mg/dL [facility]HN Comment: Unable to calculate due to elevated Triglycerides. Interpretive Data Ages < or = 19 years Acceptable: <110 mg/dL Borderline high: 110-129 mg/dL High: >or= 130 mg/dL Ages > or = 20 years Optimal: <100 mg/dL Near optimal: 100-129 mg/dL Borderline high: 130-159 mg/dL High: >160 mg/dL Calculated using the Varun LDL-C estimating equation. This equation was implemented on 2024. Prior to this date LDL-C was estimated using the Friedewald equation. Literature References: 1. Expert Panel on Integrated Guidelines for Cardiovascular Health and Risk Reduction in Children and Adolescents. Pediatrics 2011;128:S213 2. NCEP Expert Panel. Circulation 2004;110:227 3. Varun Mullen et al. SEVERINO Cardiol. 2020 February 22;5(5):540-548. doi: 10.1001/jamacardio.2020.0013 Current Interpretive Data was last revised on 2024. Testing performed by: [address] [address] Non-HDL Cholesterol 128 mg/dL [facility] HAHN Comment: Interpretive Data Ages < or = 19 years Acceptable: <120 mg/dL Borderline high: 120-144 mg/dL High: >145 mg/dL Ages > or = 20 years When triglycerides are >200 mg/dL, Non-HDL cholesterol is a secondary target of therapy with treatment goals that are 30 mg/dL greater than the LDL cholesterol target. Literature References: 1. Expert Panel on Integrated Guidelines for Cardiovascular Health and Risk Reduction in Children and Adolescents. Pediatrics 2011;128:S213 2. NCEP Expert Panel. Circulation 2004;110:227 Current Interpretive Data was last revised on 2018. Testing performed by: [address] [address] Chol/HDL ratio 6 ELIZABETH Comment:Testing performed by : [address] [address] Blood 01/29/2025 7:26 AM CDT 01/29/2025 7:36 AM CDT us Tyler Reagan MD LAB BLOOD ORDERABLES Final Resul t Performing Organization Address [facility] de Phone Number [place] [phone] [place] [address] * Albumin Creatinine Ratio, Urine (03/01/2024 7:49 AM CDT) Albumin Ur 16.3 mg/L Comment: Interpretive Data No reference range established. Current interpretive data was last revised 2019. Testing performed by: [address] [address] Creatinine Ur 96.2 mg/dL ELIZABETH Comment: Interpretive Data No reference range established. Current interpretive data was last revised 2019. Testing performed by: [address] [address] Albumin Creatinine Ratio, Ur 17 1 - 29 mg/g ELIZABETH Comment:Testing performed by : [address] [address] Urine 03/01/2024 7:49 AM CDT 03/01/2024 9:53 AM CDT us Lino Davenport MD LAB URINE ORDERABLES Final R esult Performing Organization Address [facility] Co de Phone Number [place] [phone] [facility] [place] [address] * PSA screen (11/26/2023 7:27 AM GRAIN INSPECTOR) PSA-Total 2.53 <=5.40 ng/mL ELIZABETH Comment: Interpretive Data AGE SEX REFERENCE INTERVAL 0 minutes-150 years Female None 0 minutes-49 years Male None 50-59 years Male 0-3.90 60-69 years Male 0-5.40 70-79 years Male 0-6.20 80-150 years Male 0-6.20 The Jose Francisco PSA Total assay procedure was used. Results from different manufacturers or methods may not be comparable. Serial testing should be performed using the same method. Current interpretive data last revised 22. Testing performed by: [facility], [address] [place] [address]., [address] Blood 11/26/2023 7:27 AM GRAIN INSPECTOR 11/26/2023 7:39 AM GRAIN INSPECTOR Lino Davenport MD LAB BLOOD ORDERABLES Final R esult Performing Organization Address [facility] Co de Phone Number ELIZABETH [address] Department [place] [address] * Hepatitis C antibody (03/26/2020 8:44 AM CDT) Hep C Ab NONREACT NONREACTIVE [facility] Comment: Siemens [employer] using COLTON (chemiluminescent immunoassay) technology. NONREACTIVE: Antibodies to Hepatitis C not detected. This does not exclude early acute Hepatitis C infection, possibility of exposure to Hepatitis C, antibodies below detection limit, or to lack of antibody reactivity to the antigen used in this assay. EQUIVOCAL: Antibodies to Hepatitis C may or may not be present. Sample to be confirmed by real-time PCR method. REACTIVE: Antibodies to Hepatitis C detected.Sample to be confirmed by real-time PCR method. Blood specimen (specimen) 03/26/2020 8:44 AM CDT 03/26/2020 9:33 AM CDT Narrative Resulting Agency Comment CLI Lino Davenport MD LAB MICROBIOLOGY - GENERAL O RDERABLES Final Result Performing Organization Address [facility] [place] [address], [facility] [phone] * DIABETES FOOT EXAM (05/09/2019) Diabetic Foot Exam Unknown Thor Lizama MD HEALTH MAINTENANCE Final Result from Last 3 Months or Most Recently Relevant to Health Maintenance Insurance [facility] [id number] MEDICARE [facility] [id number] Advance Directives For more information, please contact: [phone] Documents on File Type Date Recorded Patient Cardboard Inserter Expl anation Power of [place] Torque Tester 08/30/2023 9:34 AM Advance Directives and Livin g Will 08/25/2023 10:41 AM * Full Code (Latest Code Status on File) Date Activated Date Inactivated Comments 09/14/2023 4:13 PM 09/20/2023 4:11 PM Care Teams Supervisor [employer] Relationship Specialty Start Date End Date Lino Davenport MD [address] [place] [address] PCP - General Internal Medicine 02/17/19 Madyson Carcamo DPM [address] [facility] [address] [place] [address] Referring Physician Orthopedic Surgery 04/26/19 Jacob Truong MD [address] [place] [address] Referring Physician Ophthalmology 11/12/20 Pietro Estrada MD [address] [facility] [address] [place] [address] Consulting Physician Pulmonary Disease 11/12/20 Ralu Cannon MD [address] [facility] [address] [place] [address] Referring Physician Urology 11/12/20 Chay Emmanuel MD [address] [facility] [address] [place] [address] Referring Physician Cardiology 08/03/23 Humble Huerta MD [address] [place] [address] Consulting Physician Cardiothoracic Surgery 08/03/23 Tyler Reagan MD [address] [place] [address] Consulting Physician Cardiovascular Disease 09/15/23 John Vargas, OD [address] [place] [address] Optometry 03/08/24 Antonietta Morales MD [address] [place] [address] Consulting Physician Cardiothoracic Surgery 03/08/24 Louis Sevilla MD [address] [facility] [address] [place] [address] Referring Physician Hematology 05/15/24 Karla Gu MD [address] [facility] [address] [place] [address] Consulting Physician Pain Management 06/08/24
--- OUTSIDE RECORDS SUMMARY | 2025-05-08 13:40 | XMS_ITS | Clinical Summary ---
Author Organization [facility] eliud [facility] Address [address] [place] [address] Care Team Providers Care Freight Booker Name Role Phone Marychuy Pires MD Primary Care Provider [phone] Allergies Active Allergy Reactions Criticality Noted Date Comments Iodinated Contrast Media Hives High 12/09/2020 Iodine Hives,Unknown High 02/16/2019 IV dye Niacin Rash,Unknown Medium 11/05/2016 rash,swelling Purple ears Hot face rash,swelling rash,swelling Purple ears Hot face Medications dapagliflozin (Farxiga) 10 mg Tablet Farxiga 10 mg tablet 01/05/20 19 Active fenofibrate (LOFIBRA) 160 mg Tablet Take 160 mg by mouth. 12/30/19 20 Active folic acid (FOLVITE) 1 mg tablet folic acid 1 mg tablet 12/18/19 19 Active icosapent ethyL (Vascepa) 1 gram Capsule Vascepa 1 gram capsule 07/31/20 19 Active insulin degludec (Tresiba FlexTouch U-200) 200 unit/mL pen syringe Tresiba FlexTouch U-200 insulin 200 unit/mL (3 mL) subcutaneous pen INJECT 70 UNITS SUB Q ONCE DAILY 01/06/20 19 Active latanoprost (XALATAN) 0.005 % solution latanoprost 0.005 % eye drops Active magnesium oxide 500 mg Tablet magnesium oxide 500 mg tablet TAKE 1 TABLET BY MOUTH EVERY DAY 12/28/19 20 Active metFORMIN (GLUCOPHAGE) 1,000 mg tablet metformin 1,000 mg tablet TAKE 1 TABLET BY MOUTH TWICE A DAY 05/22/20 19 Active metoprolol tartrate (LOPRESSOR) 25 mg tablet metoprolol tartrate 25 mg tablet 07/19/20 20 Active rosuvastatin (CRESTOR) 20 mg tablet rosuvastatin 20 mg tablet 06/17/20 20 Active tamsulosin (FLOMAX) 0.4 mg capsule tamsulosin 0.4 mg capsule TAKE 1 CAPSULE BY MOUTH EVERY DAY 12/27/19 19 Active Blood-Glucose Meter (OneTouch UltraMini) Kit OneTouch UltraMini kit USE DIRECTED. Active lancets (One Touch Delica) 33 gauge OneTouch Delica Lancets 33 gauge USE TO TEST SUGARS TWICE A DAY Active Syringe with Needle, Disp, (BD Luer-Venu Syringe) 3 mL 25 gauge x 1 Syringe BD Luer-Venu Syringe 3 mL 25 gauge x 1 USE TO INJECT TESTOSTERONE ONCE WEEKLY Active Needle, Disp, 18 G (Disposable [place]) 18 gauge x 1 Needle BD Regular Bevel [place] 18 gauge x 1 USE TO WITHDRAW TESTOSTERONE DIRECTED Active Insulin [place], Disposable, (BD Ultra-Fine Micro Pen Needle) 32 gauge x 1/4 Needle BD Ultra-Fine Micro Pen Needle 32 gauge x 1/4 USE TO INJECT TRESIBA AT BEDTIME Active testosterone cypionate (DEPO-TESTOSTE JG) 200 mg/mL Oil testosterone cypionate 200 mg/mL intramuscular oil INJECT 1 ML INTRAMUSCULARLY EVERY OTHER WEEK. 06/02/20 20 Active blood sugar diagnostic (OneTouch Ultra Blue Test Strip) Strip OneTouch Ultra Blue Test Strip Active aspirin (Adult Low Dose Aspirin) 81 mg Tablet, Delayed Release (E.C.) Low Dose Aspirin 81 mg tablet,delayed release Take 1 tablet every day by oral route. 08/11/20 18 Active glimepiride (AMARYL) 1 mg tablet glimepiride 1 mg tablet PLEASE SEE ATTACHED FOR DETAILED DIRECTIONS Active losartan (COZAAR) 25 mg tablet losartan 25 mg tablet TAKE 1 TABLET BY MOUTH EVERY DAY Active semaglutide (Rybelsus) 7 mg Tablet Rybelsus 7 mg tablet TAKE 1 TABLET BY MOUTH EVERY DAY IN THE MORNING FOR 30 DAYS. 02/05/20 21 Active Insulin [place], Disposable, (BD Ultra-Fine Short Pen Needle) 31 gauge x 5/16 Needle BD Ultra-Fine Short Pen Needle 31 gauge x 5/16 Active blood sugar diagnostic (Accu-Chek Guide test strips) Strip Accu-Chek Guide test strips TESTS BLOOD SUGAR ONCE DAILY X 90 DAYS Active apixaban (Eliquis) 5 mg tablet Take 5 mg by mouth 2 times daily. 05/04/20 24 Active Active Problems Problem Noted Date Diagnosed Date Erythrocytosis 12/09/2020 Family History Medical History Relation Name Comments Brain Cancer Daughter 1 Lung Cancer Father Lung Cancer Sister 2 Relation Name Status Comments Daughter 1 Alive Daughter 2 Alive Father Mother Sister 1 Sister 2 Sister 3 Alive Social History Tobacco Use Types Packs/Day Years Used Date Smoking Tobacco: Never Smokeless Tobacco: Never Tobacco Cessation:Counseling Given: Not Answered Alcohol Use Standard Drinks/Week Comments Not Currently 0 (1 standard drink = 0.6 oz pur e alcohol) occasionally Feeling Safe Answer Date Recorded Within the last year, have y ou been afraid of your partner or ex-partner? No 12/09/2020 Within the last year, have y ou been humiliated or emotionally abused in other ways by your partner or ex-partner? No Within the last year, have y ou been kicked, hit, slapped, or otherwise physically hurt by your partner or ex-partner? No 12/09/2020 Within the last year, have y ou been raped or forced to have any kind of sexual activity by your partner or ex-partner? No 12/09/2020 Social Connections Answer Date Recorded In a typical week, how many times do you talk on the phone with family, friends, or neighbors? More than three times a week 12/09/2020 How often do you get togethe r with friends or relatives? Once a week 12/09/2020 How often do you attend chur or christianity services? Never 12/09/2020 Do you belong to any clubs o r organizations such as religious groups, unions, fraternal or athletic groups, or school groups? No 12/09/2020 How often do you attend meet ings of the clubs or organizations you belong to? Never 12/09/2020 Are you , , di vorced, , never , or living with a partner? 12/09/2020 Financial Resource Strain Answer Date R ecorded How hard is it for you to pa y for the very basics like food, housing, medical care, and heating? 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 Gender Identity Not on file Sexual Orientation Not on file Last Filed Vital Signs Vital Sign Reading Time Taken Comments Blood Pressure 127/68 05/08/2024 3:24 PM CDT Pulse 61 05/08/2024 3:24 PM CDT Temperature 36.7 C (98 F) 05/08/2024 3:24 PM CDT Respiratory Rate 18 05/08/2024 3:24 PM CDT Oxygen Saturation 94% 05/08/2024 3:24 PM CDT Inhaled Oxygen Concentration - - Weight 124.7 kg (275 lb) 05/08/2024 3:24 PM CDT Height 180.3 cm (5' 11) 05/06/2022 3:55 PM CDT Body Mass Index 38.35 05/06/2022 3:55 PM CDT Plan of Treatment Upcoming Encounters Date Type Department Care Team (Late st Contact Info) Description 05/08/2025 3:30 PM CDT Office Visit [facility] Oncology and Hematology - [address] [facility] [address] [place] [address] Louis Sevilla MD [address] [facility] [address] [place] [address] Health Maintenance Due Date Last Done Comments DIABETES ANNUAL RETINAL EXAM 1976 DIABETES MICROALBUMIN ANNUAL SCREEN 1976 LDL CHOLESTEROL ANNUAL 1976 DTAP/TDAP/TD VACCINES (1 - Tdap) 1977 FIT-DNA Q 3 years 2003 FIT/FOBT Q 1 year 2003 Flex Sig/CT Colonography Q 5 years 2003 RSV VACCINE (60+ or ) (1 - Risk 60-74 years 1-dose series) 2018 DIABETES ANNUAL FOOT EXAM 05/14/2024 05/14/2023 COVID-19 Vaccine (4 - 2023-2 5 season) 2024 07/07/2022, 07/06/2022, 04/06/2022 DIABETES HBA1C Q 6 MONTHS 09/01/20242023, 11/26/2023, 09/15/2021, Additional history exists Preventative Visit- Commercial 10/25/2024 0 05/14/2023, 11/28/2021, 11/12/2020, Additional history exists INFLUENZA VACCINE (#1) 2025 3, 11/28/2021, 08/29/2020, Additional history exists COLORECTAL SCREENING 04/24/2031 04/24/2021, 04/24/2021, 04/24/2021, Additional history exists Colorectal Cancer Screening 04/24/2031 PNEUMOCOCCAL VACCINE 50+ YEARS Completed 08/10/2022 ZOSTER VACCINE Completed 11/23/2022, 08/24/2022 Insurance [employer] Care Teams Freight Booker Relationship Specialty Start Date End Date Marychuy Pires MD PCP - General Endocrinology 12/09/20
--- OUTSIDE RECORDS SUMMARY | 2025-05-08 13:40 | XMS_ITS | Encounter Summary ---
Author Organization [facility] Address [address] [place] [place] [address] Care Team Providers Care Buckle And Button Maker Name Role Phone Unavailable Primary Care Provider Unavailabl e Encounter Details Date Type Department Care Team (Late st Contact Info) Description 05/24/2020 Lab Requisition [facility] DermPath Lab [address], [place] [address] Hannah Roman MD [address] [facility] [address] [place] [address] Social History Tobacco Use Types Packs/Day Years [...] Priority Date/Time Associated Diagnosis Comments DERMATOPATHOLOGY Routine 05/23/2020 12:0 0 AM CDT documented in this encounter Results * DERMATOPATHOLOGY (05/23/2020 12:00 AM CDT) Case Report Dermatopathology Report Case: [id number] Authorizing Provider: Hannah Roman MD Collected: 05/23/2020 12:00 AM Ordering Location: [facility] DermPath Lab Received: 05/24/2020 08:22 AM Pathologist: Jory Klein MD Specimen: Skin, right distal clifton 0 4:20 PM CDT DERMATOPATHOLOGY LABORATORY Final Diagnosis Specimen A. SKIN, right distal clifton: DERMATOFIBROMA (D23.9) 0 4:20 PM CDT DERMATOPATHOLOGY LABORATORY at 1620 CDT Clinical History [place]-white papule; DF, calcinosis cutis; R/O atypia. 0 4:20 PM CDT DERMATOPATHOLOGY LABORATORY Gross Description Specimen A: Received is one formalin filled container labeled with the patient's name and designated right distal clifton. The specimen consists of a shave measuring [id number], bisected. Jar 0. 0 4:20 PM CDT DERMATOPATHOLOGY LABORATORY Microscopic Description Specimen A. SKIN, right distal clifton: There is epidermal hyperplasia. Within the dermis, there are fibrohistiocytic cells in haphazard array among coarse collagen bundles. 0 4:20 PM CDT DERMATOPATHOLOGY LABORATORY Disclaimer An external and internal positive and negative controls are appropriate for the histochemical, immunohistochemical and immunofluorescence stain(s) in this case (if any), except where stated explicitly. The performance characteristics of the stain(s) cited in this report were developed and its performance characteristic determined by the Dermatopathology Laboratory at [facility], directed by Dr. Rashaad Valenzuela. These tests need not be, and therefore are not, approved by the [place] Food and Drug Administration. The tests are used for clinical purposes. Billing Codes Specimen Charges Stain Charges 04397 1 0 4:20 PM CDT DERMATOPATHOLOGY LABORATORY Embedded Images 0 4:20 PM CDT DERMATOPATHOLOGY LABORATORY Pathology/Cytolog y TISSUE SPECIMEN FROM SKIN / Unknown 05/23/2020 05/24/2020 8:22 AM CDT us Hannah Roman MD LAB - PATHOLOGY/CYTOLOGY ORD ERABLES Final Result DERMATOPATHOLOGY LABORATORY [facility] - Department of Dermatology Comic Book Artist [place] [address], RUST [phone] documented in this encounter Visit Diagnoses Not on filedocumented in this encounter
--- OUTSIDE RECORDS SUMMARY | 2025-05-08 13:41 | XMS_ITS | Encounter Summary ---
Author Organization [facility] Facility Care Team Providers Care Pathology Laboratory Director Name Role Phone Deepthi Davenport MD Primary Care Provider [phone] Raleigh Villarreal MD Unavailable [phone] Marychuy Pires MD Unavailable [phone] Madyson Carcamo DPM Unavailable [phone] Jacob Truong MD Unavailable [phone] Pietro Estrada MD Unavailable [phone] Raul Cannon MD Unavailable [phone] Lois East MD Unavailable [phone] Chay Emmanuel MD Unavailable [phone] Humble Huerta MD Unavailable [phone] Tyler Reagan MD Unavailable John Vargas OD Unavailable [phone] Antonietta Morales MD Unavailable [phone] Louis Sevilla MD Unavailable [phone] Karla Gu MD Unavailable Encounter Details Date Type Department Care Team (Latest Contact Info) Description 01/11/2014 Orders Only [facility] CLINCONV Provider, MD Thor [address] [place] [address] Social History Tobacco Use Types Packs/Day Years Used Date Smoking Tobacco: Never Assessed Sex and Gender Information Value Date Recorded Sex Assigned at Not on file Legal Sex Male 7:57 PM ELECTRONIC GLUER Gender Identity Male 10/09/2021 7:46 AM ELECTRONIC GLUER Sexual Orientation Straight 10/09/2021 7: 46 AM ELECTRONIC GLUER documented as of this encounter Plan of Treatment Not on file documented as of this encounter Procedures Procedure Name Priority Date/Time Associated Diagnosis Comments CARDIOLOGY REPORT 09/01/2016 12: 00 AM ELECTRONIC GLUER CARDIOLOGY REPORT 09/01/2016 12: 00 AM ELECTRONIC GLUER documented in this encounter Results * CARDIOLOGY REPORT (09/01/2016 12:00 AM ELECTRONIC GLUER) Anatomical Region Laterality Modality Other Narrative 09/01/2016 12:00 AM ELECTRONIC GLUER Ordered by an unspecified provider. us Historical Provider CV CARDIAC SERVICES PROCE DURES Final Result * CARDIOLOGY REPORT (09/01/2016 12:00 AM ELECTRONIC GLUER) Anatomical Region Laterality Modality Other Narrative 09/01/2016 12:00 AM ELECTRONIC GLUER Ordered by an unspecified provider. us Historical Provider CV CARDIAC SERVICES PROCE DURES Final Result documented in this encounter Visit Diagnoses Not on filedocumented in this encounter Additional Health Concerns Infection Onset Date Last Indicated Resolved Time COVID: Suspected 11/25/2021 11/25/2021 11/25/2021 10:00 AM ELECTRONIC GLUER documented as of this encounter Care Teams Pathology Laboratory Director Relationship Specialty Start Date End Date Deepthi Davenport MD [address] [place] [address] PCP - General Internal Medicine 02/17/19 Raleigh Villarreal MD [address] [place] [address] Referring Physician Cardiovascular Disease 04/26/1911/26/21 Marychuy Pires MD [address] [address] Endocrinology 04/26/19 03/07/24 Madyson Carcamo DPM [address] [facility] [address] [place] [address] Referring Physician Orthopedic Surgery 04/26/19 Jacob Truong MD [address] [place] [address] Referring Physician Ophthalmology 11/12/20 Pietro Estrada MD [address] [facility] [address] [place] [address] Consulting Physician Pulmonary Disease 11/12/20 Raul Cannon MD [address] [facility] [address] [place] [address] Referring Physician Urology 11/12/20 Lois East MD [address] [facility] [address] [place] [address] Consulting Physician Cardiology 11/27/21 12/01/23 Chay Emmanuel MD [address] [email or web address] [address] [place] [address] Referring Physician Cardiology 08/03/23 Humble Huerta MD [address] [place] [address] Consulting Physician Cardiothoracic Surgery 08/03/23 Tyler Raegan MD [address] [facility] [address] [place] [address] Consulting Physician Cardiovascular Disease 09/15/23 John Vargas OD [address] [place] [address] Optometry 03/08/24 Antonietta Morales MD [address] [facility] [[email or web address] [address] [place] [address] Consulting Physician Cardiothoracic Surgery 03/08/24 Louis Sevilla MD [address] [address] Referring Physician Hematology 05/15/24 Karla Gu MD [address] [facility], [address] [address] Consulting Physician Pain Management 06/08/24 documented as of this encounter
--- OUTSIDE RECORDS SUMMARY | 2025-05-08 13:41 | XMS_ITS | Encounter Summary ---
Author Organization [facility] Facility Care Team Providers Care Truck Body Builder Name Role Phone Deepthi Davenport MD Primary Care Provider [phone] Raleigh Villarreal MD Unavailable [phone] Marychuy Pires MD Unavailable [phone] Madyson Carcamo DPM Unavailable [phone] Jacob Truong MD Unavailable [phone] Pietro Estrada MD Unavailable [phone] Raul Cannon MD Unavailable [phone] Lois East MD Unavailable [phone] Chay Emmanuel MD Unavailable [phone] Humble Huerta MD Unavailable [phone] Tyler Reagan MD Unavailable John Vargas OD Unavailable [phone] Antonietta Morales MD Unavailable [phone] Luois Sevilla MD Unavailable [phone] Karla Gu MD Unavailable Encounter Details Date Type Department Care Team (Latest Contact Info) Description 12/11/2016 Orders Only [facility] CLINCONV Provider, MD Thor [address] [place] [address] Social History Tobacco Use Types Packs/Day Years Used Date Smoking Tobacco: Never Assessed Sex and Gender Information Value Date Recorded Sex Assigned at Not on file Legal Sex Male 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 us Historical Provider Final Res ult documented in this encounter Visit Diagnoses Not on filedocumented in this encounter Additional Health Concerns Infection Onset Date Last Indicated Resolved Time COVID: Suspected 11/25/2021 11/25/2021 11/25/2021 10:00 AM MICRO COMPUTER SPECIALIST documented as of this encounter Care Teams Truck Body Builder Relationship Specialty Start Date End Date Deepthi Davenport MD [address] [place] [address] PCP - General Internal Medicine 02/17/19 Raleigh Villarreal MD [address] [place] [address] Referring Physician Cardiovascular Disease 04/26/1911/26/21 Marychuy Pires MD [address] [place] [address] Endocrinology 04/26/19 03/07/24 Madyson Carcamo DPM [address] [facility] [address] [place] [address] Referring Physician Orthopedic Surgery 04/26/19 Jacob Truong MD [address] [place] [address] Referring Physician Ophthalmology 11/12/20 Pietro Estrada MD [address] [facility] [address] [place] [address] Consulting Physician Pulmonary Disease 11/12/20 Raul Cannon MD [address] [facility] [address] [place] [address] Referring Physician Urology 11/12/20 Lois East MD [address] [facility] [address] [place] [address] Consulting Physician Cardiology 11/27/21 12/01/23 Chay Emmanuel MD [address] [place], [place] [address] Referring Physician Cardiology 08/03/23 Humble Huerta MD [address] [place] [address] Consulting Physician Cardiothoracic Surgery 08/03/23 Tyler Reagan MD [address] [place] [address] Consulting Physician Cardiovascular Disease 09/15/23 John Vargas OD [address] [place] [address] Optometry 03/08/24 Antonietta Morales MD [address] [facility] [address] [place] [address] Consulting Physician Cardiothoracic Surgery 03/08/24 Louis Sevilla MD [address] [facility] [address] [place] [address] Referring Physician Hematology 05/15/24 Karla Gu MD [address] [facility], [facility] [address] [place] [address] Consulting Physician Pain Management 06/08/24 documented as of this encounter
--- OUTSIDE RECORDS SUMMARY | 2025-05-08 13:41 | XMS_ITS | Patient Health Record ---
Author Organization [facility] Address [address] [place], [place] [address] Care Team Providers Care Car Salesman Name Role Phone NENA SOLIZ Unavailable [phone] Deepthi Freire Unavailable Unavailable Allergies Allergen (clinical drug ingredient) Drug/Non Drug Allergy documented on EMR Reaction Allergy Type Onset Date Status Niaspan Unknown Drug Allergy 11/02/2012 active Iodine Unknown Drug Allergy Active Reason For Referral No Information Medications Medication SIG (Take, Route, Frequency, Duration) Notes Start Date End Date Status Farxiga Active Folic Acid Active Losartan Potassium A ctive Aspirin 81 Active Tamsulosin HCl Activ e Atorvastatin Calcium Active Tresiba Active Eliquis Active Metformin & Diet Manage Prod Active Plan Of Treatment No Information Insurance Providers Payer Name Payer Address Payer Phone Subscriber Number Group Number Insured Name Patient Relationship to Insured Coverage Start Date Coverage End Date [employer] PPO [address] [place], [place] [id number] DANICA QUARLES Self - patient is the insured Medical (General) History Medical History History ICD Code Leg/Feet cramps Diabetic Heart Disease
--- OUTSIDE RECORDS SUMMARY | 2025-05-08 13:41 | XMS_ITS | Encounter Summary ---
Author Organization [facility] Facility Care Team Providers Care Machine Buffer Name Role Phone Deepthi Davenport MD Primary Care Provider [phone] Raleigh Villarreal MD Unavailable [phone] Marychuy Pires MD Unavailable [phone] Madyson Carcamo DPM Unavailable [phone] Jacob Truong MD Unavailable [phone] Pietro Estrada MD Unavailable [phone] Raul Cannon MD Unavailable [phone] Lois East MD Unavailable [phone] Chay Emmanuel MD Unavailable [phone] Humble Huerta MD Unavailable [phone] Tyler Reagan MD Unavailable John Vargas OD Unavailable [phone] Antonietta Morales MD Unavailable [phone] Louis Sevilla MD Unavailable [phone] Karla Gu MD Unavailable Encounter Details Date Type Department Care Team (Latest Contact Info) Description 01/15/2014 Orders Only [facility] Provider, MD Thor [address] [place] [id number] Social History Tobacco Use Types Packs/Day Years Used Date Smoking Tobacco: Never Assessed Sex and Gender Information Value Date Recorded Sex Assigned at Not on file Legal Sex Male 7:57 PM TECHNICAL SERVICE REP Gender Identity Male 10/09/2021 7:46 AM TECHNICAL SERVICE REP Sexual Orientation Straight 10/09/2021 7: 46 AM TECHNICAL SERVICE REP documented as of this encounter Plan of Treatment Not on file documented as of this encounter Procedures Procedure Name Priority Date/Time Associated Diagnosis Comments CARDIOLOGY REPORT 06/09/2016 12: 00 AM CDT CARDIOLOGY REPORT 06/09/2016 12: 00 AM CDT documented in this encounter Results * CARDIOLOGY REPORT (06/09/2016 12:00 AM CDT) Anatomical Region Laterality Modality Other Narrative 06/09/2016 12:00 AM CDT Ordered by an unspecified provider. us Historical Provider [facility] PROCE DURES Final Result * CARDIOLOGY REPORT (06/09/2016 12:00 AM CDT) Anatomical Region Laterality Modality Other Narrative 06/09/2016 12:00 AM CDT Ordered by an unspecified provider. us Historical Provider [facility] CARDI[facility] SERVICES PROCE DURES Final Result documented in this encounter Visit Diagnoses Not on filedocumented in this encounter Additional Health Concerns Infection Onset Date Last Indicated Resolved Time COVID: Suspected 11/25/2021 11/25/2021 11/25/2021 10:00 AM TECHNICAL SERVICE REP documented as of this encounter Care Teams Machine Buffer Relationship Specialty Start Date End Date Deepthi Davenport MD [address] [address] PCP - General Internal Medicine 02/17/19 Raleigh Villarreal MD [address] [address] Referring Physician Cardiovascular Disease 04/26/1911/26/21 Marychuy Pires MD [address] [address] Endocrinology 04/26/19 03/07/24 Madyson Carcamo DPM [address] [facility] [address] [place] [address] Referring Physician Orthopedic Surgery 04/26/19 Jacob Truong MD [address] [place] [address] Referring Physician Ophthalmology 11/12/20 Pietro Estrada MD [address] [facility] [address] [place] [address] Consulting Physician Pulmonary Disease 11/12/20 Raul Cannon MD [address] [facility] [address] [place] [address] Referring Physician Urology 11/12/20 Lois East MD [address] [facility] [address] [place] [address] Consulting Physician Cardiology 11/27/21 12/01/23 Chay Emmanuel MD [address] [place] [address] Referring Physician Cardiology 08/03/23 Humble Huerta MD [address] [place] [address] Consulting Physician Cardiothoracic Surgery 08/03/23 Tyler Reagan MD [address] [facility] [address] [place] [address] Consulting Physician Cardiovascular Disease 09/15/23 John Vargas OD [address] [place] [address] Optometry 03/08/24 Antonietta Morales MD [address] [facility] [address] [place] [address] Consulting Physician Cardiothoracic Surgery 03/08/24 Louis Sevilla MD [address] [address] Referring Physician Hematology 05/15/24 Karla Gu MD [address] [facility], [address] [address] Consulting Physician Pain Management 06/08/24 documented as of this encounter
--- OUTSIDE RECORDS SUMMARY | 2025-05-08 13:41 | XMS_ITS | Referral Summary ---
Author Organization [facility] Address [address] [place] [address] Care Team Providers Care Monotype Operator Name Role Phone Lino Davenport MD Primary Care Provider [phone] Madyson Carcamo DPM Unavailable [phone] Jacob Truong MD Unavailable [phone] Pietro Estrada MD Unavailable [phone] Raul Cannon MD Unavailable [phone] Chay Emmanuel MD Unavailable [phone] Humble Huerta MD Unavailable [phone] Tyler Reagan MD Unavailable John Vargas OD Unavailable [phone] Antonietta Morales MD Unavailable [phone] Louis Sevilla MD Unavailable [phone] Karla Gu MD Unavailable Encounters Date Type Department Care Team Description 04/16/2025 Orders Only [facility] Health Information Management [address] [place] [address] Scanning, Provider 03/28/2025 3:05 PM CDT Lab [facility] [address] [place] [address] 03/28/2025 Telephone [facility] Primary Care [address] [facility] [address] [place] [address] Lino Davenport MD 03/07/2025 9:02 AM CDT - 03/07/2025 11:59 PM CDT Hospital Encounter [facility] [address] [facility] [address] [place] [address] Karla Gu MD Pain of lumbar facet joint (Primary Dx); Facet arthropathy, lumbar Discharge Disposition: Discharge to home or self care 03/04/2025 Results Follow-Up [facility] [place] [address] [facility] [address] [place] [address] Konrad Jj MD Surgical pathology 02/21/2025 9:02 AM CDT - 02/21/2025 11:59 PM CDT Hospital Encounter [facility] [address] [facility] [address] [place] [address] Karla Gu MD Pain of lumbar facet joint (Primary Dx); Facet arthropathy, lumbar Discharge Disposition: Discharge to home or self care 02/16/2025 1:42 PM CDT Anesthesia Event [facility] [address] [place] [address] Asiya Quarles MD Stein, Robert Joseph, CRNA 02/16/2025 1:30 PM CDT - 02/16/2025 2:00 PM CDT Surgery [facility] [address] [place] [address] Konrad Jj MD COLON REMOVAL SNARE 02/16/2025 12:30 PM CDT - 02/16/2025 3:30 PM CDT Hospital Encounter [facility] [address] [place] [address] Konrad Jj MD Status post colon polypectomy Discharge Disposition: Discharge to home or self care 02/13/2025 2:08 PM CDT - 02/13/2025 11:59 PM CDT Hospital Encounter [facility] [address] [address] Karla Gu MD Facet arthropathy, lumbar (Primary Dx); Pain of lumbar facet joint; Facet arthropathy, thoracic Discharge Disposition: Discharge to home or self care from Last 3 Months Allergies Active Allergy Reactions Criticality Noted Date Comments Gadolinium-Containing Contrast Media Rash Medium 07/11/2024 Iodinated Contrast Media Unknown,Hives Medium 04/26/2019 Iodine Unknown 02/16/2019 Betadine is ok Niacin Rash,Other (See comments),Unknown Medium 11/05/2016 rash,swelling Purple ears Hot face Medications folic acid (FOLVITE) 1 mg tablet Take 1 tablet (1,000 mcg total) by mouth daily 1 019 Active blood-glucose meter [facility] Accu-Chek Zoey Acti ve lancets 33 gauge misc OneTouch Delica Lancets 33 gauge USE TO [...] tablet (20 mg total) by mouth daily Active Repatha SureClick 140 mg/mL pen injector INJECT 1 ML SUBCUTANEOUSLY EVERY 2 WEEKS Active metFORMIN (GLUCOPHAGE) 1,000 mg tabletIndications: Type 2 diabetes mellitus without complication, without long-term current use of insulin (HCC) Take 1 tablet (1,000 mg total) by mouth 2 (two) times a day 180 tablet 1 Active fenofibrate nanocrystallized (TRICOR) 145 mg tablet 1 tablet (145 mg total) Active triamcinolone (KENALOG) 0.1 % cream Apply topically Active TRESIBA 200 unit/mL (3 mL) pen for injectionIndicatio ns:Type 2 diabetes mellitus with stable proliferative retinopathy of left eye, with long-term current use of insulin ([facility]) INJECT 0.31 ML (62 UNITS TOTAL) UNDER THE SKIN DAILY 27.9 mL 3 025 02/07 Active Accu-Chek Guide test strips strip USE TO TEST BLOOD SUGAR ONCE DAILY 100 strip 2 025 Active baclofen (LIORESAL) 10 mg tablet TAKE 1 TABLET BY MOUTH THREE TIMES A DAY 270 tablet 1 025 Active tamsulosin (FLOMAX) 0.4 mg extended release capsuleIndications :Benign prostatic hyperplasia with lower urinary tract symptoms TAKE 1 CAPSULE BY MOUTH EVERY DAY 100 capsule 1 025 Active Farxiga 10 mg tabletIndications: Type 2 diabetes mellitus with stable proliferative retinopathy of left eye, with long-term current use of insulin ([facility]) TAKE 1 TABLET (10 MG TOTAL) [...] complications such as vomiting. 2 mL 1 07/08/2 025 Active pen needle, diabetic 32 gauge x 1/4 needleIndications: Uncontrolled type 2 diabetes mellitus with hyperglycemia (HCC) Use to inject tresiba once daily 100 each 3 025 Active ferrous sulfate ER 324 mg (65 mg iron) EC tablet TAKE 1 TABLET BY MOUTH EVERY OTHER DAY 45 tablet 1 025 Active eszopiclone (LUNESTA) 3 mg tabletIndications: Insomnia TAKE 1 TABLET (3 MG TOTAL) BY MOUTH NIGHTLY TAKE IMMEDIATELY BEFORE BEDTIME 30 tablet 025 Active pen needle, diabetic 32 gauge x [...] 11/04/2023 Assessment & Plan (12/02/2023 5:34 PM INSOLE CEMENTER): Continue under the care grants and contracts assistant. Continue on anticoagulation therapy. Stable. High risk [...] 06/2023 Assessment & Plan (12/02/2023 5:33 PM INSOLE CEMENTER): Resolved with recent surgical repair Vitamin B12 [...] resolution. Assessment & Plan (11/28/2021 8:43 AM INSOLE CEMENTER): IMPRESSION: Mild left basilar ground-glass opacity, likely [...] resolution CT chest Discussed plans with Kam No symptoms Decreased vision of left eye 11/28/2021 Overview (11/28/2021): Proliferative Retinopathy, sec to DM Dr Truong is retina specialist Assessment & Plan (11/28/2021 8:51 AM INSOLE CEMENTER): Proliferative Retinopathy, sec to DM Dr Truong [...] CDT): The patient was recently hospitalized in [place] with post polypectomy bleeding after a colonoscopy on 07/04/2024 at [facility]. Pathology results unavailable for review today - I will request these from [facility]. The colonoscopy in [place] revealed an additional 5-6 small 3-6 mm [...] sleeping better insomnia as written by the [employer]. I encouraged the [...] can try melatonin up to 10 mg [id number]. I also gave the patient information published [...] maintenance. Assessment & Plan (11/27/2021 3:25 PM INSOLE CEMENTER): shingrix vaccination series recommended Flu vax if [...] and establishing or updating healthcare power of employee benefits attorney document and providing our office with a copy. Assessment & Plan (11/12/2020 8:15 AM INSOLE CEMENTER): Wear sunscreen with SPF over 50 while [...] office. Assessment & Plan (11/09/2019 10:02 AM INSOLE CEMENTER): Wear sunscreen while outdoors. Wear seatbelts while [...] regularly Assessment & Plan (12/02/2023 8:54 AM INSOLE CEMENTER): Cont wt loss attempts Cont to exercise [...] exercise Assessment & Plan (11/27/2021 3:19 PM INSOLE CEMENTER): Work on serious permanent wt loss attempts Candidate for gastric sleeve surgery, discussed Assessment & Plan (11/12/2020 8:19 AM INSOLE CEMENTER): Work on attempts to lose weight about 1 lb a week. Join a wt loss program if necessary. Try to reach for BMI under 30. Exercise regularly, Limit carbs and sugars. Control portion intake. Consume 6-8 8oz glasses of water daily. BMI Follow-up includes: nutrition counseling, exercise counseling and education provided. Assessment & Plan (11/09/2019 9:59 AM INSOLE CEMENTER): Work on attempts to lose weight about [...] stable. Assessment & Plan (12/02/2023 5:32 PM INSOLE CEMENTER): Follow low sodium DASH Diet. Exercise regularly [...] wt Assessment & Plan (11/27/2021 3:20 PM INSOLE CEMENTER): bp controlled Low sodium diet Reg exercise, make it regular at least 4 d a week for 30 mins Wt loss Assessment & Plan (11/12/2020 8:25 AM INSOLE CEMENTER): bp controlled Type 2 diabetes mellitus wit [...] 9:04 AM CDT): Seeing endo soon at [facility] Will see what they recommend re med changes A1c is 6.4 cont the same regimen for now Assessment & Plan (12/02/2023 8:52 AM INSOLE CEMENTER): Improving Cont to exercise A1c 6 Lower [...] Routine diabetic foot care recommended with a event decorator Inspect feet on a regular basis report immediately if there are any open sores or signs of infection Monitor blood sugars as discussed. Fasting blood sugars should be less than 120 and two-hour post meal blood sugars should be less than 180. Repeat and record blood sugars and bring readings to office visits. Controlled on current regimen. Continue under care of parachute cushion installer Dr Pires Weight disorder 04/30/2019 Assessment & [...] 10/27/19 17 Coronary artery disease invo lving [facility] [place] [facility] without angina pectoris 10/22/2016 Overview (09/19/2023): Ascending aortic aneurysm, bicuspid aortic valve with mild aortic stenosis, severe left anterior descending coronary artery stenosis; s/p ascending aortic replacement, coronary artery bypass grafting x 1, and sternal plating on 09/14/23 Assessment & Plan (11/28/2021 8:49 AM INSOLE CEMENTER): 15 % blockage of coronary artery on cardiac cath dont think recent ER visit with r sided cp is cardiac. Patient has musculoskeletal pain and pain in the shoulder upper back area Stretching and exercises of the upper back and shoulders recommended Patient to ff up with Dr Cruzito fitch, may need update on stress testing MARY [...] prefer not to do an in-lab study. CHANI adapt Assessment & Plan (12/02/2023 5:32 PM INSOLE CEMENTER): Work on compliance with CPAP Ff up with Dr Estrada Assessment & Plan (05/10/2023 3:21 PM CDT): The patient will continue CPAP at 14 cm water pressure. Denied need for supplies. CHANI adapt Assessment & Plan (04/06/2022 11:32 AM [...] care. Assessment & Plan (11/27/2021 3:19 PM INSOLE CEMENTER): Work on compliance with CPAP Ff up with Dr Estrada in January as planned Assessment & Plan (01/31/2021 10:43 AM CDT): Patient continue to wear his CPAP at 14 cm water pressure while sleeping. His DME is [facility]. Assessment & Plan (11/12/2020 8:26 AM INSOLE CEMENTER): Work on compliance with CPAP Ff up with Dr Estrada in January as planned Pure hypertriglyceridemia 06/10/2016 Overview (11/27/2021): Managed by dr East on fenofibrate 160 mg daily. Managed by dr East on fenofibrate 160 mg daily. Last Assessment & Plan: Ff low chol diet, cont meds. Eat out less Stop cheese intake Assessment & Plan (11/28/2021 8:46 AM INSOLE CEMENTER): Now on lopid 600 mg bid and [...] a spigelian hernia CT abdomen c contrast Immunizations Immunization Administration Dates Next Due Influenza, [...] Pneumococcal Conjugate Pcv20 08/10/2022 [facility] Recombinant 11/23/2022,08/24/2022 Social History Tobacco Use Types Packs/Day Years [...] materials from doctor or pharmacy Never 10/07/2023 [facility] Utilities Answer Date Recorded In the past 12 months has th e [employer], gas, oil, or water [employer] threatened to shut off services in your [...] often do you attend chur ch or mormonism services? 1 to 4 times per year 09/17/2023 Do you belong to any clubs o r organizations such as episcopal groups, unions, fraternal or athletic groups, or [...] place to sleep or slept in a intermediate (including now)? No 09/17/2023 PHQ-9 Answer Date Recorded PHQ-9 Total Score 4 07/25/2024 Personal Safety Answer Date Recorded Have you ever been in or are you currently in a harmful physical or emotional relationship or is someone making you feel afraid or unsafe? Denies 02/16/2025 Sex and Gender Information Value Date Recorded Sex Assigned at Not on file Legal Sex Male 7:57 PM INSOLE CEMENTER Gender Identity Male 10/09/2021 7:46 AM INSOLE CEMENTER Sexual Orientation Straight 10/09/2021 7: 46 AM INSOLE CEMENTER Last Filed Vital Signs Vital Sign Reading [...] 02/13/2025 2:17 PM CDT Plan of Treatment Not on file Medical Devices Implanted Type Area Wiring Technician Device Identifier Shelf Expiration Date Model / Serial / Lot Abyrx Hemasorb Os-Spa Spatula Wax 2gm Bone Sterile Os- - [id number] Implanted:Qty: 1 on 09/14/2023 by Antonietta Morales MD at [facility] Other - see comments N/A: Sternum Abyrx 03/24/2026 OS- / [employer]anav [employer] Plate Bone Low Profile 6 Hole H Shape Sternum Ti 115.102.06 - [id number] Implanted:Qty: 2 on 09/14/2023 by Antonietta Morales MD at [facility] Other - see comments N/A: Sternum [employer] 115.102. 06 / / [employer] Plate Bone Low Profile 6 Hole O Shape Sternum Ti 115.104.06 - [id number] Implanted:Qty: 1 on 09/14/2023 by Antonietta Morales MD at [facility] Other - see comments N/A: Sternum [employer] 115.104. 06 / / [employer] Screw Bone Slf Drl Full Thread Locking 3.5x18mm Ti 100.035.18 - [id number] Implanted:Qty: 12 on 09/14/2023 by Antonietta Morales MD at [facility] Other - see comments N/A: Sternum [employer] 100.035. 18 / / [employer] Screw Bone Slf Drl Full Thread Locking 3.5x16mm Ti 100.035.16 - [id number] Implanted:Qty: 10 on 09/14/2023 by Antonietta Morales MD at [facility] Other - see comments N/A: Sternum [employer] 100.035. 16 / / [employer] Plate Bone Low Profile 4 Hole Box Sternum Ti 115.103.04 - [id number] Implanted:Qty: 1 on 09/14/2023 by Antonietta Morales MD at [facility] Other - see comments N/A: Sternum [employer] 115.103. 04 / / [employer]o [employer] Gelweave 30mm 30cm Suture Retention Unique Hydrolyzable Abdomen [id number] - S20... - [id number] Implanted:Qty: 1 on 09/14/2023 by Antonietta Morales MD at [facility] N/A: Asending Aorta [employer] 04/23/2026 [id number] / 20... / [id number] Procedures Procedure Name Priority Date/Time Associated [...] hypertension PSA SCREEN Routine 11/26/2023 7:27 AM INSOLE CEMENTER Benign prostatic hyperplasia with lower urinary tract [...] was last reviewed 2021. Testing performed by: [facility], [address] [place] [address], [place]., [address] Blood 03/28/2025 3:24 PM CDT 03/28/2025 3:42 PM CDT us Tyler Reagan MD LAB BLOOD ORDERABLES Final Resul t [facility] [address] [facility] Department [place] [address] * Differential, auto (03/28/2025 3:24 PM CDT) Neutrophil abs 4.13 1.50 - 6.50 K/cumm Comment:Testing performed by : [address] [address] Imm gran abs 0.02 0.00 - 0.10 K/cumm ELIZABETH Comment:Testing performed by : [address] [address] Lymphocyte abs 1.90 0.80 - 3.30 K/cumm EL[facility]ETH Comment:Testing performed by : [address] [address] Monocyte abs 0.66 0.20 - 0.80 K/cumm EL[facility]ETH Comment:Testing performed by : [address] [address] Eosinophil abs 0.25 0.00 - 0.50 K/cumm [facility]ETH Comment:Testing performed by : [address] [address] Basophil abs 0.06 0.00 - 0.10 K/cumm [facility]ETH Comment:Testing performed by : [address] [address] Neutrophil pct 58.7 % [facility] Comment: Interpretive Data Percent cell count reference ranges are not reported, since discordance with absolute values may lead to misinterpretation of CBC data. Current Interpretive Data was last revised on 2018. Testing performed by: [address] [address] Imm gran pct 0.3 % [facility]ETH Comment: Interpretive Data Percent cell count reference ranges are not reported, since discordance with absolute values may lead to misinterpretation of CBC data. Current Interpretive Data was last revised on 2018. Testing performed by: [address] [address] Lymphocyte pct 27.1 % [facility]ETH Comment: Interpretive Data Percent cell count reference ranges are not reported, since discordance with absolute values may lead to misinterpretation of CBC data. Current Interpretive Data was last revised on 2018. Testing performed by: [address] [address] Monocyte pct 9.4 % [facility]ETH Comment: Interpretive Data Percent cell count reference ranges are not reported, since discordance with absolute values may lead to misinterpretation of CBC data. Current Interpretive Data was last revised on 2018. Testing performed by: [address] [address] Eosinophil pct 3.6 % EL[facility]ETH Comment: Interpretive Data Percent cell count reference ranges are not reported, since discordance with absolute values may lead to misinterpretation of CBC data. Current Interpretive Data was last revised on 2018. Testing performed by: [address] [address] Basophil pct 0.9 % [facility]ETH Comment: Interpretive Data Percent cell count reference ranges are not reported, since discordance with absolute values may lead to misinterpretation of CBC data. Current Interpretive Data was last revised on 2018. Testing performed by: [address] [address] Blood 03/28/2025 3:24 PM CDT 03/28/2025 3:24 PM CDT us Tyler Reagan MD LAB BLOOD ORDERABLES Final Resul t [facility] [address] [facility] Department [place] [address] * (ABNORMAL) CBC with auto differential (03/28/2025 3:24 PM CDT) WBC 7.02 3.80 - 9.90 K/cumm Comment:Testing performed by : [address] [address] Hgb 13.4 13.0 - 17.5 g/dL [facility] Comment:Testing performed by : [address] [address] Hct 42.9 38.9 - 50.3 % [facility]ETH Comment:Testing performed by : [address] [address] Plt 209 150 - 400 K/cumm [facility]HN Comment:Testing performed by : [address] [address] MPV 8.9(L) 9.1 - 12.3 fL [facility]ETH Comment:Testing performed by : [address] [address] RBC 5.11 4.30 - 5.80 M/cumm EL[facility]ETH Comment:Testing performed by : [address] [address] MCV 84.0 81.3 - 96.4 fL [facility]ETH Comment:Testing performed by : [address] [address] MCH 26.2(L) 27.1 - 33.3 pg [facility]ETH Comment:Testing performed by : [address] [address] MCHC 31.2(L) 32.3 - 35.7 g/dL [facility]ETH Comment:Testing performed by : [address] [address] RDW CV 17.8(H) 11.1 - 14.9 % [facility]ETH Comment:Testing performed by : [address] [address] RDW SD 53.8(H) 35.7 - 48.1 fL [facility] Comment:Testing performed by : [address] [address] NRBC abs 0.00 0.00 - 0.01 K/cumm [facility]ETH Comment:Testing performed by : [address] [address] Blood 03/28/2025 3:24 PM CDT 03/28/2025 3:42 PM CDT us Tyler Reagan MD LAB BLOOD ORDERABLES Final Resul t [facility] [address] [facility] Department [place] [address] * Comprehensive metabolic panel (03/28/2025 3:24 PM CDT) Sodium 140 135 - 145 mmol/L Comment:Testing performed by : [address] [address] Potassium, pl 4.0 3.3 - 4.9 mmol/L [facility]ETH Comment:Testing performed by : [address] [address] Chloride 105 97 - 110 mmol/L [facility]ETH Comment:Testing performed by : [address] [address] CO2 23 22 - 32 mmol/L [facility]ETH Comment:Testing performed by : [address] [address] Anion gap 12 2 - 15 mmol/L [facility]ETH Comment:Testing performed by : [address] [address] BUN 19 6 - 25 mg/dL [facility]ETH Comment:Testing performed by : [address] [address] Creatinine 1.10 0.80 - 1.30 mg/dL [facility] Comment:Testing performed by : [address] [address] Glucose 176 70 - 199 mg/dL [facility]ETH Comment: Interpretive Data Fasting glucose >/= 126 [...] was last revised 2022. Testing performed by: [address] [address] Calcium 8.8 8.5 - 10.3 mg/dL [facility] Comment:Testing performed by : [address] [address] Bilirubin, total 0.3 0.1 - 1.2 mg/dL [facility] Comment:Testing performed by : [address] [address] Protein, pl 6.7 6.5 - 8.5 g/dL [facility] Comment:Testing performed by : [address], [place]., [address] Albumin 4.1 3.5 - 5.0 g/dL [facility] Comment:Testing performed by : [address], [place]., [address] Alk phos 66 40 - 130 Units/L [facility] Comment:Testing performed by : [address] [address] ALT 32 7 - 55 Units/L [facility]ETH Comment:Testing performed by : [address] [address] AST 22 10 - 50 Units/L [facility]ETH Comment:Testing performed by : [address] [address] Blood 03/28/2025 3:24 PM CDT 03/28/2025 3:42 PM CDT Tyler Reagan MD LAB BLOOD ORDERABLES Final Resul t [facility] Department [place] [address] * (ABNORMAL) DIABETES EYE EXAM (03/28/2025 11:46 AM CDT) SCRIBED DIABETIC DILATED EYE EXAM Abnormal Historical Provider HEALTH MAINTENANCE Final Result * Imaging Lumbar/Sacral Facet Medial Branch Block Bilateral ([id number]) (03/07/2025 9:50 AM CDT) Narrative RAD_CLARIO_MHB_MHE - 03/07/2025 4:01 PM CDT The images from this study are not interpreted by Radiology. Please refer to the physician's procedure / OR operative note. Karla Gu MD IMG PAIN MGMT PROCEDURES Final R esult Performing Organization Address [facility] Co de Phone Number [email or web address] * POCT glucose (03/07/2025 9:09 AM CDT) Glucose, POC 157 70 - 199 mg/dL Blood 03/07/2025 9:09 AM CDT 03/07/2025 9:09 AM CDT Karla Gu MD LAB POCT ORDERABLES - DEVICE Fin al Result Performing Organization Address [facility] de Phone Number [facility] [address] [place] [address] * Imaging Lumbar/Sacral Facet Medial Branch Block Bilateral ([id number]) (02/21/2025 9:57 AM CDT) Narrative RAYMON_BRIDGET_JOVANIB_MHE - 02/21/2025 12:57 PM CDT The images from this study are not interpreted by Radiology. Please refer to the physician's procedure / OR operative note. Karla Gu MD [facility] PAIN MGMT PROCEDURES Final R esult Performing Organization Address [facility] Co de Phone Number [email or web address] * POCT glucose (02/21/2025 9:15 AM CDT) Glucose, POC 182 70 - 199 mg/dL Blood 02/21/2025 9:15 AM CDT 02/21/2025 9:15 AM CDT Karla Gu MD LAB POCT ORDERABLES - DEVICE Fin al Result Performing Organization Address [facility] Co de Phone Number M[address] [place] [address] * Surgical pathology (02/16/2025 1:55 PM CDT) Tissue (Polyp(s), colon/colorectal, esophageal, gastric) 02/16/2025 1:55 PM CDT Tissue specimen (specimen) (Polyp(s), colon/colorectal, esophageal, gastric) 02/16/2025 2:08 PM CDT Narrative PATHOLOGY [facility] - 02/20/2025 2:55 PM CDT [facility] Department of Pathology [address] [place] [address] Note to Patients: This report may contain [...] : 1960 (Age: 64) Gender: M Address: [address] [place] [address] Hospital #: [id number] Service: Gastro Location: Patient Type: [facility] OUTPATIENT Taken: 02/16/2025 Received: 02/19/2025 Accessioned: 02/19/2025 [...] aggregate. Entirely submitted. Labeled B1. Jar 0. [facility]/02/19/2025 15:01 ANGELO Kwon, PA (ASCP) Microscopic slide review and interpretation for this case was performed at [facility], Department of Surgical Pathology, [address] [facility] [id number], [place] [address] CLIA # [id number] us Konrad Jj MD LAB PATHOLOGY ORDERABLES Final Result PATHOLOGY [facility] * Colonoscopy (02/16/2025 1:40 PM CDT) Anatomical Region Laterality Modality Other Narrative Procedure Note Konrad Jj MD - 02/16/2025 1:40 PM CDT [facility] Patient Name: Danica Quarles Procedure Date: 02/16/2025 1:40 PM Date of : 1960 Admit Type: Outpatient Age: 64 Gender: Male Attending MD: Konrad Jj M.D. Room: [facility] ENDOSCOPY ROOM 06 Note Status: Finalized Procedure: [...] The scope was passed under direct vision.The CF-[id number] colonoscope was introduced through theanus and advanced [...] On: 02/16/2025 1:40 PM Recognized by the [employer] for promoting quality in endoscopy Konrad Jj MD ENDOSCOPY PROCEDURES Lillie l Result * POCT glucose (02/16/2025 1:11 PM CDT) Glucose, POC 122 70 - 199 mg/dL Blood 02/16/2025 1:11 PM CDT 02/16/2025 1:11 PM CDT Konrad Jj MD LAB POCT ORDERABLES - DEV ICE Final Result [facility] [address] Department [place] [address] * POCT hemoglobin A1c (02/05/2025 8:47 AM [...] last revised on 2018. Testing performed by: [address] [address] Triglycerides 666(H) <=149 mg/dL [facility] Comment: Interpretive Data Ages [...] last revised on 2018. Testing performed by: [address] [address] HDL 24(L) >=40 mg/dL [facility] Comment: Interpretive Data Ages [...] last revised on 2018. Testing performed by: [facility], [address] [place] [address]., [address] LDL, calculated See Comment <=129 mg/dL ELIZABETH [...] 3. Varun Mullen et al. SEVERINO Cardiol. 2019February 22;5(5):540-548. doi: 10.1001/[email or web address].2020.0013 Current Interpretive Data was last revised on 2024. Testing performed by: [facility], [address] [place] [address]., [address] Non-HDL Cholesterol 128 mg/dL [facility] Comment: [...] last revised on 2018. Testing performed by: [address] [address] Chol/HDL ratio 6 [facility]ABETH Comment:Testing performed by : [address] [address] Blood 01/29/2025 7:26 AM CDT 01/29/2025 7:36 AM CDT us Tyler Reagan MD LAB BLOOD ORDERABLES Final Resul t Performing Organization Address [facility] Co de Phone Number [address] [place] [address] * Albumin Creatinine Ratio, Urine (03/01/2024 7:49 AM CDT) Albumin Ur 16.3 mg/L Comment: Interpretive Data No reference range established. Current interpretive data was last revised 2019. Testing performed by: [address] [address] Creatinine Ur 96.2 mg/dL [facility]ETH Comment: Interpretive Data No reference range established. Current interpretive data was last revised 2019. Testing performed by: [address] [address] Albumin Creatinine Ratio, Ur 17 1 - 29 mg/g [facility]ETH Comment:Testing performed by : [address] [address] Urine 03/01/2024 7:49 AM CDT 03/01/2024 9:53 AM CDT us Lino Davenport MD LAB URINE ORDERABLES Final R esult Performing Organization Address City/[facility]/ZIP Co de Phone Number [address] [place] [address] * PSA screen (11/26/2023 7:27 AM INSOLE CEMENTER) PSA-Total 2.53 <=5.40 ng/mL [facility]ETH Comment: Interpretive [...] data last revised 22. Testing performed by: [facility], [address] [place] [address]., [address] Blood 11/26/2023 7:27 AM INSOLE CEMENTER 11/26/2023 7:39 AM INSOLE CEMENTER Lion Davenport MD LAB BLOOD ORDERABLES Final R esult [place] [id number] [facility] Department [place] [address] * Hepatitis C antibody (03/26/2020 8:44 AM CDT) Pathologist [facility] Hep C Ab NONREACT NONREACTIVE [facility] Comment: Siemens CentaurXP using COLTON (chemiluminescent immunoassay) technology. NONREACTIVE: Antibodies [...] MICROBIOLOGY - GENERAL O RDERABLES Final Result [facility] [address] [place] [address], [facility] [phone] * DIABETES FOOT EXAM (05/09/2019) Diabetic Foot Exam Unknown us Historical Provider MD HEALTH MAINTENANCE Final Result from Last 3 Months or Most Recently Relevant to Health Maintenance Insurance [facility] [id number] MEDICARE [facility] [id number] Advance Directives For more information, please contact: [phone] Documents on File Type Date Recorded Patient Technology Administrator Expl anation Power of Per Diem 08/30/2023 9:34 AM Advance Directives and Livin g Will 08/25/2023 10:41 AM * Full Code (Latest Code Status on File) Date Activated Date Inactivated Comments 09/14/2023 4:13 PM 09/20/2023 4:11 PM Care Teams Monotype Operator Relationship Specialty Start Date End Date Lino Davenport MD [address] [place] [address] PCP - General Internal Medicine 02/17/19 Madyson Carcamo DPM [address] [facility] [address] [place] [address] Referring Physician Orthopedic Surgery 04/26/19 Jacob Truong MD [address] [place] [address] Referring Physician Ophthalmology 11/12/20 Pietro Estrada MD [address] [facility] [address] [place] [address] Consulting Physician Pulmonary Disease 11/12/20 Raul Cannon MD [address] [facility] [address] [place] [address] Referring Physician Urology 11/12/20 Chay Emmanuel MD [address] [facility] [address] [place] [address] Referring Physician Cardiology 08/03/23 Humble Huerta MD [address] [facility] [address] [place] [address] Consulting Physician Cardiothoracic Surgery 08/03/23 Tyler Reagan MD [address] [facility] [address] [place] [address] Consulting Physician Cardiovascular Disease 09/15/23 John Vargas OD [address] [place] [address] Optometry 03/08/24 Antonietta Morales MD [address] [facility] [address] [place] [address] Consulting Physician Cardiothoracic Surgery 03/08/24 Louis Sevilla MD [address] [facility] 200 [place] [address] Referring Physician Hematology 05/15/24 Karla Gu MD [address] [facility] [address] [place] [address] Consulting Physician Pain Management 06/08/24
--- OUTSIDE RECORDS SUMMARY | 2025-05-08 13:41 | XMS_ITS | Encounter Summary ---
Author Organization [facility] Facility Care Team Providers Care Ict Sales Assistant Name Role Phone Deepthi Davenport MD Primary Care Provider [phone] Raleigh Villarreal MD Unavailable [phone] Marychuy Pires MD Unavailable [phone] Madyson Carcamo DPM Unavailable [phone] Jacob Truong MD Unavailable Pietro Estrada MD Unavailable [phone] Raul Cannon MD Unavailable [phone] Lois East MD Unavailable [phone] Chay Emmanuel MD Unavailable [phone] Humble Huerta MD Unavailable [phone] Tyler Reagan MD Unavailable John Vargas OD Unavailable [phone] Antonietta Morales MD Unavailable [phone] Louis Sevilla MD Unavailable [phone] Karla Gu MD Unavailable Encounter Details Date Type Department Care Team (Latest Contact Info) Description 01/24/2014 Orders Only [facility] CLINCONV Provider, MD Thor [address] [place] [address] Social History Tobacco Use Types Packs/Day Years Used Date Smoking Tobacco: Never Assessed Sex and Gender Information Value Date Recorded Sex Assigned at Not on file Legal Sex Male 7:57 PM MARINE PROPULSION TECHNICIAN Gender Identity Male 10/09/2021 7:46 AM MARINE PROPULSION TECHNICIAN Sexual Orientation Straight 10/09/2021 7: 46 AM MARINE PROPULSION TECHNICIAN documented as of this encounter Plan of Treatment Not on file documented as of this encounter Procedures Procedure Name Priority Date/Time Associated Diagnosis Comments CARDIOLOGY REPORT 09/01/2016 12: 00 AM MARINE PROPULSION TECHNICIAN documented in this encounter Results * CARDIOLOGY REPORT (09/01/2016 12:00 AM MARINE PROPULSION TECHNICIAN) Anatomical Region Laterality Modality Other Narrative 09/01/2016 12:00 AM MARINE PROPULSION TECHNICIAN Ordered by an unspecified provider. us Historical Provider CV CARDIAC SERVICES PROCE EMILY Final Result documented in this encounter Visit Diagnoses Not on filedocumented in this encounter Additional Health Concerns Infection Onset Date Last Indicated Resolved Time COVID: Suspected 11/25/2021 11/25/2021 11/25/2021 10:00 AM MARINE PROPULSION TECHNICIAN documented as of this encounter Care Teams Ict Sales Assistant Relationship Specialty Start Date End Date Deepthi Davenport MD [address] [place] [address] PCP - General Internal Medicine 02/17/19 Raleigh Villarreal MD [address] [place] [address] Referring Physician Cardiovascular Disease 04/26/1911/26/21 Marychuy Pirse MD [address] [place] [address] Endocrinology 04/26/19 03/07/24 Madyson Carcamo DPM [address] [facility] [address] [place] [address] Referring Physician Orthopedic Surgery 04/26/19 Jacob Truong MD [address] [place] [address] Referring Physician Ophthalmology 11/12/20 Pietro Estrada MD [address] [facility] [address] [place] [address] Consulting Physician Pulmonary Disease 11/12/20 Raul Cannon MD [address] [facility] [address] [place] [address] Referring Physician Urology 11/12/20 Lois East MD [address] [facility] [address] [place] [address] Consulting Physician Cardiology 11/27/21 12/01/23 Chay Emmanuel MD [address] [facility] [address] [place], [place] [address] Referring Physician Cardiology 08/03/23 Humble Huerta MD [address] [facility] [address] [place] [address] Consulting Physician Cardiothoracic Surgery 08/03/23 Tyler Reagan MD [address] [facility] [address] [place] [address] Consulting Physician Cardiovascular Disease 09/15/23 John Vargas OD [address] [place] [address] Optometry 03/08/24 Antonietta Morales MD [address] [facility] [address] [place] [address] Consulting Physician Cardiothoracic Surgery 03/08/24 Louis Sevilla MD [address] [facility] [address] [place] [address] Referring Physician Hematology 05/15/24 Karla Gu MD [address] [facility] [address] [place] [address] Consulting Physician Pain Management 06/08/24 documented as of this encounter
--- OUTSIDE RECORDS SUMMARY | 2025-05-08 13:41 | XMS_ITS | Encounter Summary ---
Author Organization [facility] Facility Care Team Providers Care Patient Transportation Driver Name Role Phone Deepthi Davenport MD Primary Care Provider [phone] Raleigh Villarreal MD Unavailable [phone] Marychuy Pires MD Unavailable [phone] Madyson Carcamo DPM Unavailable [phone] Jacob Truong MD Unavailable [phone] Pietro Estrada MD Unavailable [phone] Raul Cannon MD Unavailable [phone] Lois East MD Unavailable [phone] Chay Emmanuel MD Unavailable [phone] Humble Huerta MD Unavailable [phone] Tyler Reagan MD Unavailable John Vargas OD Unavailable [phone] Antonietta Morales MD Unavailable [phone] Louis Sevilla MD Unavailable [phone] Karla Gu MD Unavailable Encounter Details Date Type Department Care Team (Latest Contact Info) Description 07/01/2016 Orders Only [facility] CLINCONV ProviderThor MD [address] [place] [address] Social History Tobacco Use Types Packs/Day Years Used Date Smoking Tobacco: Never Assessed Sex and Gender Information Value Date Recorded Sex Assigned at Not on file Legal Sex Male 7:57 PM SECOND OFFICER Gender Identity Male 10/09/2021 7:46 AM SECOND OFFICER Sexual Orientation Straight 10/09/2021 7: 46 AM SECOND OFFICER documented as of this encounter Plan of Treatment Not on file documented as of this encounter Procedures Procedure Name Priority Date/Time Associated Diagnosis Comments CARDIOLOGY REPORT 07/03/2016 12: 00 AM CDT documented in this encounter Results * CARDIOLOGY REPORT (07/03/2016 12:00 AM CDT) Anatomical Region Laterality Modality Other Narrative 07/03/2016 12:00 AM CDT Ordered by an unspecified provider. us Historical Provider CV CARDIAC SERVICES PILAR DIAZ Final Result documented in this encounter Visit Diagnoses Not on filedocumented in this encounter Additional Health Concerns Infection Onset Date Last Indicated Resolved Time COVID: Suspected 11/25/2021 11/25/2021 11/25/2021 10:00 AM SECOND OFFICER documented as of this encounter Care Teams Patient Transportation Driver Relationship Specialty Start Date End Date Deepthi Davenport MD [address] [place] [address] PCP - General Internal Medicine 02/17/19 Raleigh Villarreal MD [address] [place] [address] Referring Physician Cardiovascular Disease 04/26/1911/26/21 Marychuy Pires MD [address] [place] [address] Endocrinology 04/26/19 03/07/24 Madyson Carcamo DPM [address] [facility] [address] [place] [address] Referring Physician Orthopedic Surgery 04/26/19 Jacob Truong MD [address] [place] [address] Referring Physician Ophthalmology 11/12/20 Pietro Estrada MD [address] [facility] [address] [place] [address] Consulting Physician Pulmonary Disease 11/12/20 Raul Cannon MD [address] [facility] [address] [place] [address] Referring Physician Urology 11/12/20 Lois East MD [address] [facility] [address] [place] [address] Consulting Physician Cardiology 11/27/21 12/01/23 Chay Emmanuel MD [address] [facility] [address] [place], [place] [address] Referring Physician Cardiology 08/03/23 Humble Huerta MD [address] [facility] [address] [place], [place] [address] Consulting Physician Cardiothoracic Surgery 08/03/23 Tyler Reagan MD [address] [facility] [address] [place] [address] Consulting Physician Cardiovascular Disease 09/15/23 John Vargas OD [address] [place] [address] Optometry 5/15/24 Antonietta Morales MD [address] [facility] [address] [place] [address] Consulting Physician Cardiothoracic Surgery 03/08/24 Louis Sevilla MD [address] [facility] [address] [place] [address] Referring Physician Hematology 05/15/24 Karla Gu MD [address] [facility], [facility] [address] [place] [address] Consulting Physician Pain Management 06/08/24 documented as of this encounter
--- OUTSIDE RECORDS SUMMARY | 2025-05-08 13:41 | XMS_ITS | Encounter Summary ---
Author Organization [facility] Facility Care Team Providers Care Manager Action Name Role Phone Deepthi Davenport MD Primary Care Provider [phone] Raleigh Villarreal MD Unavailable [phone] Marychuy Pires MD Unavailable [phone] Madyson Carcamo DPM Unavailable [phone] Jacob Truong MD Unavailable [phone] Pietro Estrada MD Unavailable [phone] Raul Cannon MD Unavailable [phone] Lois East MD Unavailable [phone] Chay Emmanuel MD Unavailable [phone] Humble Huerta MD Unavailable [phone] Tyler Reagan MD Unavailable John Vargas OD Unavailable +[phone] Antonietta Morales MD Unavailable [phone] Louis Sevilla MD Unavailable [phone] Karla Gu MD Unavailable Encounter Details Date Type Department Care Team (Latest Contact Info) Description 06/10/2016 Orders Only [facility] CLINCONV Provider, MD Thor [address] [place] [address] Social History Tobacco Use Types Packs/Day Years Used Date Smoking Tobacco: Never Assessed Sex and Gender Information Value Date Recorded Sex Assigned at Not on file Legal Sex Male 7:57 PM LOAN ASSOCIATE Gender Identity Male 10/09/2021 7:46 AM LOAN ASSOCIATE Sexual Orientation Straight 10/09/2021 7: 46 AM LOAN ASSOCIATE documented as of this encounter Plan of Treatment Not on file documented as of this encounter Procedures Procedure Name Priority Date/Time Associated Diagnosis Comments PROCEDURE - RESULT 06/10/2016 12 :00 AM CDT documented in this encounter Results * PROCEDURE - RESULT (06/10/2016 12:00 AM CDT) Narrative 06/10/2016 12:00 AM CDT Ordered by an unspecified provider. us Historical Provider Final Res ult documented in this encounter Visit Diagnoses Not on filedocumented in this encounter Additional Health Concerns Infection Onset Date Last Indicated Resolved Time COVID: Suspected 11/25/2021 11/25/2021 11/25/2021 10:00 AM LOAN ASSOCIATE documented as of this encounter Care Teams Manager Action Relationship Specialty Start Date End Date Deepthi Davenport MD [address] [place] [address] PCP - General Internal Medicine 02/17/19 Raleigh Villarreal MD [address] [place] [address] Referring Physician Cardiovascular Disease 04/26/1911/26/21 Marychuy Pires MD [address] [place] [address] Endocrinology 04/26/19 03/07/24 Madyson Carcamo DPM [address] [address] Referring Physician Orthopedic Surgery 04/26/19 Jacob Truong MD [address] [place] [address] Referring Physician Ophthalmology 11/12/20 Pietro Estrada MD [address] [facility] [address] [place] [address] Consulting Physician Pulmonary Disease 11/12/20 Raul Cannon MD [address] [facility] [address] [place] [address] Referring Physician Urology 11/12/20 Lois East MD [address] [facility] [address] [place] [address] Consulting Physician Cardiology 11/27/21 12/01/23 Chay Emmanuel MD [address] [place], [place] [address] Referring Physician Cardiology 08/03/23 Humble Huerta MD [address] [place] [address] Consulting Physician Cardiothoracic Surgery 08/03/23 Tyler Reagan MD [address] [place] [address] Consulting Physician Cardiovascular Disease 09/15/23 John Vargas OD [address] [place] [address] Optometry 03/08/24 Antonietta Morales MD [address] [facility] [address] [place] [address] Consulting Physician Cardiothoracic Surgery 03/08/24 Louis Sevilla MD [address] [facility] [address] [place] [address] Referring Physician Hematology 05/15/24 Karla Gu MD [address] [facility], [facility] [address] [place] [address] Consulting Physician Pain Management 06/08/24 documented as of this encounter
--- OUTSIDE RECORDS SUMMARY | 2025-05-08 13:41 | XMS_ITS | Data Portability ---
Author Organization [place] - [facility], Main Office Address [address] [place] [address] Care Team Providers Care Crystal Grower Name Role Phone MISSY HCUNG Primary Care Provider [phone] Assessment No assessment recorded. Plan of Treatment Reminders Order Date Submit Date Provider Last Modified By Organization Details Last Modified Time Details Appointments None recorded. Lab None recorded. Referral endocrinolo gy referral 2022 023 [email or web address] Namita Pemberton MD, [address],, [address], [address], 3 09:33:02 Procedures None recorded. Surgeries None recorded. Imaging None recorded. Medication Orders folic acid 1 mg tablet 2022 023 [facility]2510, [address] [place], [address], 3 10:02:48 Vascepa 1 gram capsule 2022 023 [facility] #2510, [address] [place], [address], 3 10:02:47 rosuvastati n 20 mg tablet 2022 023 [facility] #2510, [address] [place], [address], 3 10:02:46 Farxiga 10 mg tablet 2022 023 [facility] #2510, [address] [place], [address], 3 10:02:47 metformin 1,000 mg tablet 2022 023 [facility] [address] [place], [address], 3 10:02:46 Rybelsus 7 mg tablet 2022 023 [facility] [address] [place], [address], 3 10:02:47 Tresiba FlexTouch U-200 insulin 200 unit/mL (3 mL) subcutaneou s pen 2022 023 [facility] [address] [place], [address], 3 10:02:47 glimepiride 2 mg tablet 2022 023 [facility] [address] [place], [address], 3 10:02:46 Jatenzo 237 mg capsule 2022 023 [facility] [address] [place], [address], 3 10:02:52 Patient TargetsNo targets recorded. Patient InstructionsNo instructions recorded. Reason for Referral Endocrinology Referral for W ell controlled type 2 diabetes mellitus Referring Physician: Marychuy Pires, Endocrinology, Encounter Date: 07/26/2023 Results Created Date Observation Date Name Description Value Unit Range Abnormal Flag Note LastModifiedBy Organization Detail LastModifiedTime Result Notes None recorded. Problems Name Problem SNOMED Code Status Onset Date Resolution Date Notes Provider Name and Address Organization Details Recorded Time Vitamin B12 deficiency (non anemic) 75649987 Active 2022 Marychuy Pires MD [address] [place] [address], [place] [address], [place], [address] , [facility] 3 10:00:16 Mixed hyperlipidemi a 425658849 Active 2021 Not Available [facility] 3 04:46:07 Hypertensive disorder 10039915 Active 2018 Not Available [facility] 3 04:46:07 Type 2 diabetes mellitus 51750837 Active 2018 Not Available [facility] 3 04:46:07 Well controlled type 2 diabetes mellitus 917968440 Active 2021 Not Available [facility] 3 04:46:07 Hypogonadism 72584814 Active 2018 Not Available [facility] 3 04:46:07 Male hypogonadism 26085533 Active 2021 Not Available [facility] 3 04:46:07 Hyperlipidemi a 24246053 Active 2018 Not Available [facility] 3 04:46:07 Problem Notes None recorded. Procedures Surgical History Date Name Laterality Status Provider Name and Address Organization Details Recorded Time procedure on urethra completed Not Available [facility] 12/23/2022 04:41:31 Rotator cuff surgery completed Not Available [facility] 12/23/2022 04:41:31 Imaging Results None recorded. Procedure Notes None recorded. Medical Equipment None Reported. Allergies Allergen ID Allergen Name Allergen Category Reaction Reaction Severity Criticality Documentation Date Start Date Code Code System Note Provider Name and Address Organization Details Recorded Time 6977 niacin medicatio n Not available Not available Not available 12/23/2022 7393 RxNorm Not Available [facility] 3 04:52:06 6978 Iodinated contrast media (substanc e) medicatio n Not available Not available Not available 12/23/2022 88764 2004 SNOMED Not Available [facility] 3 04:52:06 Medications Name Sig Start Date Stop Date Status Note LastModified by Organization Details LastModified Time losartan 50 mg tablet active Not Available Not Available No t Available latanoprost 0.005 % eye drops INSTILL 1 DROP INTO BOTH EYES AT BEDTIME active Not Available Not Available No t Available doxycycline hyclate 100 mg capsule TAKE 1 CAPSULE BY MOUTH TWICE A DAY FOR 7 DAYS active Not Available Not Available No t Available niacin ER 1,000 mg tablet,exte nded release 24 hr TAKE 1 TABLET (1,000 MG TOTAL) BY MOUTH NIGHTLY active Not Available Not Available No t Available atorvastati n 10 mg tablet TAKE 1 TABLET BY MOUTH EVERY DAY 11/05 completed Not Available Not Available Not Available azithromyci n 250 mg tablet TAKE 2 TABLETS BY MOUTH TODAY, THEN TAKE 1 TABLET DAILY FOR 4 DAYS 07/13 completed Not Available Not Available Not Available ofloxacin 0.3 % eye drops 04/05 completed Not Available Not Available Not Available tizanidine 4 mg tablet TAKE 1 TABLET (4 MG TOTAL) BY MOUTH NIGHTLY NEEDED FOR MUSCLE SPASMS active Not Available Not Available No t Available benzonatate 200 mg capsule TAKE ONE CAPSULE BY MOUTH EVERY 8 HOURS NEEDED FOR COUGH 12/15 completed Not Available Not Available Not Available meloxicam 15 mg tablet TAKE 1/2 TABLETS BY MOUTH EVERY 12 HRS NEEDED FOR PAIN active Not Available Not Available No t Available prednisone 20 mg tablet TAKE 1 TAB TWICE DAILY THE DAY OF PROCEDURE AND 1 TAB TWICE DAILY DAY OF PROCEDURE active Not Available Not Available No t Available fluorouraci l 5 % topical cream APPLY TO SCALP TWICE A DAY FOR 4 WEEKS 09/23 completed Not Available Not Available Not Available glimepiride 2 mg tablet TAKE 1 TABLET BY MOUTH TWICE DAILY IF BLOOD SUGAR IS GREATER THAN 180 active Not Available Not Available No t Available glimepiride 1 mg tablet PLEASE SEE ATTACHED FOR DETAILED DIRECTION S active Not Available Not Available No t Available ketorolac 10 mg tablet TAKE 1 TABLET BY MOUTH EVERY 6 HOURS NEEDED FOR PAIN 07/26 completed Not Available Not Available Not Available BD Regular Bevel [place] 18 gauge x 1 USE TO WITHDRAW TESTOSTER ONE DIRECTED active Not Available Not Available No t Available amoxicillin 875 mg tablet TAKE 1 TABLET BY MOUTH TWICE A DAY FOR 10 DAYS 07/13 completed Not Available Not Available Not Available Hypodermic [place] 18 gauge x 1 1/2 WITHDRAW TESTOSTER ONE ONCE WEEKLY active Not Available Not Available No t Available tamsulosin 0.4 mg capsule TAKE 1 CAPSULE BY MOUTH EVERY DAY active Not Available Not Available No t Available benzonatate 100 mg capsule TAKE 1 CAPSULE BY MOUTH THREE TIMES A DAY NEEDED FOR COUGH 07/26 completed Not Available Not Available Not Available gemfibrozil 600 mg tablet TAKE 1 TABLET BY MOUTH TWICE A DAY 07/26 completed Not Available Not Available Not Available cephalexin 500 mg capsule TAKE 1 CAPSULE BY MOUTH 2 TIMES DAILY FOR 5 DAYS. 07/13 completed Not Available Not Available Not Available metformin 1,000 mg tablet TAKE 1 TABLET BY MOUTH TWICE A DAY 2022 active Not Available Not Available Not Avai lable neomycin-po lymyxin-dex ameth 3.5 mg/mL-10,00 0 unit/mL-0.1 % eye drops INSTILL 1 DROP INTO LEFT EYE FOUR TIMES A DAY. START DROPS AFTER SURGERY active Not Available Not Available No t Available prednisone 50 mg tablet PLEASE SEE ATTACHED FOR DETAILED DIRECTION S active Not Available Not Available No t Available losartan 25 mg tablet TAKE 1 TABLET BY MOUTH EVERY DAY active Not Available Not Available No t Available BD Luer-Venu Syringe 3 mL 25 gauge x 1 USE TO INJECT TESTOSTER ONE ONCE WEEKLY active Not Available Not Available No t Available magnesium 500 mg (as magnesium oxide) tablet TAKE 1 TABLET BY MOUTH EVERY DAY 07/26 completed Not Available Not Available Not Available diclofenac sodium 75 mg tablet,gabbi yed release TAKE 1 TABLET BY MOUTH TWICE A DAY 12/15 completed Not Available Not Available Not Available folic acid 1 mg tablet TAKE 1 TABLET BY MOUTH EVERY DAY IN THE MORNING active Not Available Not Available No t Available mupirocin 2 % topical ointment APPLY TO SPOT TWICE A DAY active Not Available Not Available No t Available tamsulosin ER 0.4 mg capsule,ext ended release Take 1 capsule every day by oral route. 07/16 completed Not Available Not Available Not Available metoprolol succinate ER 25 mg tablet,exte nded release 24 hr Take 1 tablet every day by oral route. 07/18 completed Not Available Not Available Not Available testosteron e cypionate 200 mg/mL intramuscul ar oil INJECT 1 ML INTRAMUSC ULARLY EVERY OTHER WEEK. active Not Available Not Available No t Available zolpidem 10 mg tablet TAKE 1 TABLET BY MOUTH EVERY DAY AT BEDTIME NEEDED FOR SLEEP active Not Available Not Available No t Available methylpredn isolone 4 mg tablets in a dose pack TAKE 6 TABLETS ON DAY 1 DIRECTED ON PACKAGE AND DECREASE BY 1 TAB EACH DAY FOR A TOTAL OF 6 DAYS 07/26 completed Not Available Not Available Not Available doxycycline hyclate 100 mg tablet TAKE 1 TABLET BY MOUTH TWICE A DAY FOR 10 DAYS 07/26 completed Not Available Not Available Not Available amoxicillin 875 mg-potassiu m clavulanate 125 mg tablet TAKE 1 TABLET BY MOUTH 2 TIMES DAILY FOR 7 DAYS. active Not Available Not Available No t Available Low Dose Aspirin 81 mg tablet,gabbi yed release Take 1 tablet every day by oral route. 2017 active Not Available Not Available Not Avai lable rosuvastati n 20 mg tablet TAKE 1 TABLET BY MOUTH EVERY DAY active Not Available Not Available No t Available metoprolol tartrate 25 mg tablet TAKE 1 TABLET BY MOUTH TWICE A DAY active Not Available Not Available No t Available metformin ER 1,000 mg tablet,exte nded release 24hr (osmotic) Take 1 tablet every day by oral route with meals for 90 days. active Not Available Not Available No t Available fenofibrate micronized 145 mg tablet Take 1 tablet every day by oral route. 07/18 completed Not Available Not Available Not Available tizanidine 4 mg capsule 04/05 completed Not Available Not Available Not Available fenofibrate 160 mg tablet TAKE 1 TABLET BY MOUTH EVERY DAY 09/23 completed Not Available Not Available Not Available metformin ER 1,000 mg tablet,exte nded release 24 hr Take 1 tablet twice a day by oral route. 07/16 completed Not Available Not Available Not Available magnesium 01/09 completed Not Available Not Available Not Available BD Ultra-Fine Short Pen Needle 31 gauge x 03/09 active Not Available Not Available Not Available OneTouch UltraMini kit USE DIRECTED. active Not Available Not Available No t Available fenofibrate nanocrystal lized 145 mg tablet 07/18 completed Not Available Not Available Not Available OneTouch Delica Lancets 33 gauge USE TO TEST SUGARS TWICE A DAY active Not Available Not Available No t Available metoprolol succ 50 mg-hydrochl orothiazide 12.5 mg tablet,ext. rel 24 hr Take 1 tablet every day by oral route. 09/09 completed Not Available Not Available Not Available Accu-Chek Zoey active Not Available Not Available Not Available Banophen 50 mg capsule TAKE 1 CAPSULE BY MOUTH 1 HOUR PRIOR TO PROCEDURE active Not Available Not Available No t Available testosteron e 1.62 % (40.5 mg/2.5 gram) transdermal gel packet Apply 1 packet every day by topical route for 90 days. 07/26 completed Not Available Not Available Not Available icosapent ethyl 1 gram capsule TAKE 2 CAPSULES BY MOUTH TWICE A DAY WITH MEALS active Not Available Not Available No t Available alogliptin 12.5 mg-metformi n 500 mg tablet Take 1 tablet every day by oral route. 08/11 completed Not Available Not Available Not Available Farxiga 10 mg tablet TAKE 1 TABLET BY MOUTH EVERY DAY IN THE MORNING 2022 active Not Available Not Available Not Avai lable Farxiga 5 mg tablet Take 1 tablet every day by oral route in the morning for 14 days. 09/09 completed Not Available Not Available Not Available Tresiba FlexTouch U-200 insulin 200 unit/mL (3 mL) subcutaneou s pen INJECT 72 UNITS SUBCUTANE OUSLY EVERY DAY 2022 active Not Available Not Available Not Avai lable Tresiba FlexTouch U-100 insulin 100 unit/mL (3 mL) subcutaneou s pen Inject 60 units by subcutane ous route at bedtime. 07/18 completed Not Available Not Available Not Available Accu-Chek Guide test strips USE TO TEST BLOOD SUGAR ONCE DAILY active Not Available Not Available No t Available BD Ultra-Fine Micro Pen Needle 32 gauge x 1/4 USE TO INJECT TRESIBA AT BEDTIME active Not Available Not Available No t Available Bydureon BCise 2 mg/0.85 mL subcutaneou s auto-inject or INJECT 2 MG EVERY WEEK BY SUBCUTANE OUS ROUTE WITH MEALS active Not Available Not Available No t Available Ozempic 0.25 mg or 0.5 mg (2 mg/1.5 mL) subcutaneou s pen injector inject 0.5 mg SQ once weekly with largest meal of that day 07/16 completed Not Available Not Available Not Available OneTouch Ultra Blue Test Strip USE TO TEST DAILY active Not Available Not Available No t Available Accu-Chek Fastclix Lancet Drum active Not Available Not Available Not Available Rybelsus 7 mg tablet TAKE 1 TABLET BY MOUTH EVERY DAY IN THE MORNING 2022 active Not Available Not Available Not Avai labsahil Jatenzo 237 mg capsule TAKE 1 CAPSULE ONCE A DAY BY ORAL ROUTE BEFORE BREAKFAST FOR 90 DAYS. 2022 active Not Available Not Available Not Avai lable ID NOW COVID-19 Test Kit TEST DIRECTED TODAY 07/26 completed Not Available Not Available Not Available Fluzone Quad (PF) 60 mcg (15 mcg x 4)/0.5 mL IM syringe [facility]ARM[facility] 07/26 completed Not Available Not Available Not Available Vitals Date Recorded Body mass index (BMI) Body height Oxygen saturation Oxygen saturation in Arterial blood by Pulse oximetry Heart rate Body temperature Body weight Systolic And Diastolic Provider Name and Address Organization Details Last Updated DateTime 3 39.6 kg/m2 180.34 cm 92 % 92 % 65 /min 97.6 [degF] 703031. 23 g 120/80 mm[Hg] Not Available [facility] 3 04:44:29 Date Recorded Body mass index (BMI) Body height Oxygen saturation Oxygen saturation in Arterial blood by Pulse oximetry Heart rate Body temperature Body weight Systolic And Diastolic Provider Name and Address Organization Details Last Updated DateTime 1 38.8 kg/m2 180.34 cm 92 % 92 % 65 /min 98.2 [degF] 618422. 68 g 112/64 mm[Hg] Not Available [facility] 3 04:44:29 Date Recorded Body mass index (BMI) Body height Oxygen saturation Oxygen saturation in Arterial blood by Pulse oximetry Heart rate Body temperature Body weight Systolic And Diastolic Provider Name and Address Organization Details Last Updated DateTime 2 40.1 kg/m2 180.34 cm 98 % 98 % 68 /min 98 [degF] 684761. 73 g 120/70 mm[Hg] Not Available [facility] 3 04:44:29 Date Recorded Body height Body mass index (BMI) Body weight Body temperature Respiratory rate Heart rate Systolic And Diastolic Provider Name and Address Organization Details Last Updated DateTime 3 180.34 cm 40.2 kg/m2 184283. 04 g 97.8 [degF] 16 /min 66 /min 135/81 mm[Hg] Hayley Noriega RN [place] - [facility] 08:58:30 Social History Question Answer Notes LastModified by [employer] Details LastModified Time Tobacco Smoking Status Never Smoker ELIAS Santos, [facility] 07/26/2023 08:53:33 What Is Your Level Of Caffeine Consumption? Moderate [id number] Information not available 12/23/2022 How Much Tobacco Do You Chew? None [id number] Information not available 12/23/2022 In The 14 Days Before Symptom Onset, Have You Had Close Contact With A Laboratory-confirm ed COVID-19 While That Case Was Ill? No Information n ot available 07/26/2023 In The 14 Days Before Symptom Onset, Have You Had Close Contact With A Person Who Is Under Investigation For COVID-19 While That Person Was Ill? No Information not available 07/26/2023 Which Illicit Or Recreational Drugs Have You Used? None Information not available 07/26/2023 Sex: Male Functional Status Question Answer Note LastModified by [employer] Details LastModified Time What is your level of alcohol consumption? Occasional [id number] Information not available 12/23/2022 Do you or have you ever used e-cigarettes or vape? Never used electronic cigarettes Information not available 07/26/2023 Mental Status None recorded. Family History Nothing Reported. Medical History Condition Response DIABETES, TYPE Y HAVE YOU BEEN HOSPITALIZED OR SEEN IN [facility] IN THE PAST YEAR ? Y HYPERTENSION Y HIGH CHOLESTEROL / HYPERLIPIDEMIA Y Past Encounters Encounter ID Performer Location Encounter Start Date Encounter Closed Date Diagnosis/Indication Diagnosis SNOMED-CT Code Diagnosis ICD10 Code Diagnosis Note [id number] Marychuy Pires MD [facility] [address] [place] [address] 02/04/2021 00:00:00 02/04/2021 10:26:17 [id number] Marychuy Pires MD [facility] [address] [place] [address] 09/23/2021 00:00:00 09/23/2021 12:28:37 [id number] [facility] [address] [place] [id number] 07/13/2022 00:00:00 07/13/2022 10:15:08 [id number] Marychuy Pires MD [facility] Ottoniel Huber [address] [place] [id number] 11/10/2022 00:00:00 11/10/2022 10:40:44 [id number] Marychuy Pires MD [facility] Ottoniel Huber [address] [place] [id number] 07/26/2023 08:48:43 07/26/2023 09:33:02 Well controlled type 2 diabetes mellitus 632813839 E11.9 A1C of 6.5% down from 6.9%- continue on tresiba 72 units at bedtime and continue with self titration if indicated to maintain fastin glucose 90-130 mg/dL. Continue rybelsus and metformin for insulin sensitizat ion. Continue glimepirid e scale and farxiga as patient tolerating well. Discussed carb counting and how to read food labels. Recommende d patient to utilize the diabetesfo Dentalink[employer].Estech from the ADA website to help with food preparatio n as this presents ideal carb content per meal so this will make carb counting much easier for patient. Recommende d he incorporat e natural insulin hogshead hand s such as pears, apples, cinnamon, belén and sweet potatoes to help mobilize his endogenous insulin. Recommende d up to 150 minutes of moderate level activity/e xercise weekly. Refer to endocrinol ogy per patient request. Male hypogonadism 710159 06 E29.1 Testostero ne levels high on lowest dose jatenzo- recommend he drop his dosing to once daily- H/H levels in range but borderline - overall having more energy with intermitte nt fatigue. He is aware to follow up with PCP or new endo to have continued monitoring of CBC, CMP along with fasting testostero ne to monitor for any signs of secondary erythrocyt osis or enhanced transamini tis. Patient is aware of risks and benefits of therapy as noted above and wishes to proceed with therapy. Mixed hyperlipidemia 267 195833 E78.2 TG dropped in half- continue on vascepa and statin therapy. Vitamin B1 2 deficiency (non anemic) 88506815 E53.8 Continue on B12/folate supplement ation. Spent up to 25 minutes preparing to see the patient (eg, review of tests), obtaining and/or reviewing separately obtained history, performing a medically appropriat e examinatio n and evaluation , counseling and educating the patient, ordering medication s, tests, along with documentin g clinical informatio n in the electronic health record, independen tly interpreti ng results and communicat ing results to the patient. Patient can be followed by PCP - she/he is aware of my resignatio n and last day of August 06. If needed his/her PCP can refer patient to another endocrinol ogist in the area. All questions /concerns answered and refills necessary at visit today. Health Concerns Section Related Observation LastModified by Organization Detai ls LastModified Time None Recorded Concern Status LastModified by Organization Details LastModified Time None Recorded Advance Directives Directive None Recorded Payers Insurance Date Sequence Insurance Name Policy Number Policy Gonzalez Covered Member ID Gonzalez Member ID Guarantor Name 07/25/2023 1 Online [employer] - OPEN ACCESS Chris Rivers [id number] OI Chris Rivers Notes Date Note Type Note Provider Name and Address Organization Details Recorded Time 07/26/2023 text/html 63 yo male comes in for follow up in management of well controlled type 2 DM (A1C of 6.5% down from 6.9%), hypogonadism, and mixed dyslipidemia. last seen in October at that time we had patient continue on tresiba 72 units at bedtime with self titration instructions.We had patient continue on metformin, rybelsus 7 mg daily, and farxiga 10 mg daily as patient tolerating well. we continued niacin, vascepa and statin therapy. we continued jatenzo 237 mg twice daily. He has good energy overall- he denies any headaches, hypertension or flushing/visual changes. He has sugars running in range under 130 mg/dL typically with a few outliers over 150 mg/dL Denies any hypoglycemia. He is doing well [facility] 07/05/23:H/H 16/49microalbumin 84 ug/mgTSH of 1.39 uIU/mlFT4 of 0.92 ng/dL214/514/18/19 6a1c 6.5%testosterone 1206 ng/dLglucose 106 mg/dLCr normalLFT normal Marychuy Pires MD [address] [facility] [address], [place], [address], [place] [facility] 07/26/2023 10:06:02
[2025-05-08 13:53] LABS: Hematocrit 44.0 % (42.0-52.0); Hemoglobin 14.2 g/dL (14.0-18.0); Immature Granulocyte Percent A 0.5 % (0-0.5); Lymphocytes Absolute Auto 2.16 K/mm3 (0.9-3.2); Mean Corpuscular HGB Conc 32.3 g/dl (32-36); Mean Corpuscular Hemoglobin 27.0 pg (26-34); Mean Corpuscular Volume 83.7 fl (80-100); Nucleated Red Blood Cells Absolute Auto 0.000 K/mm3 (0.0-0.012); Nucleated Red Blood Cells Perc 0.0 % (0.0-0.2); Platelet Count Result 242 k/mm3 (150-375); Red Blood Count 5.26 M/mm3 (4.6-6.20); White Blood Count 7.5 K/mm3 (4.5-10.0)
[2025-05-08 13:57] LABS: Blood Urea Nitrogen 16 mg/dL (8-26); Carbon Dioxide 19 mmol/L (22-30); Chloride 103 mmol/L (98-109); Estimated Glomerular Filt Rate > 60; Glucose 218 mg/dL (70-105); Ionized Calcium (POC) 1.12 mmol/L (1.11-1.31); Potassium 4.0 mmol/L (3.5-4.9); Sodium 139 mmol/L (138-146)
[2025-05-08 17:00] LABS: Alanine Aminotransferase 54 U/L (6-50); Albumin Level 4.2 g/dL (3.5-5.1); Alkaline Phosphatase 59 U/L (38-126); Anion Gap 12 mmol/L (4-12); Aspartate Amino Transferase 59 U/L (17-59); Bilirubin,Total 0.4 mg/dL (0.2-1.3); Blood Urea Nitrogen 15 mg/dL (9-20); Calcium 8.8 mg/dL (8.4-10.2); Carbon Dioxide 20 mmol/L (22-30); Chloride 105 mmol/L (98-107); Estimated Glomerular Filt Rate > 60; Glucose 209 mg/dL (65-110); Potassium 4.1 mmol/L (3.4-5.0); Sodium 137 mmol/L (137-145); Total Protein 7.3 g/dL (6.3-8.2)
== END 2025-05-08 13:36 | disposition home or self-care (01) ==
LOC: ANHLAB 13:36
PROVIDERS: PCP Internal Medicine; Visit Provider Internal Medicine Hematology & Oncology
DX: D75.1 Secondary polycythemia (principal)
CPT/HCPCS: 36415; 80047; 80053; 85025